=== PATIENT | female | born 1990 | race Caucasian/White ===

== ENCOUNTER 2023-05-12 19:10 | Emergency (ER) | payer BC, SELFPAY ==
[2023-05-12 19:24] VITALS: BP 100/70; PULSE 69; RESP 20; TEMP 36.9; O2SAT 97; BMI 30.4
--- NOTE | 2023-05-12 19:31 | ECG_ITS ---
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
--- NOTE | 2023-05-12 21:43 | ED.CHESTPAI1 ---
HPI - Chest Pain General Chief Complaint: Chest Pain Stated Complaint: CHEST PAIN Time Seen by Provider: 05/12/23 19:31 Source: patient Mode of arrival: walk-in Limitations: no limitations History of Present Illness HPI narrative: I did not see or examine the patient. An EKG was obtained in triage and then the patient was placed back in the waiting room. She left without being seen by me or the APC. Exam Constitutional Vital Signs, click to edit/add: Last Vital Signs Temp 98.5 F 05/12/23 19:24 Pulse 69 05/12/23 19:24 Resp 20 05/12/23 19:24 BP 100/70 05/12/23 19:24 Pulse Ox 97 05/12/23 19:24 O2 Del Method Room Air 05/12/23 19:24 Course Vital Signs Vital signs: Vital Signs Temperature 98.5 F 05/12/23 19:24 Pulse Rate 69 05/12/23 19:24 Respiratory Rate 20 05/12/23 19:24 Blood Pressure 100/70 05/12/23 19:24 Pulse Oximetry 97 05/12/23 19:24 Oxygen Delivery Method Room Air 05/12/23 19:24 Temperature 98.5 F 05/12/23 19:24 Pulse Rate 69 05/12/23 19:24 Respiratory Rate 20 05/12/23 19:24 Blood Pressure 100/70 05/12/23 19:24 Pulse Oximetry 97 05/12/23 19:24 Oxygen Delivery Method Room Air 05/12/23 19:24 MDM - Chest Pain MDM Narrative Medical decision making narrative: I saw and reviewed the patient's EKG - see below I ordered blood tests and chest x-ray on this patient but she left without being seen. ECG Data Attestation: I personally reviewed and interpreted this ECG as follows: Interpretation: EKG interpretation: Emergency Department physician interpretation. Normal sinus rhythm at 60bpm. moderate right axis, normal intervals and no ST segment elevation or depression. Discharge Plan Discharge Patient Disposition: Left Without Being Seen Discharge Date/Time: 05/12/23 19:53
== END 2023-05-12 19:53 | disposition left against medical advice (07) ==
LOC: ER 19:42
PROVIDERS: Emergency Provider Emergency Medicine
DX: R07.9 Chest pain, unspecified (principal); Z53.21 Procedure and treatment not carried out due to patient leaving prior to being seen by health care provider
CPT/HCPCS: 80048; 84484; 85378; 93005

== ENCOUNTER 2024-04-10 09:02 | Outpatient (OUT) | payer OTHER, BC, SELFPAY ==
--- NOTE | 2024-04-10 | XR_ITS ---
The [address] [address] Patient Name: ELOY FERMIN MRN: [id number] date: 1990 Sex: F Assigned Patient Location: Current Patient Location: Accession/Order Number: [id number] Exam Date: 04/10/2024 09:08 Report Date: 04/11/2024 10:20 At the request of: LEELA GOODWIN Procedure: XR hand RT min 3V PROCEDURE: XR finger RT min 2V, XR hand RT min 3V COMPARISON: None. HISTORY: RIGHT FINGER PAIN FINDINGS: BONES:3 mm dorsal plate avulsion fracture base of the fifth distal phalanx with 2 mm of distraction. No dislocation. SOFT TISSUES:Soft tissue swelling EFFUSION:None visible. OTHER: Negative. XR/XR hand RT min 3V IMPRESSION: Dorsal plate avulsion fracture fifth distal phalanx Electronically authenticated by: KEISHA KENT Date: 04/11/2024 10:20
--- NOTE | 2024-04-10 | XR_ITS ---
The [address] [address] Patient Name: ELOY FERMIN MRN: [id number] date: 1990 Sex: F Assigned Patient Location: Current Patient Location: Accession/Order Number: [id number] Exam Date: 04/10/2024 09:51 Report Date: 04/11/2024 10:20 At the request of: LEELA GOODWIN Procedure: XR finger RT min 2V PROCEDURE: XR finger RT min 2V, XR hand RT min 3V COMPARISON: None. HISTORY: RIGHT FINGER PAIN FINDINGS: BONES:3 mm dorsal plate avulsion fracture base of the fifth distal phalanx with 2 mm of distraction. No dislocation. SOFT TISSUES:Soft tissue swelling EFFUSION:None visible. OTHER: Negative. XR/XR finger RT min 2V IMPRESSION: Dorsal plate avulsion fracture fifth distal phalanx Electronically authenticated by: KEISHA KENT Date: 04/11/2024 10:20
== END 2024-04-10 09:03 | disposition home or self-care (01) ==
LOC: EC 09:02
PROVIDERS: Visit Provider Orthopaedic Surgery
DX: M79.641 Pain in right hand (principal); S62.636A Displaced fracture of distal phalanx of right little finger, initial encounter for closed fracture
CPT/HCPCS: 73130; 73140

== ENCOUNTER 2024-04-11 13:59 | Day surgery (SDC) | payer OTHER, BC, SELFPAY ==
--- NOTE | 2024-04-11 | FL_ITS ---
[address] [address] Patient Name: ELOY FERMIN MRN: [id number] date: 1990 Sex: F Assigned Patient Location: SURGOUT Current Patient Location: Accession/Order Number: [id number] Exam Date: 04/11/2024 16:00 Report Date: 04/12/2024 09:33 At the request of: LEELA GOODWIN Procedure: FL fluoroscopy <1hr NON-READ EXAM: FL fluoroscopy <1hr NON-READ HISTORY: TECHNIQUE: FINDINGS: Please see Operative Report. Electronically authenticated by: RADIOLOGIST NO Date: 04/12/2024 09:33
--- NOTE | 2024-04-11 14:06 | ECG_ITS ---
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
[2024-04-11 14:16] LABS: Basophils Percent Auto 0.6 % (0.2-2.0); Eosinophils Absolute Auto 0.1 10^3/uL (0.0-0.7); Eosinophils Percent Auto 1.2 % (0.9-7.0); Hematocrit 39.2 % (36.0-48.0); Hemoglobin 12.9 g/dL (12.0-16.0); Immature Granulocytes Abs Auto 0.01 10^3/uL (0.00-0.03); Immature Granulocytes Pct Auto 0.2 % (0.0-0.5); Lymphocytes Absolute Auto 2.7 10^3/uL (1.2-3.8); Lymphocytes Percent Auto 40.5 % (20.5-60.0); Mean Corpuscular HGB Conc 32.9 g/dL (29.9-35.2); Mean Corpuscular Hemoglobin 29.4 pg (26.7-34.0); Mean Corpuscular Volume 89.3 fL (81.0-99.0); Monocytes Absolute Auto 0.5 10^3/uL (0.3-0.8); Monocytes Percent Auto 7.6 % (1.7-12.0); Neutrophils Absolute Auto 3.3 10^3/uL (1.4-6.5); Neutrophils Percent Auto 49.9 % (43.0-75.0); Platelet Count 234 10^3/uL (150-450); Red Blood Count 4.39 10^6/uL (4.20-5.40); Red Cell Distribution Width 12.2 % (11.0-15.0); White Blood Count 6.6 10^3/uL (4.0-11.0)
[2024-04-11 14:28] LABS: Anion Gap 10.6; BUN Creatinine Ratio 16.2; Calcium 8.9 mg/dL (8.5-10.1); Carbon Dioxide 27.3 mmol/L (21.0-32.0); Chloride 108 mmol/L (98-107); Estimated GFR (African America >60 (>=60 mL/min/1.73m^2); Estimated GFR (Non-African Ame >60 (>=60 mL/min/1.73m^2); Glucose 90 mg/dL (74-106); Potassium 3.9 mmol/L (3.5-5.1); Sodium 142 mmol/L (136-145)
[2024-04-11 14:30] VITALS: BP 135/62; PULSE 72; TEMP 36.6; O2SAT 97; BMI 36.0
[2024-04-11 14:33] LABS: INR 1.07; Prothrombin Time 11.3 sec (9.0-11.6)
[2024-04-11 14:35] LABS: HCG Qualitative NEGATIVE (NEGATIVE); Internal Control Within Normal Limits
[2024-04-11 15:10] LABS: Partial Thromboplastin Time 34.5 sec (22.3-36.2)
[2024-04-11] MEDS: 0.9 % SODIUM CHLORIDE 500 ML 50 ML IV (15:17)
[2024-04-11] MEDS: CEFAZOLIN SODIUM 2 GM/50 ML D5W PREMIX IV (15:51)
[2024-04-11] MEDS: BUPIVACAINE HCL 0.5% PF 50 MG/10 ML VIAL INJ (16:08)
[2024-04-11] MEDS: LIDOCAINE HCL 1% 100 MG/10 ML MDV 3 ML INJ (16:08)
[2024-04-11 16:43] VITALS: BP 137/72; PULSE 85; TEMP 36.6; O2SAT 100
--- NOTE | 2024-04-11 16:46 | PM.ORPRC ---
Procedure Note Date of procedure: 04/11/24 Pre-op diagnosis: Right small finger bony mallet fracture Post-op diagnosis: same as pre-op Procedure: Procedures:: Right small finger closed reduction percutaneous pinning Operative procedure: After informed consent was obtained the patient was brought to the operating room where monitored anesthetic was administered. 3 mL 1% lidocaine plain combined with 3 mL 0.5% Marcaine plain were used to perform a digital block. The right hand was prepped and draped in the usual sterile fashion. Using C-arm fluoroscopy as guidance a 4 5 K wire was placed from the tip of the finger extending into the intramedullary canal of the distal phalanx of the small finger. This was stopped short of the DIP joint. With full extension then of the DIP joint the fracture was not reduced. Next to the fifth DIP joint was placed in hyperflexion and using fluoroscopy under the lateral view a blocking K wire was placed just posterior to the bony mallet fragment and driven across both cortices from dorsal to ventral. Next with extension of the DIP joint there was nice reduction of the fracture fragment to the shaft of the distal phalanx. The intramedullary K wire was then driven across the DIP joint. Final x-rays in multiple planes revealed a reduced DIP joint as well as a reduced fracture fragment. Less than 1 mm of articular step-off. K wires were cut just protruding out of the skin. Sterile dressing was placed and a loosely placed plaster cast was placed across the DIP joint. This was overwrapped with Coban. Patient was brought to the recovery room in stable condition. There were no intraoperative or immediate postoperative complications. Anesthesia: MAC and local Surgeon: Niko Leonard Estimated blood loss (mL): 1 Pathology: none sent Condition: stable Disposition: PACU
[2024-04-11 16:58] VITALS: BP 154/82; PULSE 73; O2SAT 100
[2024-04-11 17:13] VITALS: BP 160/90; PULSE 65; O2SAT 100
== END 2024-04-11 17:20 | disposition home or self-care (01) ==
PROVIDERS: Visit Provider Orthopaedic Surgery
PROC: (CPT 1820; principal; 2024-04-11 15:30)
DX: S62.636A Displaced fracture of distal phalanx of right little finger, initial encounter for closed fracture (principal); D68.00 Von Willebrand disease, unspecified; X58.XXXA Exposure to other specified factors, initial encounter
CPT/HCPCS: 26756; 36415; 76000; 80048; 84703; 85025; 85610; 85730; 93005; J0665; J0690; J2250; J2704; J3010

== ENCOUNTER 2024-04-24 08:38 | Outpatient (OUT) | payer OTHER, BC, SELFPAY ==
--- NOTE | 2024-04-24 | XR_ITS ---
The [address] [address] Patient Name: ELOY FERMIN MRN: [id number] date: 1990 Sex: F Assigned Patient Location: Current Patient Location: Accession/Order Number: [id number] Exam Date: 04/24/2024 08:45 Report Date: 04/26/2024 06:40 At the request of: LEELA GOODWIN Procedure: XR finger RT min 2V PROCEDURE: XR finger RT min 2V HISTORY: RIGHT FINGER PAIN ; distal 5th phalanx fracture. COMPARISON: XR finger right 04/10/2024 FINDINGS: BONES:Interval pinning of the distal interphalangeal joint of the 5th digit and mildly displaced posterior corner fracture. SOFT TISSUES:Soft tissue swelling of 5th digit. EFFUSION:None visible. OTHER: Negative. XR/XR finger RT min 2V IMPRESSION: 1. Interval surgical pinning for repair of 5th distal phalanx posterior corner fracture. Electronically authenticated by: LEELA BARKSDALE Date: 04/26/2024 06:40
--- OUTSIDE RECORDS SUMMARY | 2024-04-24 08:57 | XMS_ITS | CCD ---
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 Role Phone CHRISTELLE ., DR BHAGAT Admitting Unavailable REQUEST, DR CAL LISTED Primary Care Unavaila ble CHRISTELLE ., DR BHAGAT Attending Unavailable CHRISTELLE ., DR BHAGAT Consulting Unavailable REQUEST, DR MCCALL LISTED Primary Care Unavaila ble WEST, DR KEISHA Alvarez Consulting Unavailable CHRISTELLE ., DR BHAGAT Attending Unavailable CHRISTELLE ., DR BHAGAT Admitting Unavailable CHRISTELLE ., DR BHAGAT Consulting Unavailable CHRISTELLE ., DR BHAGAT Attending Unavailable CHRISTELLE ., DR BHAGAT Consulting Unavailable CHRISTELLE ., DR BHAGAT Admitting Unavailable REQUEST, DR MCCALL LISTED Primary Care Unavaila BALDEMAR Mackey Attending Unavailable BALDEMAR FLETCHER Consulting Unavailable BALDEMAR FLETCHER Admitting Unavailable REQUEST, DR MCCALL LISTED Primary Care Unavaila ble NIKKI HATFIELD Consulting Unavailable REQUEST, DR MCCALL LISTED Primary Care Unavaila ble CHRISTELLE ., DR BHAGAT Attending Unavailable CHRISTELLE ., DR BHAGAT Consulting Unavailable CHRISTELLE ., DR BHAGAT Admitting Unavailable 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, 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 A Primary Care Provider Unavailable Primary Care Provider Unavailabl e OLAYINKA BOURGEOIS Attending Unavailable CHRISTELLEOLAYINKA Attending Unavailable CHRISTELLEOLAYINKA Attending Unavailable Allergies Allergy Classification Reported Allergen(s) Allergy Type Date of Onset Reaction(s) Facility (1 source) NSAIDs Drug allergy (disorder) [facility] Repository (7 sources) Non-steroidal anti-inflammator y agent Propensity to adverse reactions to drug 2 [employer] [facility] Work Phone: (2 sources) Non-steroidal anti-inflammator y agent Drug Intolerance 2 [facility] Work Phone: Medications Current Medications Medication Drug Class(es) Dates Sig (Normalized) Sig (Original) acetaminophen 500 mg oral capsule (8 sources) Start: 01-21-2024 take 1000 mg by mouth every six hours Acetaminophen Active 1000 MG PO Every 6 hours January 21, 2024 12:00am Start: 05-13-2023 take 2 tablets by mo uth every six hours acetaminophen (TYLENOL EXTRA STRENGTH) 500 mg tablet Take 2 tablets (1,000 mg total) by mouth every 6 (six) hours. 60 tablet 1 05/13/2023 Active cholecalciferol 0.1 mg oral capsule (11 sources) Vitamin D Start: 06-18-2022 take 1 capsule by mouth once in the morning cholecalciferol, vitamin D3, (VITAMIN D3) 100 mcg (4,000 unit) capsule Indications: Vitamin D deficiency Take 4,000 Units by mouth in the morning. 30 capsule 11 06/18/2022 Active cholecalciferol (Vitamin D-3) 25 MCG (1000 UT) capsule Vitamin D3 Active Cholecalciferol 10 MCG (400 UNIT) chewable tablet Cholecalciferol Active citalopram 20 mg oral tablet (2 sources) Serotonin Reuptake Inhibitor Start: 04-12-2023 End: 04-11-2024 take 1 tablet by mouth in the morning citalopram (CeleXA) 20 MG tablet Indications: anxiety Take 1 tablet (20 mg) by mouth in the morning. 30 tablet 11 04/12/2023 Active ferrous sulfate 325 mg oral tablet (8 sources) Start: 03-31-2023 End: 08-02-2024 take 1 tablet by mouth once daily at breakfast ferrous sulfate 325 (65 FE) mg tablet Take 1 tablet (325 mg total) by mouth daily with breakfast. 90 tablet 3 08/03/2023 08/02/2024 Active folic acid 1 mg oral tablet (7 sources) Start: 01-06-2023 take 1 tablet by mouth in the morning folic acid (FOLVITE) 1 mg tablet Indications: Folate deficiency TAKE 1 TABLET (1 MG TOTAL) BY MOUTH IN THE MORNING 30 tablet 11 01/06/2023 Active 25/iron fum/folic/dha (-1 ORAL) (7 sources) 25/iron fum/folic/dha (-1 ORAL) Take by mouth. Active 25/iron fum/folic/dha (-1 ORAL) Take by mouth. 0 Active 27-1 MG tablet (2 sources) 27-1 MG tablet 1 (one) time each day at the same time. Active tranexamic acid 650 mg oral tablet (4 sources) Antifibrinolytic Agent Start: 4 End: 4 tranexamic acid (LYSTEDA) 650 mg tablet Indications: Type 1 von Willebrand disease (CMS-HCC) , Menorrhagia with regular cycle Take 2 tablets (1,300 mg total) by mouth 3 (three) times a day for 5 days. First dose: 1-2 hours pre-op, then every 8 hours for 5 days postop. 30 tablet 04/10/2024 04/15/2024 Active vitamin b12 2.5 mg oral tablet (9 sources) Vitamin B12 Start: 3 take 1 tablet by mouth in the morning cyanocobalamin, vitamin B-12, 2,500 mcg tablet Indications: B12 deficiency , Lactating mother Take 1 tablet by mouth in the morning. 30 tablet 11 06/18/2022 Active cyanocobalamin ( Vitamin B-12) 100 MCG tablet Vitamin B12 Active Completed/Discontinued Medications Medication Drug Class(es) Dates Sig (Normalized) Sig (Original) docusate sodium 100 mg oral capsule (1 source) Start: 03-31-2023 End: 08-03-2023 take 1 capsule by mouth in the morning, then take 1 capsule by mouth at bedtime docusate sodium (COLACE) 100 mg capsule Take 1 capsule (100 mg total) by mouth in the morning and 1 capsule (100 mg total) before bedtime. 60 capsule 1 03/31/2023 08/03/2023 Discontinued omeprazole 20 mg delayed release oral capsule (1 source) Proton Pump Inhibitor Start: 03-01-2023 End: 08-03-2023 take 1 capsule by mouth once daily in the morning omeprazole (PriLOSEC) 20 mg capsule TAKE 1 CAPSULE BY MOUTH EVERY DAY IN THE MORNING 30 capsule 3 03/01/2023 08/03/2023 Discontinued polyethylene glycol 3350 [id number] mg powder for oral solution (1 source) Osmotic Laxative Start: 04-01-2023 End: 08-03-2023 polyethylene glycol (GLYCOLAX) 17 gram packet Take 17 g by mouth in the morning. 30 packet 1 04/01/2023 08/03/2023 Discontinued Problems Active Problems Problem Classification Problem Date Documented Da te Episodic/Chronic Coagulation and hemorrhagic disorders (20 sources) von Willebrand disease type 1; Translations: [Type 1 von Willebrand disease (CMS-HCC)] Onset: 07-01-2006 Resolved: 04-04-2019 08-03-2023 Chronic Menstrual disorders (8 sources) Irregular menstruation, unspecified; Translations: [Menorrhagia] Onset: 06-09-2022 Chronic Nausea and vomiting (1 source) Nausea; Translations: [Nausea] 04-10-2024 Episodic Other endocrine disorders (1 source) Polycystic ovary syndrome; Translations: [Polycystic ovarian syndrome] 04-10-2024 Chronic Other gastrointestinal disorders (8 sources) Malabsorption - iron; Translations: [Intestinal malabsorption, unspecified] Onset: 08-03-2023 08-03-2023 Chronic Other hematologic conditions (1 source) H/O: anemia - iron deficient; Translations: [Personal history of diseases of the blood and blood-forming organs and certain disorders involving the immune mechanism] 08-03-2023 Episodic Other hematologic conditions (1 source) History of anemia; Translations: [Personal history of diseases of the blood and blood-forming organs and certain disorders involving the immune mechanism] 04-10-2024 Episodic Past or Other Problems Problem Classification Problem Date Documented Date Episodic/Chronic Contraceptive and procreative management (14 sources) Sterilization requested; Translations: [Encounter for sterilization] Onset: 12-30-2016 Resolved: 04-04-2019 12-03-2022 Episodic Deficiency and other anemia (7 sources) Folate deficiency anemia due to dietary causes; Translations: [Dietary folate deficiency anemia] Onset: 12-31-2022 02-12-2023 Episodic Genitourinary symptoms and ill-defined conditions (7 sources) Decreased urine output; Translations: [Anuria and oliguria] Onset: 12-29-2016 Resolved: 04-04-2019 08-24-2022 Episodic Hemorrhage during ; abruptio placenta; placenta previa (4 sources) Hemorrhage in early , unspecified; Translations: [HEMORRHAGE EARLY UNS] Onset: 08-09-2022 Episodic Hypertension complicating ; childbirth and the puerperium (7 sources) -induced hypertension; Translations: [Gestational [-induced] hypertension without significant proteinuria, unspecified trimester] Onset: 12-29-2016 Resolved: 04-04-2019 08-24-2022 Episodic Liveborn (7 sources) Born by section; Translations: [Single liveborn , delivered by ] Onset: 01-25-2018 Resolved: 04-04-2019 08-24-2022 Episodic Mood disorders (7 sources) Mood disorders Onset: 08-03-2023 08-03-2023 Nonmalignant breast conditions (7 sources) Lump in left breast; Translations: [Unspecified lump in the left breast, unspecified quadrant] Onset: 04-18-2020 Resolved: 05-28-2020 05-28-2020 Episodic Nutritional deficiencies (8 sources) Iron deficiency; Translations: [Iron deficiency] Onset: 08-03-2023 08-03-2023 Episodic Other complications of (9 sources) Iron deficiency anemia; Translations: [Anemia complicating , unspecified trimester] Onset: 08-05-2020 Resolved: 03-30-2023 12-31-2022 Chronic Other complications of (9 sources) Complication occurring during ; Translations: [Other diseases of the blood and blood-forming organs and certain disorders involving the immune mechanism complicating , unspecified trimester] Onset: 05-28-2020 Resolved: 03-30-2023 05-28-2020 Episodic Other complications of (9 sources) RhD negative; Translations: [Other specified related conditions, unspecified trimester] Onset: 09-16-2020 Resolved: 03-30-2023 03-05-2023 Episodic Other connective tissue disease (2 sources) Diastasis recti; Translations: [Separation of muscle (nontraumatic), other site] Onset: 11-08-2023 11-08-2023 Episodic Other and delivery including normal (20 sources) Encounter for supervision of other normal , first trimester; Translations: [Encounter for supervision of normal , unspecified, first trimester] Onset: 12-28-2016 Resolved: 03-04-2023 Episodic Previous (7 sources) ; Translations: [Maternal care for unspecified type scar from previous delivery] Onset: 04-18-2020 Resolved: 10-18-2020 10-18-2020 Episodic Residual codes; unclassified (1 source) Less than 8 weeks gestation of ; Translations: [< 8 WEEKS GESTATION ] Onset: 08-11-2022 Episodic Residual codes; unclassified (9 sources) Carrier of cystic fibrosis gene mutation; 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] Onset: 04-18-2020 12-03-2022 Episodic Results Test Name Value Interpretation Reference Range Facility CBC auto differentialon 07-09 Basophils (Bld) [#/Vol] 0.0 10*3/uL [facility] Basophils/100 WBC (Bld) 0.7 % [facility] Eosinophils (Bld) [#/Vol] 0.1 10*3/uL [facility] Eosinophils/100 WBC (Bld) 2.0 % [facility] Erythrocyte distribution width (RBC) [Ratio] 13.8 % 11.5 - 15.0 % [facility] Hematocrit (Bld) [Volume fraction] 41.2 % 35 - 47 % [facility] Hemoglobin (Bld) [Mass/Vol] 13.9 g/dL 11.7 - 15.5 g/dL [facility] Lymphocytes (Bld) [#/Vol] 1.7 10*3/uL [facility] Lymphocytes/100 WBC (Bld) 32.1 % [facility] MCH (RBC) [Entitic mass] 29.3 pg 27 - 34 pg [facility] MCHC (RBC) [Mass/Vol] 33.8 g/dL 32 - 36 g/dL [facility] MCV (RBC) [Entitic vol] 87 fL 80 - 100 fL [facility] Monocytes (Bld) [#/Vol] 0.6 10*3/uL [facility] Monocytes/100 WBC (Bld) 10.6 % [facility] Neutrophils (Bld) [#/Vol] 2.9 10*3/uL [facility] Neutrophils/100 WBC (Bld) 54.6 % [facility] Platelet mean volume (Bld) [Entitic vol] 8.4 fL 7 - 12 fL [facility] Platelets (Bld) [#/Vol] 244 10*3/uL [facility] RBC (Bld) [#/Vol] 4.75 10*6/uL [facility] WBC corrected for nucl RBC Auto (Bld) [#/Vol] 5.4 [facility] Cobalamin (Vitamin B12) [Mas s/Vol]on 08-03-2023 [facility] Ferritinon 08-03-2023 Ferritin [Mass/Vol] 39 ng/mL 11 - 307 ng/mL P [facility] Ferritin [Mass/Vol]on 2023 [facility] Iron and TIBCon 08-03-2023 Interpretation and review of laboratory results Abnormal [facility] Iron [Mass/Vol] 59 ug/dL 50 - 170 ug/dL [facility] Iron binding capacity [Mass/Vol] 414 ug/dL 250 - 425 ug/dL [facility] Iron saturation [Mass fraction] 14 Low [facility] Vitamin B12on 08-03-2023 Cobalamin (Vitamin B12) [Mass/Vol] 275 pg/mL 180 - 914 pg/mL [facility] HEP B SURFACE ANTIGEN SCREEN on 09-08-2022 HBsAg Screen Negative Normal Negative [facility] Comment on above: Performed By: #### A 1C #### [facility] [address] [place] [address] Dr. Emilie Plascencia HEPATITIS C VIRUS AB W/ REFL EX QUANTon 09-08-2022 HCV AB Non-Reactive Normal Non Reactive [facility] Comment on above: Performed By: #### H CVPCRR #### [facility] [address] [address] [address] Emilie Plascencia Interpretation: Comment Normal [facility] Comment on above: Result Comment: Not infected with HCV unless early or acute infection is suspected (which may be delayed in an immunocompromised individual), or other evidence exists to indicate HCV infection. Performed By: #### H CVPCRR #### [facility] [address] [place] [address] Dr. Emilie Plascencia HIV 1 AND 2 WITH REFLEXon HIV Screen 4th Generation wRfx Non-Reactive Normal Non Reactive [facility] Comment on above: Result Comment: HIV Negative HIV-1/HIV-2 antibodies and HIV-1 p24 antigen were NOT detected. There is no laboratory evidence of HIV infection. Performed By: #### H IV12 #### [facility] [address] [place] [address] Dr. Emilie Plascencia RPR QUANTon 09-08-2022 Rapid Plasma Reagin, Quant Non-Reactive Normal NonRea<1:1 [facility] Comment on above: Result Comment: Plea se Note: This test does not meet current guidelines for screening and diagnosis of syphilis. This test is intended for following treatment response in patients being treated for syphilis infection. To screen for syphilis infection, a reflex cascade that includes both RPR and a treponema-specific assay should be utilized, such as Treponema pallidum (Syphilis) Screening [place] (495148) or Rapid Plasma Reagin (RPR) Test With Reflex to Quantitative RPR and Confirmatory Treponema pallidum Antibodies (744127). Performed By: #### A 1C #### [facility] [address] [place] [address] Dr. Emilie Plascencia RUBELLA AB IGGon 09-08-2022 Rubella Antibodies, IgG 1.82 index Normal Immune >0.99 [facility] Comment on above: Result Comment: Non- immune <0.90 Equivocal 0.90 - 0.99 Immune >0.99 Performed By: #### R UBIGG #### [facility] [address] [place] [address] Dr. Emilie Plascencia BOX TEST SENT OUTon 09-06-19 23 SENT TO REF LAB 09/05/2022 Normal [facility] Comment on above: Performed By: #### A 1C #### [facility] [address] [place] [address] Dr. Emilie Plascencia CBC AUTO DIFFon 09-05-2022 BASO # 0.0 103/ul Normal 0.0-0.1 [facility] Comment on above: Performed By: #### C BC #### [facility] [address] [place] [address] Dr. Emilie Plascencia Basophils/100 WBC (Bld) 0.5 % Normal 0.2-2.0 [facility] Comment on above: Performed By: #### C BC #### [facility] [address] [place] [address] Dr. Emilie Plascencia EO # 0.1 103/ul Normal 0.0-0.7 [facility] Comment on above: Performed By: #### C BC #### [facility] [address] [place] [address] Dr. Emilie Plascencia Eosinophils/100 WBC (Bld) 1.2 % Normal 0.9-7.0 [facility] Comment on above: Performed By: #### C BC #### [facility] [address] [place] [address] Dr. Emilie Plascencia Erythrocyte distribution width (RBC) [Ratio] 12.8 % Normal 11.0-15.0 [facility] Comment on above: Performed By: #### C BC #### [facility] [address] [place] [address] Dr. Emilie Plascencia Hematocrit (Bld) [Volume fraction] 39.1 % Normal 36.0-48.0 [facility] Comment on above: Performed By: #### C BC #### [facility] [address] [place] [address] Dr. Emilie Plascencia Hemoglobin (Bld) [Mass/Vol] 12.9 g/dL Normal 12.0-16.0 [facility] Comment on above: Performed By: #### C BC #### [facility] [address] [place] [address] Dr. Emilie Plascencia IG # 0.04 10e3/ul Critically high 0.00-0.03 [facility] Comment on above: Performed By: #### C BC #### [facility] [address] [place] [address] Dr. Emilie Plascencia IG % 0.5 % Normal 0.0-0.5 [facility] Comment on above: Performed By: #### C BC #### [facility] [address] [place] [address] Dr. Emilie Plascencia LYMPH # 1.9 103/ul Normal 1.2-3.8 [facility] Comment on above: Performed By: #### C BC #### [facility] [address] [place] [address] Dr. Emilie Plascencia Lymphocytes/100 WBC (Bld) 23.7 % Normal 20.5-60.0 [facility] Comment on above: Performed By: #### C BC #### [facility] [address] [place] [address] Dr. Emilie Plascencia MANUAL DIFF REQ NO Normal [facility] Comment on above: Performed By: #### C BC #### [facility] [address] [place] [address] Dr. Emilie Plascencia MCH (RBC) [Entitic mass] 29.4 pg Normal 26.7-34.0 [facility] Comment on above: Performed By: #### C BC #### [facility] [address] [place] [address] Dr. Emilie Plascencia MCHC (RBC) [Mass/Vol] 33.0 g/dL Normal 29.9-35.2 [facility] Comment on above: Performed By: #### C BC #### [facility] [address] [place] [address] Dr. Emilie Plascencia MCV (RBC) [Entitic vol] 89.1 fL Normal 81.0-99.0 [facility] Comment on above: Performed By: #### C BC #### [facility] [address] [place] [address] Dr. Emilie Plascencia MONO # 0.5 103/ul Normal 0.3-0.8 [facility] Comment on above: Performed By: #### C BC #### [facility] [address] [place] [address] Dr. Emilie Plascencia Monocytes/100 WBC (Bld) 6.7 % Normal 1.7-12.0 [facility] Comment on above: Performed By: #### C BC #### [facility] [address] [place] [address] Dr. Emilie Plascencia NEUT # 5.4 103/ul Normal 1.4-6.5 [facility] Comment on above: Performed By: #### C BC #### [facility] [address] [place] [address] Dr. Emilie Plascencia Neutrophils/100 WBC (Bld) 67.4 % Normal 43.0-75.0 [facility] Comment on above: Performed By: #### C BC #### [facility] [address] [place] [address] Dr. Emilie Plascencia Platelet mean volume (Bld) [Entitic vol] 10.3 fL Normal 9.5-13.5 [facility] Comment on above: Performed By: #### C BC #### [facility] [address] [place] [address] Dr. Emilie Plascencia PLT 284 103/ul Normal 150-450 [facility] Comment on above: Performed By: #### C BC #### [facility] [address] [place] [address] Dr. Emilie Plascencia RBC 4.39 106/ul Normal 4.20-5.40 [facility] Comment on above: Performed By: #### C BC #### [facility] [address] [place] [address] Dr. Emilie Plascencia WBC 8.0 103/ul Normal 4.0-11.0 [facility] Comment on above: Performed By: #### C BC #### [facility] [address] [place] [address] Dr. Emilie Plascencia CULTURE URINEon 09-05-2022 CULTURE URINE Culture Observations : LIGHT GROWTH OF MIXED GENITAL ESCOBAR. NO POTENTIAL PATHOGENS SEEN. Normal [facility] Comment on above: Performed By: #### A 1C #### [facility] [address] [place] [address] Dr. Emilie Plascencia GLYCOHEMOGLOBIN A1Con 2022 ADA RECOMMENDATION SEE BELOW Normal [facility] Comment on above: Result Comment: ADA RECOMMENDED LIMIT 4.0 - 6.0 ADA THERAPEUTIC TARGET < 7.0 ACTION SUGGESTED > 7.0 Performed By: #### A 1C #### [facility] [address] [place] [address] Dr. Emilie Plascencia Glucose [Mass/Vol] 97 mg/dL Normal [facility] Comment on above: Performed By: #### A 1C #### [facility] [address] [place] [address] Dr. Emilie Plascenica HbA1c (Bld) [Mass fraction] 5.0 % Normal 4.5-6.2 [facility] Comment on above: Performed By: #### A 1C #### [facility] [address] [place] [address] Dr. Emilie Plascencia TSHon 09-05-2022 TSH 0.330 uIU/mL Critically low 0.358-3.740 [facility] Comment on above: Performed By: #### T SH #### [facility] [address] [place] [address] Dr. Emilie Plascencia TYPE AND SCREENon 09-05-2022 TYPE AND SCREEN Negative Normal [facility] Comment on above: Performed By: #### A 1C #### [facility] [address] [place] [address] Dr. Emilie Plascencia US PREG TVon 09-03-2022 US PREG TV EXAMINATION: US PREG TV HISTORY: Missed period COMPARISON: 08/09/2022 FINDINGS: Kincaid intrauterine gestation Gestational sac: 5.69 cm, 11 weeks 5 days CRL: 2.96 cm, 9 weeks 6 days Yolk sac: 2.6 mm heart rate: 164 bpm Cervix: Closed, 3.9 cm The uterus is normal in appearance. Anteverted, retroflexed The ovaries are not visualized Clinical age: 9 weeks 5 days Clinical MARY: 04/03/2023 Ultrasound age: 9 weeks 6 days Ultrasound MARY: 04/02/2023 IMPRESSION: Viable kincaid intrauterine measuring 9 weeks 6 days Electronically authenticated by: KEISHA KENT Date: 2022-09-03 15:33 Normal [facility] CBC AUTO DIFFon 08-09-2022 BASO # 0.0 103/ul Normal 0.0-0.1 [facility] Comment on above: Performed By: #### A 1C #### [facility] [address] [place] [address] Dr. Emilie Plascencia Basophils/100 WBC (Bld) 0.3 % Normal 0.2-2.0 [facility] Comment on above: Performed By: #### A 1C #### [facility] [address] [place] [address] Dr. Emilie Plascencia EO # 0.1 103/ul Normal 0.0-0.7 [facility] Comment on above: Performed By: #### A 1C #### [facility] [address] [place] [address] Dr. Emilie Plascencia Eosinophils/100 WBC (Bld) 1.4 % Normal 0.9-7.0 [facility] Comment on above: Performed By: #### A 1C #### [facility] [address] [place] [address] Dr. Emilie Plascencia Erythrocyte distribution width (RBC) [Ratio] 12.7 % Normal 11.0-15.0 [facility] Comment on above: Performed By: #### A 1C #### [facility] [address] [place] [address] Dr. Emilie Plascencia Hematocrit (Bld) [Volume fraction] 35.7 % Critically low 36.0-48.0 [facility] Comment on above: Performed By: #### A 1C #### [facility] [address] [place] [address] Dr. Emilie Plascencia Hemoglobin (Bld) [Mass/Vol] 12.0 g/dL Normal 12.0-16.0 [facility] Comment on above: Performed By: #### A 1C #### [facility] [address] [place] [address] Dr. Emilie Plascencia IG # 0.01 10e3/ul Normal 0.00-0.03 [facility] Comment on above: Performed By: #### A 1C #### [facility] [address] [place] [address] Dr. Emilie Plascencia IG % 0.2 % Normal 0.0-0.5 [facility] Comment on above: Performed By: #### A 1C #### [facility] [address] [place] [address] Dr. Emilie Plascencia LYMPH # 1.7 103/ul Normal 1.2-3.8 [facility] Comment on above: Performed By: #### A 1C #### [facility] [address] [place] [address] Dr. Emilie Plascencia Lymphocytes/100 WBC (Bld) 26.6 % Normal 20.5-60.0 [facility] Comment on above: Performed By: #### A 1C #### [facility] [address] [place] [address] Dr. Emilie Plascencia MANUAL DIFF REQ NO Normal [facility] Comment on above: Performed By: #### A 1C #### [facility] [address] [place] [address] Dr. Emilie Plascencia MCH (RBC) [Entitic mass] 29.3 pg Normal 26.7-34.0 [facility] Comment on above: Performed By: #### A 1C #### [facility] [address] [place] [address] Dr. Emilie Plascencia MCHC (RBC) [Mass/Vol] 33.6 g/dL Normal 29.9-35.2 [facility] Comment on above: Performed By: #### A 1C #### [facility] [address] [place] [address] Dr. Emilie Plascencia MCV (RBC) [Entitic vol] 87.3 fL Normal 81.0-99.0 [facility] Comment on above: Performed By: #### A 1C #### [facility] [address] [place] [address] Dr. Emilie Plascencia MONO # 0.5 103/ul Normal 0.3-0.8 [facility] Comment on above: Performed By: #### A 1C #### [facility] [address] [place] [address] Dr. Emilie Plascencia Monocytes/100 WBC (Bld) 6.9 % Normal 1.7-12.0 [facility] Comment on above: Performed By: #### A 1C #### [facility] [address] [place] [address] Dr. Emilie Plascencia NEUT # 4.2 103/ul Normal 1.4-6.5 [facility] Comment on above: Performed By: #### A 1C #### [facility] [address] [place] [address] Dr. Emilie Plasecncia Neutrophils/100 WBC (Bld) 64.6 % Normal 43.0-75.0 [facility] Comment on above: Performed By: #### A 1C #### [facility] [address] [place] [address] Dr. Emilie Plascencia Platelet mean volume (Bld) [Entitic vol] 9.7 fL Normal 9.5-13.5 [facility] Comment on above: Performed By: #### A 1C #### [facility] [address] [place] [address] Dr. Emilie Plascencia PLT 256 103/ul Normal 150-450 [facility] Comment on above: Performed By: #### A 1C #### [facility] [address] [place] [address] Dr. Emilie Plascencia RBC 4.09 106/ul Critically low 4.20-5.40 [facility] Comment on above: Performed By: #### A 1C #### [facility] [address] [place] [address] Dr. Emilie Plascencia WBC 6.5 103/ul Normal 4.0-11.0 [facility] Comment on above: Performed By: #### A 1C #### [facility] [address] [place] [address] Dr. Eimlie Plascencia ER URINE PROFILEon 3 Bilirubin Ql (U) Negative Normal NEGATIVE [facility] Comment on above: Performed By: #### E RUR #### [facility] [address] [place] [address] Dr. Emilie Plascencia Clarity (U) CLEAR Normal CLEAR [facility] Comment on above: Performed By: #### E RUR #### [facility] [address] [place] [address] Dr. Emilie Plascencia Color (U) LT. YELLOW Normal YELLOW [facility] Comment on above: Performed By: #### E RUR #### [facility] [address] [place] [address] Dr. Emilie MARSH A micrscopic examination will be performed if indicated. Normal [facility] Comment on above: Performed By: #### E RUR #### [facility] [address] [place] [address] Dr. Emilie Plascencia Glucose Ql (U) Negative Normal NEGATIVE [facility] Comment on above: Performed By: #### E RUR #### [facility] [address] [place] [address] Dr. Emilie Plascencia Hemoglobin Ql (U) Negative Normal NEGATIVE [facility] Comment on above: Performed By: #### E RUR #### [facility] [address] [place] [address] Dr. Emilie Plascencia Ketones Ql (U) Negative Normal NEGATIVE [facility] Comment on above: Performed By: #### E RUR #### [facility] [address] [place] [address] Dr. Emilie Plascencia LEUKOCYTES Negative Normal NEGATIVE [facility] Comment on above: Performed By: #### E RUR #### [facility] [address] [place] [address] Dr. Emilie Plascencia Nitrite Ql (U) Negative Normal NEGATIVE [facility] Comment on above: Performed By: #### E RUR #### [facility] [address] [place] [address] Dr. Emilie Plascencia pH (U) 6.0 [pH] Normal 5-9 [facility] Comment on above: Performed By: #### E RUR #### [facility] [address] [place] [address] Dr. Emilie Plascencia SPEC GRAVITY 1.010 Normal 1.005-<=1.025 [facility] Comment on above: Performed By: #### E RUR #### [facility] [address] [place] [address] Dr. Emilie Plascencia UA PROTEIN Negative Normal NEGATIVE/ TRACE [facility] Comment on above: Performed By: #### E RUR #### [facility] [address] [place] [address] Dr. Emilie Plascencia UR MICRO IND NOT INDICATED Normal [facility] Comment on above: Performed By: #### E RUR #### [facility] [address] [place] [address] Dr. Emilie Plascencia Urobilinogen Qn (U) 0.2 {Barbara'U}/dL Normal 0.2 - 1. 0 [facility] Comment on above: Performed By: #### E RUR #### [facility] [address] [place] [address] Dr. Emilie Plascencia PREG QUANT HCGon 08-09-2022 HCG QUANT 53119 mIU/mL Normal [facility] Comment on above: Performed By: #### P REGQNT #### [facility] [address] [place] [address] Dr. Emilie Plascencia HCG RANGE SEE BELOW Normal [facility] Comment on above: Result Comment: 5-50 0.2-1 WEEK 50-500 1-2 WEEKS 100-5,000 2-3 WEEKS 500-10,000 3-4 WEEKS 1,000-50,000 4-5 WEEKS 10,000-100,000 5-6 WEEKS 15,000-200,000 6-8 WEEKS 10,000-100,000 2-3 MONTHS Performed By: #### P REGQNT #### [facility] [address] [place] [address] Dr. Emilie Plascencia PROF CHEM 8 (BAS METB)on Anion gap [Moles/Vol] 12.3 mmol/L Normal [facility] Comment on above: Performed By: #### A 1C #### [facility] [address] [place] [address] Dr. Emilie Plascencia Calcium [Mass/Vol] 8.9 mg/dL Normal 8.5-10.[address] [facility] Comment on above: Performed By: #### A 1C #### [facility] [address] [place] [address] Dr. Emilie Plascencia Chloride [Moles/Vol] 107 mmol/L Normal 98-107 [facility] Comment on above: Performed By: #### A 1C #### [facility] [address] [place] [address] Dr. Emilie Plascencia CO2 [Moles/Vol] 26.6 mmol/L Normal 21.0-32.0 [facility] Comment on above: Performed By: #### A 1C #### [facility] [address] [address] [address] Emilie Plascencia Creatinine [Mass/Vol] 0.49 mg/dL Critically low 0.55-1.02 [facility] Comment on above: Performed By: #### A 1C #### [facility] [address] [place] [address] Dr. Emilie Plascencia EGFR-AF [place] >60 Normal >=60 [facility] Comment on above: Performed By: #### A 1C #### [facility] [address] [address] [address] Emilie Plascencia EGFR-NON AF [place] >60 Normal >=60 [facility] Comment on above: Performed By: #### A 1C #### [facility] [address] [place] [address] Dr. Emilie Plascencia Glucose [Mass/Vol] 93 mg/dL Normal 74-106 [facility] Comment on above: Performed By: #### A 1C #### [facility] [address] [address] [address] Emilie Plascencia Potassium [Moles/Vol] 3.9 mmol/L Normal 3.5-5.1 [facility] Comment on above: Performed By: #### A 1C #### [facility] [address] [place] [address] Dr. Emilie Plascencia Sodium [Moles/Vol] 142 mmol/L Normal 136-145 [facility] Comment on above: Performed By: #### A 1C #### [facility] [address] [place] [address] Dr. Emilie Plascencia Urea nitrogen [Mass/Vol] 10.0 mg/dL Normal 7.0-18.0 [facility] Comment on above: Performed By: #### A 1C #### [facility] [address] [place] [address] Dr. Emilie Plascencia Urea nitrogen/Creatinine [Mass ratio] 20.4 mg/mg Normal [facility] Comment on above: Performed By: #### A 1C #### [facility] [address] [place] [address] Dr. Emilie Plascencia US PREG TVon 08-09-2022 US PREG TV EXAM: US PREG TV INDICATION: Abnormal vaginal bleeding. COMPARISON: None for this . TECHNIQUE: Transvaginal pelvic ultrasound was performed. FINDINGS: Single intrauterine . Mean sac diameter: 1.3 cm, 5 weeks, 3 days [place]-rump length: 0.3 cm, 5 weeks, 6 days Yolk sac: Present heart rate: Not detected. Normal right ovary measuring 2.4 x 1.2 x 1.8 cm. Normal left ovary measuring 2.8 x 2.2 x 2.7 cm. Left ovary 2.8 x 2.2 x 2.7 cm corpus luteum cyst. No free pelvic fluid. IMPRESSION: Single intrauterine with gestational age of 5 weeks, 3 days based on today's ultrasound. No heart rate detected at this time, likely due to early gestation. Estimated delivery date is 04/05/2023. Electronically authenticated by: NIKKI HATFIELD Date: 2022-08-09 09:59 Normal [facility] PREG QUANT HCGon 06-05-2022 HCG QUANT <1 Normal [facility] Comment on above: Performed By: #### P REGQNT #### [facility] [address] [place] [address] Dr. Emilie Plascencia HCG RANGE SEE BELOW Normal [facility] Comment on above: Result Comment: 5-50 0.2-1 WEEK 50-500 1-2 WEEKS 100-5,000 2-3 WEEKS 500-10,000 3-4 WEEKS 1,000-50,000 4-5 WEEKS 10,000-100,000 5-6 WEEKS 15,000-200,000 6-8 WEEKS 10,000-100,000 2-3 MONTHS Performed By: #### P REGQNT #### [facility] [address] [place] [address] Dr. Emilie Plascencia PREG QUANT HCGon 05-27-2022 HCG QUANT 14 mIU/mL Normal [facility] Comment on above: Performed By: #### P REGQNT #### [facility] [address] [place] [address] Dr. Emilie Plascencia HCG RANGE SEE BELOW Normal [facility] Comment on above: Result Comment: 5-50 0.2-1 WEEK 50-500 1-2 WEEKS 100-5,000 2-3 WEEKS 500-10,000 3-4 WEEKS 1,000-50,000 4-5 WEEKS 10,000-100,000 5-6 WEEKS 15,000-200,000 6-8 WEEKS 10,000-100,000 2-3 MONTHS Performed By: #### P REGQNT #### [facility] [address] [place] [address] Dr. Emilie Plascencia PREG QUANT HCGon 05-25-2022 HCG QUANT 17 mIU/mL Normal [facility] Comment on above: Performed By: #### A 1C #### [facility] [address] [place] [address] Dr. Emilie Plascencia HCG RANGE SEE BELOW [facility] Comment on above: Result Comment: 5-50 0.2-1 WEEK 50-500 1-2 WEEKS 100-5,000 2-3 WEEKS 500-10,000 3-4 WEEKS 1,000-50,000 4-5 WEEKS 10,000-100,000 5-6 WEEKS 15,000-200,000 6-8 WEEKS 10,000-100,000 2-3 MONTHS Performed By: #### A 1C #### [facility] [address] [place] [address] Dr. Emilie Plascencia Vital Signs Date Time Vital Sign Value Performing Clinician Facility 04-10-2024 16:32-0500 Body height 157.5 cm [employer] Work Phone: [facility] 04-10-2024 16:32-0500 Body mass index (BMI) [Ratio] 33.65 kg/m2 [employer] Work Phone: [facility] 04-10-2024 16:32-0500 Body weight 83.46 kg [employer] Work Phone: [facility] 04-10-2024 16:32-0500 Diastolic blood pressure 70 mm[Hg] [employer] Work Phone: [facility] 04-10-2024 16:32-0500 Systolic blood pressure 118 mm[Hg] [employer] Work Phone: [facility] 01-21-2024 14:120400 Body height 157.[address] [facility] 01-21-2024 14:120400 Body mass index (BMI) [Ratio] 33.3 kg/m2 [facility] 01-21-2024 14:12-0400 Body temperature 98.9 [degF] [facility] 01-21-2024 14:120400 Body weight 82.[address] [facility] 01-21-2024 14:120400 Diastolic blood pressure 81 mm[Hg] [facility] 01-21-2024 14:120400 Heart rate 76 /min [facility] 01-21-2024 14:120400 Respiratory rate 16 /min [facility] 01-21-2024 14:120400 SaO2% (BldA) [Mass fraction] 97 % [facility] 01-21-2024 14:120400 Systolic blood pressure 118 mm[Hg] [facility] 08-03-2023 09:35-0500 Body height 157.5 cm Pineda Rojas MD Work Phone: [facility] 08-03-2023 09:35-0500 Body mass index (BMI) [Ratio] 32.02 kg/m2 Pineda Rojas MD Work Phone: [facility] 08-03-2023 09:35-0500 Body weight 79.4 kg Pineda Rojas MD Work Phone: [facility] 08-03-2023 09:35-0500 Diastolic blood pressure 66 mm[Hg] Pineda Rojas MD Work Phone: [facility] 08-03-2023 09:35-0500 Heart rate 78 /min Pineda Rojas MD Work Phone: [facility] 08-03-2023 09:35-0500 Systolic blood pressure 138 mm[Hg] Pineda Rojas MD Work Phone: [facility] Encounters Encounter Date Encounter Type Care Provider Facility Start: 04-10-2024 End: 04-10-2024 Office outpatient visit 15 minutes Olayinka Christelle DO Work Phone: [facility] Comment on above: H/O section ; Nausea; History of anemia; PCOS (polycystic ovarian syndrome) Start: 04-10-2024 End: 04-10-2024 ambulatory OLAYINKA CHRISTELLE Not Available Start: 04-10-2024 End: 04-10-2024 Bamboo flowsheet Olayinka Christelle DO Work Phone: [facility] Start: 04-10-2024 End: 04-10-2024 Bamboo flowsheet Olayinka Christelle DO Work Phone: [facility] Start: 04-10-2024 End: 04-10-2024 Telephone encounter Chelo Ness RN [facility] Comment on above: Surgical Or Dental C learance Type 1 von Willebran d disease ([facility]); Menorrhagia with regular cycle Start: 03-08-2024 End: 03-08-2024 Telephone encounter Chelo Ness RN [facility] Comment on above: Med Refill Start: 01-21-2024 End: 01-21-2024 ambulatory [facility] Work Phone: Start: 01-21-2024 End: 01-21-2024 Patient encounter procedure [facility] Work Phone: Start: 11-08-2023 End: 11-08-2023 ambulatory OLAYINKA CHRISTELLE Not Available Start: 08-24-2023 Documentation procedure [facility] Start: 08-03-2023 Orders Only Pineda Rojas MD Work Phone: [facility] Comment on above: Iron deficiency (Keshia korina Dx); Iron malabsorption; Type 1 von Willebrand disease ([facility]) Start: 08-03-2023 End: 08-03-2023 Office outpatient visit 15 minutes Pineda Rojas MD Work Phone: [facility] Comment on above: Type 1 von Willebran d disease ([facility]) (Primary Dx); History of iron deficiency anemia Start: 05-10-2023 End: 05-10-2023 ambulatory OLAYINKA BOURGEOIS Not Available Start: 11-04-2022 End: 11-04-[address] OLAYINKA BOURGEOIS . Facility: Start: 09-05-2022 End: 09-06-2022 ambulatory NONE LISTED REQUEST Facility: Start: 09-03-2022 End: 09-04-2022 ambulatory NONE LISTED REQUEST Facility: Start: 08-09-2022 End: 08-09-2022 ambulatory BALDEMAR ROBINSRACHELE Facility: Start: 05-25-2022 End: 06-06-[address] OLAYINKA BOURGEOIS . Facility: Procedures Date Procedure Procedure Detail Performing Clinician Start: 11-08-2023 H/O: section H/O s ection Olayinka Bourgeois DO Work Phone: Start: 08-03-2023 Adult depression screening assessment Pineda Rojas MD Work Phone: Start: 12-03-2022 H/O: section Previous delivery X 3, antepartum Pineda Rojas MD Work Phone: Start: 11-04-2022 Microscopic observat ion [Identifier] in Cervix by Cyto stain Pineda Rojas MD Work Phone: H/O: section H/O sectio n Olayinka Bourgeois DO Work Phone: Plan of Treatment Date Care Activity Detail Author Start: 12-31-2032 DTaP,Tdap and Td Vaccines (5 - Td or Tdap) DTaP,Tdap and Td Vaccines (5 - Td or Tdap) [facility] Start: 11-04-2025 Screening for malign ant neoplasm of cervix Pap Smear [facility] Start: 10-18-2024 End: 10-18-2024 Patient encounter procedure 10/18/2024 3:00 PM EDT Office Visit [facility] [address] [place] [id number] Olayinka Bourgeois DO [address] [place] [address] [facility] Start: 08-03-2024 Adult BMI Screening Adult BMI Screen ing [facility] Start: 08-03-2024 Depression Screening Depression Scre ening [facility] Start: 08-03-2024 Tobacco Screening Tobacco Screening [facility] Start: 05-02-2024 End: 05-02-2024 Patient encounter procedure 05/02/2024 8:00 AM EST Office Visit [facility] [address] [place] [address] Olayinka Bourgeois, DO [address] [place] [address] [facility] Start: 04-10-2024 End: 04-10-2024 Patient encounter procedure 04/10/2024 3:20 PM EST Consult [facility] [address] [place] [phone] Olayinka Bourgeois, DO [address] [place] [address] Arrived [facility] Comment on above: Arrived Start: 04-10-2024 End: 04-10-2025 CBC W Auto Differential panel - Blood CBC and differential Lab Routine History of anemia PCOS (polycystic ovarian syndrome) Expected: 04/10/2024 (Approximate), Expires: 04/10/2025 [facility] Comment on above: Expected: 04/10/2024 (Approximate), Expires: 04/10/2025 Start: 04-10-2024 End: 04-10-2025 DHEA DHEA Lab Routine History of anemia PCOS (polycystic ovarian syndrome) Expected: 04/10/2024, Expires: 04/10/2025 [facility] Comment on above: Expected: 04/10/2024 , Expires: 04/10/2025 Start: 04-10-2024 End: 04-10-2025 DHEA-sulfate DHEA-sulfate Lab Routine History of anemia PCOS (polycystic ovarian syndrome) Expected: 04/10/2024 (Approximate), Expires: 04/10/2025 [facility] Comment on above: Expected: 04/10/2024 (Approximate), Expires: 04/10/2025 Start: 04-10-2024 End: 04-10-2025 Follicle stimulating hormone Follicle stimulating hormone Lab Routine History of anemia PCOS (polycystic ovarian syndrome) Expected: 04/10/2024 (Approximate), Expires: 04/10/2025 [facility] Comment on above: Expected: 04/10/2024 (Approximate), Expires: 04/10/2025 Start: 04-10-2024 End: 04-10-2025 hCG, quantitative, hCG, quantitative, Lab Routine History of anemia PCOS (polycystic ovarian syndrome) Expected: 04/10/2024 (Approximate), Expires: 04/10/2025 [facility] Work Phone: Comment on above: Expected: 04/10/2024 (Approximate), Expires: 04/10/2025 Start: 04-10-2024 End: 04-10-2025 Hemoglobin A1c/Hemoglobin.total in Blood Hemoglobin A1c Lab Routine History of anemia PCOS (polycystic ovarian syndrome) Expected: 04/10/2024 (Approximate), Expires: 04/10/2025 [facility] Comment on above: Expected: 04/10/2024 (Approximate), Expires: 04/10/2025 Start: 04-10-2024 End: 04-10-2025 Luteinizing hormone Luteinizing hormone Lab Routine History of anemia PCOS (polycystic ovarian syndrome) Expected: 04/10/2024 (Approximate), Expires: 04/10/2025 [facility] Comment on above: Expected: 04/10/2024 (Approximate), Expires: 04/10/2025 Start: 04-10-2024 End: 04-10-2025 Thyrotropin [Units/volume] in Serum or Plasma TSH Lab Routine History of anemia PCOS (polycystic ovarian syndrome) Expected: 04/10/2024 (Approximate), Expires: 04/10/2025 [facility] Comment on above: Expected: 04/10/2024 (Approximate), Expires: 04/10/2025 Start: 04-10-2024 End: 04-10-2025 Thyroxine (T4) free [Mass/volume] in Serum or Plasma T4, free Lab Routine History of anemia PCOS (polycystic ovarian syndrome) Expected: 04/10/2024 (Approximate), Expires: 04/10/2025 [facility] Comment on above: Expected: 04/10/2024 (Approximate), Expires: 04/10/2025 Start: 04-10-2024 End: 04-10-2025 US for US PELVIS-TRANSVAG IF INDICATED Imaging Routine History of anemia PCOS (polycystic ovarian syndrome) Expected: 04/10/2024 (Approximate), Expires: 04/10/2025 [facility] Comment on above: Expected: 04/10/2024 (Approximate), Expires: 04/10/2025 Start: 02-06-2024 Influenza vaccination Influenza Vacc ine [facility] Start: 10-20-2009 Adult BMI Follow Up Plan Adult BMI Follow Up Plan [facility] Immunizations Immunization Date Immunization Notes Care Provider Fa [facility] 03-30-2023 RHO(D) immune globul in- IV or IM Pineda Rojas MD Work Phone: [facility] 02-12-2023 influenza, injectabl e, quadrivalent, preservative free Pineda Rojas MD Work Phone: [facility] 02-12-2023 RHO(D) immune globul in- IV or IM Pineda Rojas MD Work Phone: [facility] 02-12-2023 influenza virus vacc ine, unspecified formulation Chelo Ness RN [facility] 12-31-2022 RHO(D) immune globul in- IV or IM Pineda Roajs MD Work Phone: [facility] 12-31-2022 tetanus toxoid, redu sami diphtheria toxoid, and acellular pertussis vaccine, adsorbed Pineda Rojas MD Work Phone: [facility] 10-16-2020 RHO(D) immune globul in- IV or IM Pineda Rojas MD Work Phone: [facility] 09-30-2020 tetanus toxoid, redu sami diphtheria toxoid, and acellular pertussis vaccine, adsorbed Pineda Rojas MD Work Phone: [facility] 09-17-2020 influenza, injectabl e, quadrivalent, preservative free Pineda Rojas MD Work Phone: [facility] 01-27-2018 RHO(D) immune globul in- IV or IM Pineda Rojas MD Work Phone: [facility] 01-27-2018 tetanus toxoid, redu sami diphtheria toxoid, and acellular pertussis vaccine, adsorbed Pineda Rojas MD Work Phone: [facility] 12-30-2016 RHO(D) immune globul in- IV or IM Pinead Rojas MD Work Phone: [facility] 08-14-2016 influenza, injectabl e, quadrivalent, preservative free Pineda Rojas MD Work Phone: [facility] 05-04-2007 human papilloma viru s vaccine, quadrivalent Pineda Rojsa MD Work Phone: [facility] 05-04-2007 meningococcal polysaccharide (groups A, C, Y and W-135) diphtheria toxoid conjugate vaccine (MCV4P) Pineda Rojas MD Work Phone: [facility] 12-23-2005 hepatitis A vaccine, adult dosage Pineda Rojas MD Work Phone: [facility] 12-23-2005 hepatitis A vaccine, pediatric/adolescent dosage, 2 dose schedule Pineda Rojas MD Work Phone: [facility] 12-23-2005 hepatitis B vaccine, adult dosage Pineda Rojas MD Work Phone: [facility] 2005 hepatitis B vaccine, adult dosage Pineda Rojas MD Work Phone: [facility] 2005 hepatitis B vaccine, pediatric or pediatric/adolescent dosage Pineda Rojas MD Work Phone: [facility] 2005 tetanus toxoid, redu sami diphtheria toxoid, and acellular pertussis vaccine, adsorbed Pineda Rojas MD Work Phone: [facility] 2005 varicella virus vaccine Pineda Rojas MD Work Phone: [facility] [employer] Payers Date Payer Category Payer Private Health Insurance [id number] 2023 Managed Care Other (unspecified) [facility] [id number] 2023 Private Health Insurance [id number] 2020 [facility] [id number] 2020 [facility] Managed Care - Other [facility] [id number] 2020 Unknown [employer] OUT OF STATE PPO/TRUST [id number] 2020-Present [phone] [address] [place] [address] [id number] 1991 Unknown [id number] 1991 Unknown [id number] 1991 Unknown [id number] 1991 Unknown [id number] 1991 Unknown [id number] .[id number] 1991 Unknown [id number] .[id number] 1991 Unknown [id number] .[id number] 1991 Unknown [id number] 1959 Unknown [id number] 1959 Unknown [id number] Worker's Compensation [facility] [id number] Social History Date Type Detail Facility Start: 12-31-2022 End: 04-10-2024 Tobacco smoking status NHIS Never smoked tobacco [facility] Start: 12-31-2022 End: 04-10-2024 Tobacco use and exposure Smokeless tobacco non-user [facility] Start: 08-03-2023 Alcohol intake 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 (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) [facility] Start: 08-03-2023 End: 04-10-2024 Alcohol intake [facility] Start: 08-03-2023 End: 04-10-2024 Tobacco use panel [facility] How hard is it for you to pay for the very basics like food, housing, medical care, and heating Hard [facility] Adolescent depressio n screening assessment 0 [facility] Start: 07-29-2020 Education 15 [facility] Start: 1990 Sex Assigned At Female P [facility] Start: 05-15-2021 Gender identity Identifies as female gender (finding) [facility] Start: 01-08-2015 Sex Female (finding) [facility] Start: 11-08-2023 End: 04-10-2024 Alcoholic beverage intake Lifetime non-drinker (finding) [facility] NEGATED: Highlighted rowStart: NINF History of tobacco use Passive smoker [facility] Clinical Notes 08-03-2023 to 04-10-2024 Jeniffer Kemp - 04/10/2024 3:20 PM ESTTelephone Encounter - Chelo Ness RN - 04/10/2024 2:23 PM ESTTelephone Encounter - Chelo Ness RN - 04/10/2024 2:23 PM EST Note Date & Type Note Facility 04-10-2024 History of Present illness Narrative Reason for Appointment: Patient ID: Marylin Fermin is a 33 y.o. female who presents for Menstrual Problem Patient presents today for menstrual problems. 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 Type 1 von Willebrand disease ([facility]/HCC) 07/01/2006 Diastasis recti 11/08/2023 H/O section 11/08/2023 Resolved Ambulatory Problems Diagnosis Date Noted Hematologic disorder in mother affecting 05/28/2020 Iron deficiency anemia of mother during 08/05/2020 Rh negative state in antepartum period, third trimester 09/16/2020 Past Medical History: Diagnosis Date CF (cystic fibrosis) ([facility]) Gestational HTN 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[facility]) Miscarriage Need for rhogam due to Rh negative mother Von Willebrand disease ([facility]) HISTORY PAST MEDICAL HISTORY SOCIAL HISTORY Past Medical History: Diagnosis Date CF (cystic fibrosis) ([facility]) Gestational HTN 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 SURGICAL HISTORY Past Surgical History: Procedure Laterality Date BILATERAL SALPINGOOPHORECTOMY Bilateral 03/30/2023 BREAST BIOPSY SECTION, LOW TRANSVERSE 12/2016 SECTION, LOW TRANSVERSE 01/2018 SECTION, LOW TRANSVERSE 03/29/2023 with tubal ligation SECTION, LOW TRANSVERSE 03/30/2023 TUBAL LIGATION 03/29/2023 REVIEW OF SYSTEMS Review of Systems: Review of Systems Genitourinary: Positive for menstrual problem and pelvic pain. All other systems reviewed and are negative. OBJECTIVE Objective: OBGyn Exam Vitals: Estimated body mass index is 33.11 kg/m as calculated from the following: Height as of 05/10/23: 5' 2 . Weight as of 11/08/23: 181 lb. BP: No LMP recorded. ASSESSMENT & PLAN Patient to have telehealth appointment in 3 weeks. Discussed management endometrial ablation, Mirena or hysterectomy. Ordered PCOS labs and US to be done to check Uterine Scar from previous c-sections, which would effect options for management. Documented by Kely Cannon LPN on behalf of: Olayinka Bourgeois DO documented in this encounter [facility] 04-10-2024 Miscellaneous Notes Pre/ postop TXA documented in this encounter [facility] 04-10-2024 Telephone encounter Note Pre/ postop TXA [facility] 04-10-2024 Miscellaneous Notes Incoming patient message regarding surgery r/t a broken finger tomorrow, 04/11/24. Per Dr. Rojas's plan: TXA TID x 5 days, first dose being 1-2 hours prior to sx. Fax number for surgeon per patient message: LVM to patient to review plan and confirm pharmacy. Also to verify surgeon we are to fax clearance to. PC from patient, confirmed pharmacy and reviewed plan. Patient verbalized understanding. Script pended to Dr. Rojas. Clearance faxed via [employer]. documented in this encounter [facility] 04-10-2024 Telephone encounter Note Incoming patient message regarding surgery r/t a broken finger tomorrow, 04/11/24. Per Dr. Rojas's plan: TXA TID x 5 days, first dose being 1-2 hours prior to sx. Fax number for surgeon per patient message: LVM to patient to review plan and confirm pharmacy. Also to verify surgeon we are to fax clearance to. [facility] 04-10-2024 Telephone encounter Note PC from patient, confirmed pharmacy and reviewed plan. Patient verbalized understanding. Script pended to Dr. Rojas. Clearance faxed via [employer]. [facility] 03-08-2024 Miscellaneous Notes PC to patient to confirm pharmacy for menses TXA refill. [facility] [place] is preferred pharmacy. Updated in [employer]. documented in this encounter [facility] 03-08-2024 Telephone encounter Note PC to patient to confirm pharmacy for menses TXA refill. [facility] 03-08-2024 Telephone encounter Note [facility] [place] [facility] preferred [facility]. Updated in [employer]. [facility] 08-24-2023 History of Present illness Narrative Called and spoke with patient to scheduled iv iron on 08/18/23. She said she doesn't know if she can get off work and will call back to schedule. documented in this encounter [facility] 08-03-2023 History of Present illness Narrative Pt is here for 6 month follow up. Pt denies any bleeding issues. She reports being very dizzy the past couple of days and is having some neck pain. She is taking oral iron tablets and will need a refill. She has extreme fatigue. Images from the original note were not included. [facility] ADULT [facility] PEDIATRIC BENIGN HEMATOLOGY PEDIATRIC THROMBOPHILIA Dr.Dagmar Di Rojas OUTPATIENT FOLLOW-UP NOTE: [facility] Patient ID: Marylin Fermin, 32 y.o. female PCP: Amy Sullivan, ELECTRIC HOIST OPERATOR-COURT TRANSCRIBER : 1990 CHIEF COMPLAINT: Chief Complaint Patient presents with Follow-up HISTORY OF PRESENT ILLNESS: Marylin Fermin is a 32 y.o. female with history of type 1 von willebrand disease who presents today for follow-up at the [facility] due to recent . She was last seen in 12/2022 during . She was found have iron deficiency during . She was given intravenous iron with Venofer in 03/2023. She would improvement in her fatigue and dizziness with the iron infusions. She had her delivery on 03/29/2023. Her delivery was done via and she received a spinal for anesthesia. This went well without bleeding complications, but blood loss noted at 1400mL. She was having some bleeding in 04/2023 and took lysteda. Post- bleeding lasted for 1 month. Had tubal ligation as well. She is now here today for follow-up. PAST HEMATOLOGY HISTORY: She has a history of type 1 von Willebrand's disease. This was diagnosed [facility] in 2006 (age 16) when she developed bruising/ecchymoses with while playing rugby. She reports that her other initial symptoms were bleeding bumps on her skin, nose bleeds, and heavy periods. Oncology History Overview Note PATIENT DOES NOT HAVE CANCER. USING FOR BLEEDING HISTORY. Diagnosis: Type 1 vWD (vWag 43-55%, Rcof 30-33%() GOOD RESPONSE TO DDAVP Diagnosis hx: menorrhagia, epistaxis, prolonged bleeding with cuts Diagnostic Labs 08/24/06: Date Test Name Results Template Details 08/24/2006 Factor VIII Activity 2 Hours Post IV DDAVP 272 % activity Normal DDAVP Trial + Results open 08/24/2006 Factor VIII Activity Pre IV DDAVP 62 % activity Normal DDAVP Trial + Results open 08/24/2006 Factor VIII R: vWF assay 2 Hours Post IV DDAVP 192 % activity Normal DDAVP Trial + Results open 08/24/2006 Factor VIII R: vWF assay Pre IV DDAVP 37 % activity Abnormal DDAVP Trial + Results open 08/24/2006 PTT - Partial thromboplastin time - Pre Intranasal DDAVP (Stimate) Abnormal DDAVP Trial + Results open 08/24/2006 vWF Antigen 2 Hours Post IV DDAVP 169 % activity Normal DDAVP Trial + Results open 08/24/2006 vWF Antigen Pre IV DDAVP 52 % activity Normal DDAVP Trial + Results open 07/27/2006 Collagen ADP platelet function test 111 s Normal open 07/27/2006 Collagen/epinephrine platelet function test 208 s Abnormal open 07/27/2006 Factor VIII Activity 36 % activity Abnormal open 07/27/2006 Ristocetin cofactor assay 30 % activity Abnormal open 07/27/2006 vWF Antigen Baseline 55 % activity Normal open 07/27/2006 vWF multimer assay - von Willebrand factor (vWf) multimers in Platelet poor plasma by Immunoblot (IB) Normal open 07/01/2006 Factor VIII Activity Diagnosis Baseline 73 % activity Normal Coag Workup + Results open 07/01/2006 PT - Prothrombin time - INR in Platelet poor plasma by Coagulation assay 12.4 s Normal Coag Workup + Results open 07/01/2006 PTT - Partial thromboplastin time - Activated partial thrombplastin time (aPTT) in Platelet poor plasma by Coagulation assay 39.1 s Abnormal Coag Workup + Results open 07/01/2006 vWF Antigen Diagnosis Baseline 43 % Normal Coag Workup + Results open 07/01/2006 VWF factor activity - ristocetin cofactor diagnosis baseline 33 % activity Abnormal Coag Workup + Results open Type 1 von Willebrand disease (CMS-HCC) 07/01/2006 Initial Diagnosis Type 1 von Willebrand disease (HCC) 12/29/2016 Surgery - 1 unit platelets prior per previous attorney law clerk-unclear indication 10/15/2020 Surgery Delivery of baby girl. No treatment given. 03/29/2023 Surgery delivery of baby boy. No treatment needed. REVIEW OF SYSTEMS: Complete 10-point ROS is negative except as mentioned in HPI. PAST MEDICAL HISTORY: Past Medical History: Diagnosis Date Anemia History of gestational hypertension Lump of left breast 04/18/2020 Type 1 von Willebrand disease (CMS-HCC) PAST SURGICAL HISTORY: Past Surgical History: Procedure Laterality Date N/A 12/29/2016 Performed by Mel Luz MD at [facility] OR REPEAT N/A 10/15/2020 Performed by Vinicius Rosario MD at [facility] OR REPEAT N/A 01/25/2018 Performed by Ariel Ford MD at [facility] OR REPEAT TUBAL LIGATION N/A 03/29/2023 Performed by Keisha Baugh MD at [facility] OR INCISION AND DRAINAGE 03/30/2023 PAST FAMILY HISTORY: Family History Problem Relation Age of Onset Menorrhagia Mother Epistaxis Mother Hypertension Father No Known Problems Sister No Known Problems Brother No Known Problems Half Sister No Known Problems Half Brother No Known Problems Maternal Grandmother Dementia Paternal Grandmother Alzheimer's disease Paternal Grandmother Alzheimer's disease Paternal Grandfather Diabetes Neg Hx Mom has menorrhagia and heavy post- bleeding, she has not been tested for vWD. Sister and father were negative. SOCIAL HISTORY: Lives in [place], [place] with her family. 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 Tobacco Use Smoking status: Never Passive exposure: Never Smokeless tobacco: Never Vaping Use Vaping Use: Never used Substance and Sexual Activity Alcohol use: No Alcohol/week: 0.0 standard drinks of alcohol Drug use: No Sexual activity: Defer Partners: Male control/protection: None Other Topics Concern Not on file Social History Narrative Not on file Social Determinants of Health Financial Resource Strain: High Risk (03/08/2023) Overall Financial Resource Strain (CARDIA) Difficulty of Paying Living Expenses: Hard Food Insecurity: No Food Insecurity (08/03/2023) Hunger Screening Food Insecurity - Worry: Never True Food Insecurity - Inability: Never True Transportation Needs: No Transportation Needs (03/08/2023) PRAPARE - Transportation Lack of Transportation (Medical): No Lack of Transportation (Non-Medical): No Physical Activity: Not on file Stress: Not on file Social Connections: Not on file Interpersonal Safety: Not At Risk (12/03/2022) Humiliation, Afraid, Rape, and Kick questionnaire Fear of Current or Ex-Partner: No Emotionally Abused: No Physically Abused: No Sexually Abused: No Housing Instability: Low Risk (03/08/2023) Housing Instability Housing Instability: No MEDICATIONS: Current Outpatient Medications on File Prior to Visit Medication Sig Dispense Refill acetaminophen (TYLENOL EXTRA STRENGTH) 500 mg tablet Take 2 tablets (1,000 mg total) by mouth every 6 (six) hours. 60 tablet 1 cholecalciferol, vitamin D3, (VITAMIN D3) 100 mcg (4,000 unit) capsule Take 4,000 Units by mouth in the morning. 30 capsule 11 cyanocobalamin, vitamin B-12, 2,500 mcg tablet Take 1 tablet by mouth in the morning. 30 tablet 11 ferrous sulfate 325 (65 FE) mg tablet Take 1 tablet (325 mg total) by mouth daily with breakfast. 30 tablet 5 folic acid (FOLVITE) 1 mg tablet TAKE 1 TABLET (1 MG TOTAL) BY MOUTH IN THE MORNING 30 tablet 11 25/iron fum/folic/dha (-1 ORAL) Take by mouth. No current facility-administered medications on file prior to visit. ALLERGIES: Allergies Allergen Reactions Nsaids (Non-Steroidal Anti-Inflammatory Drug) Clotting disorder PHYSICAL EXAMINATION: Vital signs: BP 138/66 (BP Site: Left Arm, BP Postition: Sitting) Pulse 78 Ht 157.5 cm (5' 2 ) Wt 79.4 kg (175 lb 0.7 oz) Yes BMI 32.02 kg/m General appearance: awake, alert HEENT: supple, conjunctiva not pale CV: RRR, no murmurs PULM: CTAB, no wheezing ABD: soft, NT/ND EXT: No edema. LABORATORY DATA: Lab Results Component Value Date WBC 6.8 05/13/2023 HGB 12.9 05/13/2023 HCT 39.1 05/13/2023 MCV 88 05/13/2023 PLT 280 05/13/2023 Lab Results Component Value Date GLU 79 05/13/2023 CALCIUM 9.3 05/13/2023 SODIUM 137 05/13/2023 K 3.7 05/13/2023 CO2 25 05/13/2023 BUN 15 05/13/2023 CREATININE 0.67 05/13/2023 Lab Results Component Value Date ALT 3 03/30/2023 AST 13 03/30/2023 ALKPHOS 95 03/30/2023 Lab Results Component Value Date INR 1.1 05/13/2023 INR 1.0 03/29/2023 INR 1.0 02/12/2023 PROTIME 12.7 05/13/2023 PROTIME 11.5 03/29/2023 PROTIME 11.3 02/12/2023 BILLING: Total time spent was 23 minutes: Preparing to see the patient (e.g., review of tests) Obtaining and/or reviewing separately obtained history Performing a medically appropriate examination and/or evaluation Counseling and educating the patient/family/caregiver Ordering medications, tests, or procedures Documenting clinical information in the electronic or other health record IMAGING: Reviewed in [facility] ASSESSMENT/PLAN: Marylin Fermin is a 32 y.o. female with history of type 1 von willebrand disease who presents today for follow-up at the [facility] due to recent . 1. Type 1 von willebrand disease: Diagnosed based on low VWD levels (30% for Ristocetin at [facility]) in the setting of type A blood in 2006 (age 16). Multimers showed decrease in all multimers at that time. The patient was apparently diagnosed with type 1 VWD. Repeat VWD labs in 04/2023 showed antigen of 56, activity of 49, factor 8 of 69, and normal multimers. - Stable currently. - Anticipatory guidance given. - Notify [facility] of any upcoming surgeries or procedures. - No current menstrual bleeding (as ), but has used TXA PRN for menorrhagia in the past. - Our social welfare research worker met with the patient today during this comprehensive visit. 2. Iron deficiency anemia during recent : She was found have iron deficiency anemia during her recent . Her labs from 12/2022 showed hemoglobin of 12.3 and ferritin of 7. She was given IV iron with venofer 200mg x 5 doses in 03/2023. Hgb was 10-12 range in 03/2023 at time of delivery. Had 1400mL of EBL at time of delivery. Last hemoglobin in 05/2023 was 12.9. Check CBC and iron studies today. May need to consider repeat IV iron infusions given symptoms. Will await repeat labs. Continue oral iron and will refill. 3. Follow-up: - RTC in 1 year and PRN. Pineda Rojas MD Adult Instructional Leader [facility] Pager: [phone] Pt is a 32 year old female with vWD, here today with her , and 3 children Agreeable to meet with sw, family remained in the room Marylin resides in the [facility] with her Francisco (not affected), daughter Maryan 2 (vWD) and son Josiah (vWD) brother Ventura (not tested). There are no major bleeding concerns, she is currently still breast feeding Ventura, and has not had a period. There are no upcoming surgeries. 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 No major financial concerns reported today, family seems able to meet basic needs of the home. Insurance: family has commercial insurance. Family has submitted [facility] documents [facility], and have been approved through 03/09/24 for the children. This will help with any co-pays and other medications. The children were dressed appropriately, parents observed providing support and comfort for maryan who was crying. Dad appeared to be appropriate with his parenting by providing support. Parents appear to be loving and supportive. Marylin had some post , she is now doing much better, not taking any prescribed medications. Denies any SI or HI. No major psychosocial issues identified, sw encouraged particpation with [facility] activities, Camp, [employer], [employer], etc. Parents will consider camp for Josiah Much support provided Isidro FRIAS documented in this encounter [facility] Evaluation note Diagnosis Type 1 von Willebrand disease (CMS-HCC)- Primary Von Willebrand's disease History of iron deficiency anemia Personal history of diseases of blood and blood-forming organs documented [facility]* Diagnosis Iron deficiency- Primary Disorders of iron metabolism Iron malabsorption Other specified intestinal malabsorption Type 1 von Willebrand disease (CMS-HCC) Von Willebrand's disease [facility] note[facility] assessment information available [facility] Work Phone: Evaluation note* Diagnosis Type 1 von Willebrand disease (CMS-HCC) Von Willebrand's disease Menorrhagia with regular cycle documented [facility] this [facility]* Diagnosis H/O section Nausea Nausea alone History of anemia Personal history of diseases of blood and blood-forming organs PCOS (polycystic ovarian syndrome) Polycystic ovaries [facility] Attachments The following attachments cannot be sent through Care Everywhere. * Taking care of bruises (Colombian) documented [facility] SystemInstructionsNot on file documented in this [facility] SystemInstructionsNot on file documented in this encounterProPick[facility] SystemInstructionsNot on file [facility] SystemInstructionsNot on file documented in this encounterPro[facility] SystemInstructionsNot on file documented in this [facility]ProPick[facility] SystemInstructionsNot on file documented in [facility] Summary Purpose Family History Relationship Condition Age at Onset Recorded Date/T nida father Unknown Advance Directives Latest Code Status on File Code Status Date Activated Date Inactivated Comments Full Code 03/29/2023 12:13 PM 03/31/2023 3:01 PM Code Status History Code Status Date Activated Date Inactivated Comments Full Code 02/12/2023 6:12 PM 02/13/2023 12:01 PM Full Code 10/15/2020 1:10 AM 10/17/2020 2:44 PM Full Code 01/25/2018 10:45 AM 01/28/2018 3:36 PM Full Code 01/25/2018 10:04 AM 01/25/2018 10:45 AM Advance Directive Response Recorded Date/ Time Advance Directives No January 21, 2024 2:03pm Date Activated Date Inactivated Comments 03/29/2023 12:13 PM 03/31/2023 3:01 PM Date Activated Date Inactivated Comments 02/12/2023 6:12 PM 02/13/2023 12:01 PM Date Activated Date Inactivated Comments 10/15/2020 1:10 AM 10/17/2020 2:44 PM Date Activated Date Inactivated Comments 01/25/2018 10:45 AM 01/28/2018 3:36 PM Date Activated Date Inactivated Comments 01/25/2018 10:04 AM 01/25/2018 10:45 AM Chief Complaint and Reason for Visit Chief Complaint cough, congestion (c ovid neg) Additional Source Comments INFORMATION SOURCE (unrecogn ized section and content) DATE CREATED AUTHOR 11/13/2022 [facility] DATE CREATED AUTHOR AUTHOR'S ORGANIZ ATION 04/11/2024 [facility] EPIC Reason for Visit (unrecogniz ed section and content) Reason Comments Follow-up Reason Onset Date Comments Med Refill 03/08/2024 Reason Onset Date Comments Surgical Or Dental Clearance 04/10/2024 Reason Onset Date Comments Med Refill 04/10/2024 Reason Comments Menstrual Problem Care Teams (unrecognized sec tion and content) Automatic Drilling Machine Operator Relationship Specialty Start Date End Date Amy Sullivan APRN-CNP [address] [place] [address] PCP - General Family Medicine 05/28/20 Automatic Drilling Machine Operator Relationship Specialty Start Date End Date Amy Sullivan APRN-CNP [address] [place] [address] PCP - General Family Medicine 05/28/20 Automatic Drilling Machine Operator Relationship Specialty Start Date End Date Amy Sullivan APRN-CNP [address] [place] [address] PCP - General Family Medicine 05/28/20 Team Status: Active Member Role Status Dates Services Family Health Primary Care Provider Active Team Status: Inactive Member Role Status Dates Services Family Health Primary Care Provider Active Start: January 21, 2024 End: January 21, 2024 Fiona Smith APRN Attending Provider Active Start: January 21, 2024 End: January 21, 2024 Automatic Drilling Machine Operator Relationship Specialty Start Date End Date Amy Sullivan APRN-CNP [address] [place] [address] PCP - General Family Medicine 05/28/20 Automatic Drilling Machine Operator Relationship Specialty Start Date End Date Laurie AmyLAKSHMI Loco [address] [place] [id number] PCP - General Family Medicine 05/28/20 Automatic Drilling Machine Operator Relationship Specialty Start Date End Date LaurieDionLAKSHMI Loco [address] [place] [address] PCP - General Family Medicine 05/28/20 Automatic Drilling Machine Operator Relationship Specialty Start Date End Date Dion Sullivana IsraLAKSHMI [address] [place] [address] PCP - General Family Medicine 05/28/20 Goals (unrecognized section and content) Goals may be documented in a n alternate section FOR RECORDS PERTAINING TO PATIENTS WHO ARE OR HAVE BEEN ENROLLED IN A CHEMICAL DEPENDENCY/SUBSTANCEABUSE PROGRAM, SOME INFORMATION MAY BE OMITTED. This clinical summary was aggregated from multiple sources. Caution should be exercised in using it in the provision of clinical care. This summary normalizes information from multiple sources, and as a consequence, information in this document may materially change the coding, format and clinical context of patient data. In addition, data may be omitted in some cases. CLINICAL DECISIONS SHOULD BE BASED ON THE PRIMARY CLINICAL RECORDS. [facility] [employer], [facility]. provides no warranty or guarantee of the accuracy or completeness of information in this document.
== END 2024-04-24 08:39 | disposition home or self-care (01) ==
LOC: EC 08:38
PROVIDERS: Visit Provider Orthopaedic Surgery
DX: S62.636D Displaced fracture of distal phalanx of right little finger, subsequent encounter for fracture with routine healing (principal)
CPT/HCPCS: 73140

== ENCOUNTER 2024-06-12 12:34 | Outpatient (OUT) | payer OTHER, BC, SELFPAY ==
--- NOTE | 2024-06-12 | XR_ITS ---
The [address] [address] Patient Name: ELOY FERMIN MRN: [id number] date: 1990 Sex: F Assigned Patient Location: Current Patient Location: Accession/Order Number: [id number] Exam Date: 06/12/2024 12:35 Report Date: 06/12/2024 15:06 At the request of: LEELA GOODWIN Procedure: XR finger RT min 2V PROCEDURE: XR finger RT min 2V DATE: 06/12/2024 12:35 PM EST COMPARISONS: 04/24/2024 CLINICAL INDICATION: RIGHT FINGER PAIN FINDINGS: A surgical pin again traverses the fifth distal interphalangeal joint. Dorsal proximal avulsion fracture fifth distal phalanx again identified on lateral view. Fracture fragments appear to be in stable alignment. Based on these images there is been healing of the avulsion fracture fragment. It's difficult to well identify the fracture site due to the overlying fixation wire. XR/XR finger RT min 2V IMPRESSION: 1. Osseous structures appear to be held in good position and alignment 2. Based on lateral view, it appears there is healing at the avulsion fracture site. Electronically authenticated by: DERIK JARAMILLO Date: 06/12/2024 15:06
== END 2024-06-12 12:35 | disposition home or self-care (01) ==
LOC: EC 12:34
PROVIDERS: Visit Provider Orthopaedic Surgery
DX: S62.636D Displaced fracture of distal phalanx of right little finger, subsequent encounter for fracture with routine healing (principal)
CPT/HCPCS: 73140

== ENCOUNTER 2024-07-17 07:48 | Outpatient (OUT) | payer OTHER, BC, SELFPAY ==
--- NOTE | 2024-07-17 | XR_ITS ---
The [address] [address] Patient Name: ELOY FERMIN MRN: [id number] date: 1990 Sex: F Assigned Patient Location: Current Patient Location: Accession/Order Number: [id number] Exam Date: 07/17/2024 07:50 Report Date: 07/17/2024 09:01 At the request of: LEELA GOODWIN Procedure: XR finger RT min 2V PROCEDURE: XR finger RT min 2V COMPARISON: 06/12/2024 HISTORY: RIGHT FINGER PAIN FINDINGS: BONES:Interval removal of the 2 external pins fixing the previously identified fifth distal phalanx fracture. Stable healing of the dorsal plate avulsion fracture with bony bridging. No new fracture or dislocation SOFT TISSUES:Negative. No visible soft tissue swelling. EFFUSION:None visible. OTHER: Negative. XR/XR finger RT min 2V IMPRESSION: Interval removal of external pins with stable healing of the fifth distal phalanx fracture. Electronically authenticated by: KEISHA KENT Date: 07/17/2024 09:01
--- OUTSIDE RECORDS SUMMARY | 2024-07-17 08:01 | XMS_ITS | CCD ---
Author Organization [facility] Care Team Providers Care Case Assistant Name Role Phone CHRISTELLE ., DR BHAGAT [...] DR MCCALL LISTED Primary Care Unavaila ble ANITA HATFIELD Consulting Unavailable REQUEST, DR MCCALL LISTED Primary Care Unavaila ble CHRISTELLE ., DR BHAGAT Attending Unavailable CHRISTELLE ., DR BHAGAT Consulting Unavailable CHRISTELLE ., DR BHAGAT Admitting Unavailable Anglim PERMASTONE APPLICATOR-GUEST SERVICES AGENT, Amy A Primary Care Provider Unavailable Primary Care Provider Unavailabl e OLAYINKA BOURGEOIS Attending Unavailable CHRISTELLEOLAYINKA Attending Unavailable CHRISTELLEOLAYINKA Attending Unavailable Allergies Allergy Classification Reported Allergen(s) Allergy Type Date of Onset Reaction(s) Facility (1 source) NSAIDs Drug allergy (disorder) [facility] Repository (7 sources) Non-steroidal anti-inflammator y agent Propensity to adverse reactions to drug 2 [employer] Work Phone: (4 sources) Non-steroidal anti-inflammator y agent Drug Intolerance [...] 05/13/2023 Active cholecalciferol 0.1 mg oral capsule (15 sources) Vitamin D Start: 06-18-2022 take 1 [...] Cholecalciferol Active citalopram 20 mg oral tablet (4 sources) Serotonin Reuptake Inhibitor Start: 04-12-2023 End: [...] by mouth. 0 Active 27-1 MG tablet (4 sources) 27-1 MG tablet 1 (one) time [...] Active vitamin b12 2.5 mg oral tablet (11 sources) Vitamin B12 Start: 3 take 1 [...] 3 03/01/2023 08/03/2023 Discontinued polyethylene glycol 3350 40200 mg powder for oral solution (1 source) [...] 07-01-2006 Resolved: 04-04-2019 08-03-2023 Chronic Menstrual disorders (10 sources) Irregular menstruation, unspecified; Translations: [Menorrhagia] Onset: [...] disorders involving the immune mechanism] 04-10-2024 Episodic Residual codes; unclassified (2 sources) History of uterine scar from previous surgery; Translations: [Personal history of other specified diseases] 05-03-2024 Episodic Past or Other Problems Problem Classification [...] sources) Born by section; Translations: [Single liveborn infant, delivered by ] Onset: 01-25-2018 Resolved: 04-04-2019 08-24-2022 Episodic Mood disorders (7 sources) Mood disorders Onset: 08-03-2023 08-03-2023 Nonmalignant breast conditions (7 sources) Lump in left breast; Translations: [Unspecified lump in the left breast, unspecified quadrant] Onset: 04-18-2020 Resolved: 05-28-2020 05-28-2020 Episodic Nutritional deficiencies (8 sources) Iron deficiency; Translations: [Iron deficiency] Onset: 08-03-2023 08-03-2023 Episodic Other complications of (11 sources) Iron deficiency anemia; Translations: [Anemia complicating , unspecified trimester] Onset: 08-05-2020 Resolved: 03-30-2023 12-31-2022 Chronic Other complications of (11 sources) Complication occurring during ; Translations: [Other diseases of the blood and blood-forming organs and certain disorders involving the immune mechanism complicating , unspecified trimester] Onset: 05-28-2020 Resolved: 03-30-2023 05-28-2020 Episodic Other complications of (11 sources) RhD negative; Translations: [Other specified related conditions, unspecified trimester] Onset: 09-16-2020 Resolved: 03-30-2023 03-05-2023 Episodic Other connective tissue disease (4 sources) Diastasis recti; Translations: [Separation of muscle [...] ] Onset: 08-11-2022 Episodic Residual codes; unclassified (11 sources) Carrier of cystic fibrosis gene mutation; 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] Onset: 04-18-2020 12-03-2022 Episodic Results Test Name Value Interpretation Reference Range Facility CBC auto differentialon 07-09 Basophils (Bld) [#/Vol] 0.0 10*3/uL [facility] Basophils/100 WBC (Bld) 0.7 % [facility] Eosinophils (Bld) [#/Vol] 0.1 10*3/uL [facility] Eosinophils/100 WBC (Bld) 2.0 % [facility] Erythrocyte distribution width (RBC) [Ratio] 13.8 % 11.5 - 15.0 % [facility] Hematocrit (Bld) [Volume fraction] 41.2 % 35 - 47 % [facility] Hemoglobin (Bld) [Mass/Vol] 13.9 g/dL 11.7 - 15.5 g/dL [facility] Lymphocytes (Bld) [#/Vol] 1.7 10*3/uL [facility] Lymphocytes/100 WBC (Bld) 32.1 % [facility] MCH (RBC) [Entitic mass] 29.3 pg 27 - 34 pg [facility] MCHC (RBC) [Mass/Vol] 33.8 g/dL 32 - 36 g/dL [facility] MCV (RBC) [Entitic vol] 87 fL 80 - 100 fL [facility] Monocytes (Bld) [#/Vol] 0.6 10*3/uL [facility] Monocytes/100 WBC (Bld) 10.6 % [facility] Neutrophils (Bld) [#/Vol] 2.9 10*3/uL [facility] Neutrophils/100 WBC (Bld) 54.6 % [facility] Platelet mean volume (Bld) [Entitic vol] 8.4 fL 7 - 12 fL [facility] Platelets (Bld) [#/Vol] 244 10*3/uL [facility] RBC (Bld) [#/Vol] 4.75 10*6/uL [facility] WBC corrected for nucl RBC Auto (Bld) [#/Vol] 5.4 [facility] Cobalamin (Vitamin B12) [Mas s/Vol]on 08-03-2023 [facility] Ferritinon 08-03-2023 Ferritin [Mass/Vol] 39 ng/mL 11 - 307 ng/mL P [facility] Ferritin [Mass/Vol]on 2023 [facility] Iron and TIBCon 08-03-2023 Interpretation and review of laboratory results Abnormal [facility] Iron [Mass/Vol] 59 ug/dL 50 - 170 ug/dL [facility] Iron binding capacity [Mass/Vol] 414 ug/dL 250 - 425 ug/dL [facility] Iron saturation [Mass fraction] 14 Low [facility] Vitamin B12on 08-03-2023 Cobalamin (Vitamin B12) [Mass/Vol] 275 pg/mL 180 - 914 pg/mL [facility] HEP B SURFACE ANTIGEN SCREEN on 09-08-2022 HBsAg Screen Negative Normal Negative [facility] Comment on above: Performed By: #### A 1C #### [facility] [address] [place] [address] Dr. Eimlie Plascencia HEPATITIS C VIRUS AB W/ REFL EX QUANTon 09-08-2022 HCV AB Non-Reactive Normal Non Reactive [facility] Comment on above: Performed By: #### H CVPCRR #### [facility] [address] [place] [address] Dr. Emilie Plascencia Interpretation: Comment Normal [facility] Comment on above: Result Comment: Not infected with HCV unless early or acute infection is suspected (which may be delayed in an immunocompromised individual), or other evidence exists to indicate HCV infection. Performed By: #### H CVPCRR #### [facility] [address] [place] [address] Dr. Emilie Plascencia HIV 1 AND 2 WITH REFLEXon HIV Screen 4th Generation wRfx Non-Reactive Normal Non Reactive [facility] Comment on above: Result Comment: HIV Negative HIV-1/HIV-2 antibodies and HIV-1 p24 antigen were NOT detected. There is no laboratory evidence of HIV infection. Performed By: #### H IV12 #### [facility] [address] [place] [address] Dr. Emilie Plascencia RPR QUANTon 09-08-2022 Rapid Plasma Reagin, Quant Non-Reactive Normal NonRea<1:1 [facility] Comment on above: Result Comment: Plea se Note: This test does not meet current guidelines for screening and diagnosis of syphilis. This test is intended for following treatment response in patients being treated for syphilis infection. To screen for syphilis infection, a reflex cascade that includes both RPR and a treponema-specific assay should be utilized, such as Treponema pallidum (Syphilis) Screening [place] (961419) or Rapid Plasma Reagin (RPR) Test With Reflex to Quantitative RPR and Confirmatory Treponema pallidum Antibodies (808641). Performed By: #### A 1C #### [facility] [address] [place] [address] Dr. Emilie Plascencia RUBELLA AB IGGon 09-08-2022 Rubella Antibodies, IgG 1.82 index Normal Immune >0.[address] [facility] Comment on above: Result Comment: Non- immune <0.90 Equivocal 0.90 - 0.99 Immune >0.99 Performed By: #### R UBIGG #### [facility] [address] [place] [address] Dr. Emilie Plascencia BOX TEST SENT OUTon 09-06-19 23 SENT TO REF LAB 09/05/[address] [facility] Comment on above: Performed By: #### A 1C #### [facility] [address] [place] [address] Dr. Emilie Plascencia CBC AUTO DIFFon 09-05-2022 BASO # 0.0 103/ul Normal 0.0-0.[address] [facility] Comment on above: Performed By: #### C BC #### [facility] [address] [place] [address] Dr. Emilie Plascencia Basophils/100 WBC (Bld) 0.5 % Normal 0.2-2.[address] [facility] Comment on above: Performed By: #### C BC #### [facility] [address] [place] [address] Dr. Emilie Plascencia EO # 0.1 103/ul Normal 0.0-0.[address] [facility] Comment on above: Performed By: #### C BC #### [facility] [address] [place] [address] Dr. Emilie Plascencia Eosinophils/100 WBC (Bld) 1.2 % Normal 0.9-7.[address] [facility] Comment on above: Performed By: #### C BC #### [facility] [address] [place] [address] Dr. Emilie Plascencia Erythrocyte distribution width (RBC) [Ratio] 12.8 % Normal 11.0-15.[address] [facility] Comment on above: Performed By: #### C BC #### [facility] [address] [place] [address] Dr. Emilie Plascencia Hematocrit (Bld) [Volume fraction] 39.1 % Normal 36.0-48.[address] [facility] Comment on above: Performed By: #### C BC #### [facility] [address] [place] [address] Dr. Emilie Plascencia Hemoglobin (Bld) [Mass/Vol] 12.9 g/dL Normal 12.0-16.[address] [facility] Comment on above: Performed By: #### C BC #### [facility] [address] [place] [address] Dr. Emilie Plascencia IG # 0.04 10e3/ul Critically high 0.00-0.03 [facility] Comment on above: Performed By: #### C BC #### [facility] [address] [place] [address] Dr. Emilie Plascencia IG % 0.5 % Normal 0.0-0.[address] [facility] Comment on above: Performed By: #### C BC #### [facility] [address] [place] [address] Dr. Emilie Plascencia LYMPH # 1.9 103/ul Normal 1.2-3.8 [facility] Comment on above: Performed By: #### C BC #### [facility] [address] [place] [address] Dr. Emilie Plascencia Lymphocytes/100 WBC (Bld) 23.7 % Normal 20.5-60.[address] [facility] Comment on above: Performed By: #### C BC #### [facility] [address] [place] [address] Dr. Emilie Plascencia MANUAL DIFF REQ NO Normal [facility] Comment on above: Performed By: #### C BC #### [facility] [address] [place] [address] Dr. Emilie Plascencia MCH (RBC) [Entitic mass] 29.4 pg Normal 26.7-34.[address] [facility] Comment on above: Performed By: #### C BC #### [facility] [address] [place] [address] Dr. Emilie Plsacencia MCHC (RBC) [Mass/Vol] 33.0 g/dL Normal 29.9-35.[address] [facility] Comment on above: Performed By: #### C BC #### [facility] [address] [place] [address] Dr. Emilie Plascencia MCV (RBC) [Entitic vol] 89.1 fL Normal 81.0-99.[address] [facility] Comment on above: Performed By: #### C BC #### [facility] [address] [place] [address] Dr. Emilie Plascencia MONO # 0.5 103/ul Normal 0.3-0.[address] [facility] Comment on above: Performed By: #### C BC #### [facility] [address] [place] [address] Dr. Emilie Plascencia Monocytes/100 WBC (Bld) 6.7 % Normal 1.7-12.0 [facility] Comment on above: Performed By: #### C BC #### [facility] [address] [place] [address] Dr. Emilie Plascencia NEUT # 5.4 103/ul Normal 1.4-6.5 [facility] Comment on above: Performed By: #### C BC #### [facility] [address] [address] [address] Emilie Plascencia Neutrophils/100 WBC (Bld) 67.4 % Normal 43.0-75.[address] [facility] Comment on above: Performed By: #### C BC #### [facility] [address] [place] [address] Dr. Emilie Plascencia Platelet mean volume (Bld) [Entitic vol] 10.3 fL Normal 9.5-13.[address] [facility] Comment on above: Performed By: #### C BC #### [facility] [address] [place] [address] Dr. Emilie Plascencia PLT 284 103/ul Normal 150-[address] [facility] Comment on above: Performed By: #### C BC #### [facility] [address] [place] [address] Dr. Emilie Plascencia RBC 4.39 106/ul Normal 4.20-5.[address] [facility] Comment on above: Performed By: #### C BC #### [facility] [address] [place] [address] Dr. Emilie Plascencia WBC 8.0 103/ul Normal 4.0-11.[address] [facility] Comment on above: Performed By: #### C BC #### [facility] [address] [place] [address] Dr. Emilie Plascencia CULTURE URINEon 09-05-2022 CULTURE URINE Culture Observations : LIGHT GROWTH OF MIXED GENITAL ESCOBAR. NO POTENTIAL PATHOGENS SEEN. Normal [facility] Comment on above: Performed By: #### A 1C #### [facility] [address] [place] [address] Dr. Emilie Plascencia GLYCOHEMOGLOBIN A1Con 2022 ADA RECOMMENDATION SEE BELOW Normal [facility] Comment on above: Result Comment: ADA RECOMMENDED LIMIT 4.0 - 6.0 ADA THERAPEUTIC TARGET < 7.0 ACTION SUGGESTED > 7.0 Performed By: #### A 1C #### [facility] [address] [place] [address] Dr. Emilie Plascencia Glucose [Mass/Vol] 97 mg/dL Normal [facility] Comment on above: Performed By: #### A 1C #### [facility] [address] [place] [address] Dr. Emilie Plascencia HbA1c (Bld) [Mass fraction] 5.0 % Normal 4.5-6.[address] [facility] Comment on above: Performed By: #### A 1C #### [facility] [address] [place] [address] Dr. Emilie Plascencia TSHon 09-05-2022 TSH 0.330 uIU/mL Critically low 0.358-3.740 [facility] Comment on above: Performed By: #### T SH #### [facility] [address] [place] [address] Dr. Emilie Plascencia TYPE AND SCREENon 09-05-2022 TYPE AND SCREEN Negative Normal [facility] Comment on above: Performed By: #### A 1C #### [facility] [address] [place] [address] Dr. Emilie Plascencia US PREG TVon 09-03-2022 [...] KEISHA KENT Date: 2022-09-03 15:33 Normal [facility] CBC AUTO DIFFon 08-09-2022 BASO # 0.0 103/ul Normal 0.0-0.[address] [facility] Comment on above: Performed By: #### A 1C #### [facility] [address] [place] [address] Dr. Emilie Plascencia Basophils/100 WBC (Bld) 0.3 % Normal 0.2-2.[address] [facility] Comment on above: Performed By: #### A 1C #### [facility] [address] [place] [address] Dr. Emilie Plascencia EO # 0.1 103/ul Normal 0.0-0.[address] [facility] Comment on above: Performed By: #### A 1C #### [facility] [address] [place] [address] Dr. Emilie Plascencia Eosinophils/100 WBC (Bld) 1.4 % Normal 0.9-7.[address] [facility] Comment on above: Performed By: #### A 1C #### [facility] [address] [place] [address] Dr. Emilie Plascencia Erythrocyte distribution width (RBC) [Ratio] 12.7 % Normal 11.0-15.[address] [facility] Comment on above: Performed By: #### A 1C #### [facility] [address] [place] [address] Dr. Emilie Plascencia Hematocrit (Bld) [Volume fraction] 35.7 % Critically low 36.0-48.[address] [facility] Comment on above: Performed By: #### A 1C #### [facility] [address] [place] [address] Dr. Emilie Plascencia Hemoglobin (Bld) [Mass/Vol] 12.0 g/dL Normal 12.0-16.[address] [facility] Comment on above: Performed By: #### A 1C #### [facility] [address] [place] [address] Dr. Emilie Plascencia IG # 0.01 10e3/ul Normal 0.00-0.03 [facility] Comment on above: Performed By: #### A 1C #### [facility] [address] [place] [address] Dr. Emilie Plascencia IG % 0.2 % Normal 0.0-0.5 [facility] Comment on above: Performed By: #### A 1C #### [facility] [address] [place] [address] Dr. Emilie Plascencia LYMPH # 1.7 103/ul Normal 1.2-3.8 [facility] Comment on above: Performed By: #### A 1C #### [facility] [address] [place] [address] Dr. Emilie Plascencia Lymphocytes/100 WBC (Bld) 26.6 % Normal 20.5-60.[address] [facility] Comment on above: Performed By: #### A 1C #### [facility] [address] [place] [address] Dr. Emilie Plascencia MANUAL DIFF REQ NO Normal [facility] Comment on above: Performed By: #### A 1C #### [facility] [address] [place] [address] Dr. Emilie Plascencia MCH (RBC) [Entitic mass] 29.3 pg Normal 26.7-34.[address] [facility] Comment on above: Performed By: #### A 1C #### [facility] [address] [place] [address] Dr. Emilie Plascencia MCHC (RBC) [Mass/Vol] 33.6 g/dL Normal 29.9-35.2 [facility] Comment on above: Performed By: #### A 1C #### [facility] [address] [place] [address] Dr. Emilie Plascencia MCV (RBC) [Entitic vol] 87.3 fL Normal 81.0-99.[address] [facility] Comment on above: Performed By: #### A 1C #### [facility] [address] [place] [address] Dr. Emilie Plascencia MONO # 0.5 103/ul Normal 0.3-0.8 [facility] Comment on above: Performed By: #### A 1C #### [facility] [address] [place] [address] Dr. Emilie Plascencia Monocytes/100 WBC (Bld) 6.9 % Normal 1.7-12.0 [facility] Comment on above: Performed By: #### A 1C #### [facility] [address] [place] [address] Dr. Emilie Plascencia NEUT # 4.2 103/ul Normal 1.4-6.5 [facility] Comment on above: Performed By: #### A 1C #### [facility] [address] [place] [address] Dr. Emilie Plascencia Neutrophils/100 WBC (Bld) 64.6 % Normal 43.0-75.[address] [facility] Comment on above: Performed By: #### A 1C #### [facility] [address] [place] [address] Dr. Emilie Plascencia Platelet mean volume (Bld) [Entitic vol] 9.7 fL Normal 9.5-13.[address] [facility] Comment on above: Performed By: #### A 1C #### [facility] [address] [place] [address] Dr. Emilie Plascencia PLT 256 103/ul Normal 150-450 [facility] Comment on above: Performed By: #### A 1C #### [facility] [address] [place] [address] Dr. Emilie Plascencia RBC 4.09 106/ul Critically low 4.20-5.40 [facility] Comment on above: Performed By: #### A 1C #### [facility] [address] [place] [address] Dr. Emilie Plascencia WBC 6.5 103/ul Normal 4.0-11.[address] [facility] Comment on above: Performed By: #### A 1C #### [facility] [address] [place] [address] Dr. Emilie Plascencia ER URINE PROFILEon 3 Bilirubin Ql (U) Negative Normal NEGATIVE [facility] Comment on above: Performed By: #### E RUR #### [facility] [address] [place] [address] Dr. Emilie Plascencia Clarity (U) CLEAR Normal CLEAR [facility] Comment on above: Performed By: #### E RUR #### [facility] [address] [place] [address] Dr. Emilie Plascencia Color (U) LT. YELLOW Normal YELLOW [facility] Comment on above: Performed By: #### E RUR #### [facility] [address] [place] [address] Dr. Emilie Plascencia ERUD A micrscopic examination will be performed if indicated. Normal [facility] Comment on above: Performed By: #### E RUR #### [facility] [address] [place] [address] Dr. Emilie Plascencia Glucose Ql (U) Negative Normal NEGATIVE [facility] Comment on above: Performed By: #### E RUR #### [facility] [address] [place] [address] Dr. Emilie Plascencia Hemoglobin Ql (U) Negative Normal NEGATIVE [facility] Comment on above: Performed By: #### E RUR #### [facility] [address] [place] [address] Dr. Emilie Plascencia Ketones Ql (U) Negative Normal NEGATIVE [facility] Comment on above: Performed By: #### E RUR #### [facility] [address] [place] [address] Dr. Emilie Plascencia LEUKOCYTES Negative Normal NEGATIVE [facility] Comment on above: Performed By: #### E RUR #### [facility] [address] [place] [address] Dr. Emilie Plascenica Nitrite Ql (U) Negative Normal NEGATIVE [facility] Comment on above: Performed By: #### E RUR #### [facility] [address] [place] [address] Dr. Emilie Plascencia pH (U) 6.0 [pH] Normal 5-[address] [facility] Comment on above: Performed By: #### E RUR #### [facility] [address] [place] [address] Dr. Emilie Plascencia SPEC GRAVITY 1.010 Normal 1.005-<=1.025 [facility] Comment on above: Performed By: #### E RUR #### [facility] [address] [place] [address] Dr. Emilie Plascencia UA PROTEIN Negative Normal NEGATIVE/ TRACE [facility] Comment on above: Performed By: #### E RUR #### [facility] [address] [place] [address] Dr. Emilie Plascencia UR MICRO IND NOT INDICATED Normal [facility] Comment on above: Performed By: #### E RUR #### [facility] [address] [place] [address] Dr. Emilie Plascencia Urobilinogen Qn (U) 0.2 {Barbara'U}/dL Normal 0.2 - 1. [address] [facility] Comment on above: Performed By: #### E RUR #### [facility] [address] [place] [address] Dr. Emilie Plascencia PREG QUANT HCGon 08-09-2022 HCG QUANT 14219 mIU/mL Normal [facility] Comment on above: Performed By: #### P REGQNT #### [facility] [address] [place] [address] Dr. Emilie Plascencia HCG RANGE SEE BELOW Normal [facility] Comment on above: Result Comment: 5-50 0.2-1 WEEK 50-500 1-2 WEEKS 100-5,000 2-3 WEEKS 500-10,000 3-4 WEEKS 1,000-50,000 4-5 WEEKS 10,000-100,000 5-6 WEEKS 15,000-200,000 6-8 WEEKS 10,000-100,000 2-3 MONTHS Performed By: #### P REGQNT #### [facility] [address] [place] [address] Dr. Emilie Plascencia PROF CHEM 8 (BAS METB)on Anion gap [Moles/Vol] 12.3 mmol/L Normal [facility] Comment on above: Performed By: #### A 1C #### [facility] [address] [place] [address] Dr. Emilie Plascencia Calcium [Mass/Vol] 8.9 mg/dL Normal 8.5-10.1 [facility] Comment on above: Performed By: #### A 1C #### [facility] [address] [place] [address] Dr. Emilie Plascencia Chloride [Moles/Vol] 107 mmol/L Normal 98-[address] [facility] Comment on above: Performed By: #### A 1C #### [facility] [address] [place] [address] Dr. Emilie Plascencia CO2 [Moles/Vol] 26.6 mmol/L Normal 21.0-32.0 [facility] Comment on above: Performed By: #### A 1C #### [facility] [address] [address] [address] Emilie Plascencia Creatinine [Mass/Vol] 0.49 mg/dL Critically low 0.55-1.[address] [facility] Comment on above: Performed By: #### A 1C #### [facility] [address] [place] [address] Dr. Emilie Plascencia EGFR-AF SERBIAN >60 Normal >=60 [facility] Comment on above: Performed By: #### A 1C #### [facility] [address] [address] [address] Emilie Plascencia EGFR-NON AF SERBIAN >60 Normal >=[address] [facility] Comment on above: Performed By: #### A 1C #### [facility] [address] [place] [address] Dr. Emilie Plascencia Glucose [Mass/Vol] 93 mg/dL Normal 74-106 [facility] Comment on above: Performed By: #### A 1C #### [facility] [address] [place] [address] Dr. Emilie Plascencia Potassium [Moles/Vol] 3.9 mmol/L Normal 3.5-5.[address] [facility] Comment on above: Performed By: #### A 1C #### [facility] [address] [place] [address] Dr. Emilie Plascencia Sodium [Moles/Vol] 142 mmol/L Normal 136-145 [facility] Comment on above: Performed By: #### A 1C #### [facility] [address] [place] [address] Dr. Emilie Plascencia Urea nitrogen [Mass/Vol] 10.0 mg/dL Normal 7.0-18.0 [facility] Comment on above: Performed By: #### A 1C #### [facility] [address] [place] [address] Dr. Emilie Plascencia Urea nitrogen/Creatinine [Mass ratio] 20.4 mg/mg Normal [facility] Comment on above: Performed By: #### A 1C #### [facility] [address] [place] [address] Dr. Emilie Plascencia US PREG TVon 08-09-2022 US PREG TV EXAM: US PREG TV INDICATION: Abnormal vaginal bleeding. COMPARISON: None for this . TECHNIQUE: Transvaginal pelvic ultrasound was performed. FINDINGS: Single intrauterine . Mean sac diameter: 1.3 cm, 5 weeks, 3 days [place]-rump length: 0.3 cm, 5 weeks, 6 days [...] delivery date is 04/05/2023. Electronically authenticated by: ANITA HATFIELD Date: 2022-08-09 09:59 Normal [facility] PREG QUANT HCGon 06-05-2022 HCG QUANT <1 Normal [facility] Comment on above: Performed By: #### P REGQNT #### [facility] [address] [place] [address] Dr. Emilie Plascencia HCG RANGE SEE BELOW Normal [facility] Comment on above: Result Comment: 5-50 0.2-1 WEEK 50-500 1-2 WEEKS 100-5,000 2-3 WEEKS 500-10,000 3-4 WEEKS 1,000-50,000 4-5 WEEKS 10,000-100,000 5-6 WEEKS 15,000-200,000 6-8 WEEKS 10,000-100,000 2-3 MONTHS Performed By: #### P REGQNT #### [facility] [address] [place] [address] Dr. Emilie Plascencia PREG QUANT HCGon 05-27-2022 HCG QUANT 14 mIU/mL Normal [facility] Comment on above: Performed By: #### P REGQNT #### [facility] [address] [place] [address] Dr. Emilie Plascencia HCG RANGE SEE BELOW Normal [facility] Comment on above: Result Comment: 5-50 0.2-1 WEEK 50-500 1-2 WEEKS 100-5,000 2-3 WEEKS 500-10,000 3-4 WEEKS 1,000-50,000 4-5 WEEKS 10,000-100,000 5-6 WEEKS 15,000-200,000 6-8 WEEKS 10,000-100,000 2-3 MONTHS Performed By: #### P REGQNT #### [facility] [address] [place] [address] Dr. Emilie Plascencia PREG QUANT HCGon 05-25-2022 HCG QUANT 17 mIU/mL Normal [facility] Comment on above: Performed By: #### A 1C #### [facility] [address] [place] [address] Dr. Emilie Plascencia HCG RANGE SEE BELOW Normal [facility] Comment on above: Result Comment: 5-50 0.2-1 WEEK 50-500 1-2 WEEKS 100-5,000 2-3 WEEKS 500-10,000 3-4 WEEKS 1,000-50,000 4-5 WEEKS 10,000-100,000 5-6 WEEKS 15,000-200,000 6-8 WEEKS 10,000-100,000 2-3 MONTHS Performed By: #### A 1C #### [facility] [address] [place] [address] Dr. Emilie Plascencia Vital Signs Date Time Vital Sign Value Performing Clinician Facility 04-10-2024 16:32-0500 Body height 157.5 cm [facility] Work Phone: [facility] 04-10-2024 16:32-0500 Body mass index (BMI) [Ratio] 33.65 kg/m2 [facility] Work Phone: [facility] 04-10-2024 16:32-0500 Body weight 83.46 kg [facility] Work Phone: [facility] 04-10-2024 16:32-0500 Diastolic blood pressure 70 mm[Hg] [facility] Work Phone: [facility] 04-10-2024 16:32-0500 Systolic blood pressure 118 mm[Hg] Olayinka Bourgeois DO Work Phone: [facility] 01-21-2024 14:12-0400 Body height 157.48 cm [facility] 01-21-2024 14:12-0400 Body mass index (BMI) [Ratio] 33.3 kg/m2 [facility] 01-21-2024 14:12-0400 Body temperature 98.9 [degF] [facility] 01-21-2024 14:12-0400 Body weight 82.55 kg [facility] 01-21-2024 14:12-0400 Diastolic blood pressure 81 mm[Hg] [facility] 01-21-2024 14:12-0400 Heart rate 76 /min [facility] 01-21-2024 14:12-0400 Respiratory rate 16 /min [facility] 01-21-2024 14:12-0400 SaO2% (BldA) [Mass fraction] 97 % [facility] 01-21-2024 14:12-0400 Systolic blood pressure 118 mm[Hg] [facility] 08-03-2023 09:35-0500 Body height 157.5 cm Pineda Rojas MD Work Phone: [facility] 08-03-2023 09:35-0500 Body mass index (BMI) [Ratio] 32.02 kg/m2 Pineda Rojas MD Work Phone: [facility] 08-03-2023 09:35-0500 Body weight 79.4 kg Pineda Rojas MD Work Phone: [facility] 08-03-2023 09:35-0500 Diastolic blood pressure 66 mm[Hg] Pineda Rojas MD Work Phone: [facility] 08-03-2023 09:35-0500 Heart rate 78 /min Pineda Rojas MD Work Phone: [facility] 08-03-2023 09:35-0500 Systolic blood pressure 138 mm[Hg] Pineda Rojas MD Work Phone: [facility] Encounters Encounter Date Encounter Type Care Provider Facility Start: 05-03-2024 End: 05-03-2024 Phys/qhp telephone evaluation 5-10 min Olayinka Christelle DO Work Phone: [facility] Comment on above: History of uterine s car due to previous surgery Start: 04-10-2024 End: 04-10-2024 Office outpatient visit 15 minutes Olayinka Christelle DO Work Phone: [facility] Comment on above: H/O section ; Nausea; History of anemia; PCOS (polycystic ovarian syndrome) Start: 04-10-2024 End: 04-10-2024 ambulatory OLAYINKA CHRISTELLE Not Available Start: 04-10-2024 End: 04-10-2024 Bamboo flowsheet Olayinka Christelle DO Work Phone: [facility] Start: 04-10-2024 End: 04-10-2024 Bamboo flowsheet Olayinka Christelle DO Work Phone: [facility] Start: 04-10-2024 End: 04-10-2024 Telephone encounter Chelo Ness RN [facility] Comment on above: Surgical Or Dental C learance Type 1 von Willebran d disease ([facility]-HCC); Menorrhagia with regular cycle Start: 03-08-2024 End: 03-08-2024 Telephone encounter Chelo Ness RN [facility] Comment on above: Med Refill Start: 01-21-2024 End: 01-21-2024 ambulatory [facility] Work Phone: Start: 01-21-2024 End: 01-21-2024 Patient encounter procedure [facility] Physician [facility] Work Phone: Start: 11-08-2023 End: 11-08-2023 ambulatory OLAYINKA CHRISTELLE Not Available Start: 08-24-2023 Documentation procedure [facility] Start: 08-03-2023 Orders Only Pineda Rojas MD Work Phone: [facility] Comment on above: Iron deficiency ([facility] korina Dx); Iron malabsorption; Type 1 von Willebrand disease ([facility]) Start: 08-03-2023 End: 08-03-2023 Office outpatient visit 15 minutes Pineda Rojas MD Work Phone: [facility] Comment on above: Type 1 von Willebran d disease ([facility]) (Primary Dx); History of iron deficiency anemia Start: 05-10-2023 End: 05-10-2023 ambulatory OLAYINKA BOURGEOIS Not Available Start: 11-04-2022 End: 11-04-[address] OLAYINKA BOURGEOIS . Facility: Start: 09-05-2022 End: 09-06-2022 ambulatory NONE LISTED REQUEST Facility: Start: 09-03-2022 End: 09-04-2022 ambulatory NONE LISTED REQUEST Facility: Start: 08-09-2022 End: 08-09-2022 ambulatory BALDEMAR FLETCHER Facility: Start: 05-25-2022 End: 06-06-[address] [...] Td Vaccines (5 - Td or Tdap) [facility] Start: 11-04-2025 Screening for malign ant neoplasm of cervix Pap Smear [facility] Start: 10-18-2024 End: 10-18-2024 Patient encounter procedure 10/18/2024 3:00 PM EDT Office Visit [facility] [address] [facility] [place] [address] Olayinka Bourgeois, DO [address] [place] [address] [facility] Start: 08-03-2024 Adult BMI Screening Adult BMI Screen ing [facility] Start: 08-03-2024 Depression Screening Depression Scre ening [facility] Start: 08-03-2024 Tobacco Screening Tobacco Screening [facility] Start: 05-02-2024 End: 05-02-2024 Patient encounter procedure 05/02/2024 8:00 AM EST Office Visit [facility] [address] [facility] [place] [place] [id number] Olayinka Bourgeois, DO [address] [place] [address] [facility] Start: 04-10-2024 End: 04-10-2024 Patient encounter procedure 04/10/2024 3:20 PM EST Consult [facility] [address] [place] [place] [address] Olayinka Bourgeois, DO [address] [place] [address] Arrived [facility] Comment on above: Arrived Start: 04-10-2024 End: 04-10-2025 CBC W Auto Differential panel - Blood CBC and differential Lab Routine History of anemia PCOS (polycystic ovarian syndrome) Expected: 04/10/2024 (Approximate), Expires: 04/10/2025 [facility] Comment on above: Expected: 04/10/2024 (Approximate), Expires: 04/10/2025 Start: 04-10-2024 End: 04-10-2025 DHEA DHEA Lab Routine History of anemia PCOS (polycystic ovarian syndrome) Expected: 04/10/2024, Expires: 04/10/2025 [facility] Comment on above: Expected: 04/10/2024 , Expires: 04/10/2025 Start: 04-10-2024 End: 04-10-2025 DHEA-sulfate DHEA-sulfate Lab Routine History of anemia PCOS (polycystic ovarian syndrome) Expected: 04/10/2024 (Approximate), Expires: 04/10/2025 [facility] Comment on above: Expected: 04/10/2024 (Approximate), Expires: 04/10/2025 Start: 04-10-2024 End: 04-10-2025 Follicle stimulating hormone Follicle stimulating hormone Lab Routine History of anemia PCOS (polycystic ovarian syndrome) Expected: 04/10/2024 (Approximate), Expires: 04/10/2025 [facility] Comment on above: Expected: 04/10/2024 (Approximate), Expires: 04/10/2025 Start: 04-10-2024 End: 04-10-2025 hCG, quantitative, hCG, quantitative, Lab Routine History of anemia PCOS (polycystic ovarian syndrome) Expected: 04/10/2024 (Approximate), Expires: 04/10/2025 [facility] Work Phone: Comment on above: Expected: 04/10/2024 (Approximate), Expires: 04/10/2025 Start: 04-10-2024 End: 04-10-2025 Hemoglobin A1c/Hemoglobin.total in Blood Hemoglobin A1c Lab Routine History of anemia PCOS (polycystic ovarian syndrome) Expected: 04/10/2024 (Approximate), Expires: 04/10/2025 [facility] Comment on above: Expected: 04/10/2024 (Approximate), Expires: 04/10/2025 Start: 04-10-2024 End: 04-10-2025 Luteinizing hormone Luteinizing hormone Lab Routine History of anemia PCOS (polycystic ovarian syndrome) Expected: 04/10/2024 (Approximate), Expires: 04/10/2025 [facility] Comment on above: Expected: 04/10/2024 (Approximate), Expires: 04/10/2025 Start: 04-10-2024 End: 04-10-2025 Thyrotropin [Units/volume] in Serum or Plasma TSH Lab Routine History of anemia PCOS (polycystic ovarian syndrome) Expected: 04/10/2024 (Approximate), Expires: 04/10/2025 [facility] Comment on above: Expected: 04/10/2024 (Approximate), Expires: 04/10/2025 Start: 04-10-2024 End: 04-10-2025 Thyroxine (T4) free [Mass/volume] in Serum or Plasma T4, free Lab Routine History of anemia PCOS (polycystic ovarian syndrome) Expected: 04/10/2024 (Approximate), Expires: 04/10/2025 [facility] Comment on above: Expected: 04/10/2024 (Approximate), Expires: 04/10/2025 Start: 04-10-2024 End: 04-10-2025 US for US PELVIS-TRANSVAG IF INDICATED Imaging Routine History of anemia PCOS (polycystic ovarian syndrome) Expected: 04/10/2024 (Approximate), Expires: 04/10/2025 [facility] Comment on above: Expected: 04/10/2024 (Approximate), Expires: 04/10/2025 Start: 02-06-2024 Influenza vaccination Influenza Vacc ine [facility] Start: 10-20-2009 Adult BMI Follow Up Plan Adult BMI Follow Up Plan [facility] Immunizations Immunization Date Immunization Notes Care Provider Flako starks 03-30-2023 RHO(D) immune globul in- IV or IM Pineda Rojas MD Work Phone: [facility] 02-12-2023 influenza, injectabl e, quadrivalent, preservative free Pineda Rojas MD Work Phone: [facility] 02-12-2023 RHO(D) immune globul in- IV or IM Pineda Rojas MD Work Phone: [facility] 02-12-2023 influenza virus vacc ine, unspecified formulation Chelo Ness RN [facility] 12-31-2022 RHO(D) immune globul in- IV or IM Pineda Rojas MD Work Phone: [facility] 12-31-2022 tetanus toxoid, redu sami diphtheria toxoid, and acellular pertussis vaccine, adsorbed Pineda Rojas MD Work Phone: [facility] 10-16-2020 RHO(D) immune globul in- IV or IM Pineda Rojas MD Work Phone: [facility] 09-30-2020 tetanus toxoid, redu sami diphtheria toxoid, and acellular pertussis vaccine, adsorbed Pineda Rojas MD Work Phone: [facility] 09-17-2020 influenza, injectabl e, quadrivalent, preservative free Pineda Rojas MD Work Phone: [facility] 01-27-2018 RHO(D) immune globul in- IV or IM Pineda Rojas MD Work Phone: [facility] 01-27-2018 tetanus toxoid, redu sami diphtheria toxoid, and acellular pertussis vaccine, adsorbed Pineda Rojas MD Work Phone: [facility] 12-30-2016 RHO(D) immune globul in- IV or IM Pineda Rojas MD Work Phone: [facility] 08-14-2016 influenza, injectabl e, quadrivalent, preservative free Pineda Rojas MD Work Phone: [facility] 05-04-2007 human papilloma viru s vaccine, quadrivalent Pineda Rojas MD Work Phone: [facility] 05-04-2007 meningococcal polysaccharide (groups A, C, Y and W-135) diphtheria toxoid conjugate vaccine (MCV4P) Pineda Rojas MD Work Phone: [facility] 12-23-2005 hepatitis A vaccine, adult dosage Pineda Rojas MD Work Phone: [facility] 12-23-2005 hepatitis A vaccine, pediatric/adolescent dosage, 2 dose schedule Pineda Rojas MD Work Phone: [facility] 12-23-2005 hepatitis B vaccine, adult dosage Pineda Rojas MD Work Phone: [facility] 2005 hepatitis B vaccine, adult dosage Pineda Rojas MD Work Phone: [facility] 2005 hepatitis B vaccine, pediatric or pediatric/adolescent dosage Pineda Rojas MD Work Phone: [facility] 2005 tetanus toxoid, redu sami diphtheria toxoid, and acellular pertussis vaccine, adsorbed Pineda Rojas MD Work Phone: [facility] 2005 varicella virus vaccine Pineda Rojas MD Work Phone: [facility] Payers Date Payer Category Payer Private Health Insurance [id number] 2023 Managed Care Other (unspecified) [facility] [id number] 2023 Private Health Insurance [id number] 2020 [facility] [id number] 5 2020 [employer] Blue [employer]ie ld Managed Care - Other [employer] [id number] 2020 Unknown [employer] BCBS OUT OF STATE PPO/TRUST [id number] 2020-Present [phone] [address] [place] [address] [id number] 1991 Unknown [id number] 1991 Unknown [id number] 1991 Unknown [id number] 1991 Unknown [id number] 1991 Unknown [id number] 1991 Unknown [id number] 1991 Unknown [id number] 1991 Unknown [id number] 1959 Unknown [id number] 1959 Unknown [id number] Worker's Compensation [facility] [employer] [id number] Social History Date Type Detail Facility Start: 12-31-2022 End: 04-10-2024 Tobacco smoking status NHIS Never smoked tobacco [facility] Start: 12-31-2022 End: 04-10-2024 Tobacco use and exposure Smokeless tobacco non-user [facility] Start: 08-03-2023 Alcohol intake 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 (finding) [facility] Start: 08-03-2023 End: 04-10-2024 Alcohol intake [facility] Start: 08-03-2023 End: 04-10-2024 Tobacco use panel [facility] How hard is it for you to pay for the very basics like food, housing, medical care, and heating Hard [facility] Adolescent depressio n screening assessment 0 [facility] Start: 07-29-2020 Education 15 [facility] Start: 1990 Sex Assigned At Female P [facility] Start: 05-15-2021 Gender identity Identifies as female gender (finding) [facility] Start: 01-08-2015 Sex Female (finding) [facility] Start: 11-08-2023 End: 04-10-2024 Alcoholic beverage intake Lifetime non-drinker (finding) [facility] NEGATED: Highlighted rowStart: NINF History of tobacco use Passive smoker [facility] Clinical Notes 08-03-2023 to 05-03-2024 Olayinka Bourgeois DO - 05/03/2024 8:10 AM Aamir Kemp - 04/10/2024 3:20 PM ESTTelephone Encounter - Chelo Ness RN - 04/10/2024 2:23 PM Hellen Garcia RN - 08/24/2023 12:17 PM EDT Note Date & Type Note Facility 05-03-2024 History of Present illness Narrative Reason for Appointment: Patient ID: Marylin Fermin is a 33 y.o. female who presents for No chief complaint on file. Patient presents today via telephone call for a telehealth appointment. Patients Phone #: [phone] (mobile) Current Medications: has a current medication list which includes the following prescription(s): cholecalciferol, cholecalciferol, citalopram, cyanocobalamin, and . Medical History: Active Ambulatory Problems Diagnosis Date Noted Missed period 11/03/2022 Cystic fibrosis carrier 04/18/2020 Type 1 von Willebrand disease ([facility]) 07/01/2006 Diastasis recti 11/08/2023 H/O section 11/08/2023 Resolved Ambulatory Problems Diagnosis Date Noted Hematologic disorder in mother affecting 05/28/2020 Iron deficiency anemia of mother during 08/05/2020 Rh negative state in antepartum period, third trimester 09/16/2020 Past Medical History: Diagnosis Date CF (cystic fibrosis) ([facility]) Gestational HTN 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 Social History Tobacco Use Smoking status: Never Smokeless tobacco: Never Substance Use Topics Alcohol use: Never Drug use: Never Past Surgical History: Procedure Laterality Date BILATERAL SALPINGOOPHORECTOMY Bilateral 03/30/2023 BREAST BIOPSY SECTION, LOW TRANSVERSE 12/2016 SECTION, LOW TRANSVERSE 01/2018 SECTION, LOW TRANSVERSE 03/29/2023 with tubal ligation SECTION, LOW TRANSVERSE 03/30/2023 TUBAL LIGATION 03/29/2023 Allergies Allergen Reactions Nsaids Clotting disorder Vitals: Estimated body mass index is 33.65 kg/m as calculated from the following: Height as of 04/10/24: 5' 2 . Weight as of 04/10/24: 184 lb. BP: Patient's last menstrual period was 03/08/2024. Assessment/Plan Encounter Diagnosis Name Primary? History of uterine scar due to previous surgery Pt was called to discuss ultrasound for uterine scar. Pt states no labs and ultrasound have been obtained as of yet. Pt states plan of care moving forward is still Today's telehealth visit consisted of spending 5 minutes talking to patient on the phone. Documented by Anita De La Fuente LPN on behalf of: Olayinka Bourgeois DO documented in this encounter [facility] 04-10-2024 History of Present illness Narrative Reason [...] carrier 04/18/2020 Type 1 von Willebrand disease (CMS/HCC) 07/01/2006 Diastasis recti 11/08/2023 H/O section 11/08/2023 Resolved Ambulatory Problems Diagnosis Date Noted Hematologic disorder in mother affecting 05/28/2020 Iron deficiency anemia of mother during 08/05/2020 Rh negative state in antepartum period, third trimester 09/16/2020 Past Medical History: Diagnosis Date CF (cystic fibrosis) (CMS/[facility]) Gestational HTN 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CMS/HCC) Miscarriage Need for rhogam due to Rh negative mother Von Willebrand disease (CMS/HCC) HISTORY PAST MEDICAL HISTORY SOCIAL HISTORY Past Medical History: Diagnosis Date CF (cystic fibrosis) (CMS/HCC) Gestational HTN 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CMS/HCC) Miscarriage Need for rhogam due to Rh negative mother Von Willebrand disease ([facility]/HCC) Social History Tobacco Use Smoking status: Never [...] Olayinka Bourgeois DO documented in this encounter [facility] 04-10-2024 Miscellaneous Notes Pre/ postop TXA documented in this encounter [facility] 04-10-2024 Telephone encounter Note Pre/ postop TXA [facility] 04-10-2024 Miscellaneous Notes Incoming patient message regarding [...] pended to Dr. Rojas. Clearance faxed via [id number]. documented in this encounter [facility] 04-10-2024 Telephone encounter Note Incoming patient message regarding surgery r/t a broken finger tomorrow, 04/11/24. Per Dr. Rojas's plan: TXA TID x 5 days, first dose being 1-2 hours prior to sx. Fax number for surgeon per patient message: LVM to patient to review plan and confirm pharmacy. Also to verify surgeon we are to fax clearance to. [facility] 04-10-2024 Telephone encounter Note PC from patient, confirmed pharmacy and reviewed plan. Patient verbalized understanding. Script pended to Dr. Rojas. Clearance faxed via [id number]. [facility] 03-08-2024 Miscellaneous Notes PC to patient to confirm pharmacy for menses TXA refill. [facility] [place] is preferred [facility]. Updated in [email or web address]. documented in this encounter [facility] 03-08-2024 Telephone encounter Note PC to patient to confirm pharmacy for menses TXA refill. [facility] 03-08-2024 Telephone encounter Note [facility] [place] [facility]. Updated in [email or web address]. [facility] 08-24-2023 History of Present illness Narrative Called and spoke with patient to scheduled iv iron on 08/18/23. She said she doesn't know if she can get off work and will call back to schedule. documented in this encounter [facility] 08-03-2023 History of Present illness Narrative Pt is here for 6 month follow up. Pt denies any bleeding issues. She reports being very dizzy the past couple of days and is having some neck pain. She is taking oral iron tablets and will need a refill. She has extreme fatigue. Images from the original note were not included. [facility] BENIGN HEMATOLOGY PEDIATRIC THROMBOPHILIA Dr.Dagmar Di Rojas OUTPATIENT FOLLOW-UP NOTE: [facility] Patient ID: Marylin Fermin, 32 y.o. female PCP: Amy Sullivan APRN-NANCY : 1990 CHIEF COMPLAINT: Chief Complaint Patient presents with Follow-up HISTORY OF PRESENT ILLNESS: Marylin Fermin is a 32 y.o. female with history of type 1 von willebrand disease who presents today for follow-up at the [facility] due to recent . [...] 1 von Willebrand's disease. This was diagnosed [facility] in 2006 (age 16) when she developed [...] - 1 unit platelets prior per previous eligibility analyst-unclear indication 10/15/2020 Surgery Delivery of baby girl. No treatment given. 03/29/2023 Surgery delivery of baby boy. No treatment needed. REVIEW OF SYSTEMS: Complete 10-point ROS is negative except as mentioned in HPI. PAST MEDICAL HISTORY: Past Medical History: Diagnosis Date Anemia History of gestational hypertension Lump of left breast 04/18/2020 Type 1 von Willebrand disease ([facility]) PAST SURGICAL HISTORY: Past Surgical History: Procedure Laterality Date N/A 12/29/2016 Performed by Mle Luz MD at [facility] OR REPEAT N/A 10/15/2020 Performed by Vinicius Rosario MD at [facility] OR REPEAT N/A 01/25/2018 Performed by Ariel Ford MD at [facility] OR REPEAT TUBAL LIGATION N/A 03/29/2023 Performed by Keisha Baugh MD at [facility] OR INCISION AND DRAINAGE 03/30/2023 [...] father were negative. SOCIAL HISTORY: Lives in [place], [place] with her family. 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 female with history of type 1 von willebrand disease who presents today for follow-up at the [facility] due to recent . 1. Type 1 von willebrand disease: Diagnosed based on low VWD levels (30% for Ristocetin at [facility]) in the setting of type A blood in 2006 (age 16). Multimers showed decrease in all multimers at that time. The patient was apparently diagnosed with type 1 VWD. Repeat VWD labs in 04/2023 showed antigen of 56, activity of 49, factor 8 of 69, and normal multimers. - Stable currently. - Anticipatory guidance given. - Notify [facility] of any upcoming surgeries or procedures. - No current menstrual bleeding (as ), but has used TXA PRN for menorrhagia in the past. - Our psychologist social met with the patient today during this [...] year and PRN. Pineda Rojas MD Adult Manager Welding [facility] Pager: [phone] Pt is a 32 year old female with vWD, here today with her , and 3 children Agreeable to meet with sw, family remained in the room Marylin resides in the [facility] with her Francisco (not affected), daughter Maryan 2 (vWD) and son Josiah (vWD) brother Ventura (not tested). There are no major bleeding concerns, she is currently still breast feeding Ventura, and has not had a period. There are no upcoming surgeries. 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 No major financial concerns reported today, family seems able to meet basic needs of the home. Insurance: family has commercial insurance. Family has submitted financial documents for [facility] approval, and have been approved through [...] psychosocial issues identified, sw encouraged particpation with [employer] activities, Camp, [place], [place] [employer], etc. Parents will consider camp for Josiah Much support provided Isidro MONCADAW documented in this encounter [facility] Evaluation note Diagnosis Type 1 von Willebrand disease (CMS-HCC)- Primary Von Willebrand's disease History of iron deficiency anemia Personal history of diseases of blood and blood-forming organs documented in this encounter [facility] Diagnosis Iron deficiency- Primary Disorders of iron metabolism Iron malabsorption Other specified intestinal malabsorption Type 1 von Willebrand disease (CMS-HCC) Von Willebrand's disease documented in this encounter [facility] noteNo assessment information available [facility] Work Phone: Evaluation note* Diagnosis Type 1 von Willebrand disease (CMS-HCC) Von Willebrand's disease Menorrhagia with regular cycle documented in [facility] Diagnosis H/O section Nausea Nausea alone History of anemia Personal history of diseases of blood and blood-forming organs PCOS (polycystic ovarian syndrome) Polycystic ovaries [facility] Diagnosis History of uterine scar due to previous surgery documented in this encounter [facility]* Attachments The following attachments cannot be sent through Care Everywhere. * Taking care of bruises (Tamazight) documented in this encounterProMediwy Health SystemInstructionsNot on file documented in this [facility] DWNLD SystemInstructionsNot on file documented in this encounter[facility]Mediwy DWNLD SystemInstructionsNot on file documented in this [facility] DWNLD SystemInstructionsNot on file documented in this [facility] DW[facility] SystemInstructionsNot on file documented in this [facility] DW[facility] SystemInstructionsNot on file documented in this [facility] Summary Purpose Family History Relationship Condition [...] and content) DATE CREATED AUTHOR 11/13/[address] pital DATE CREATED AUTHOR AUTHOR'S ORGANIZ ATION 04/11/2024 [facility] Specialists EPIC Reason for Visit (unrecogniz ed section and content) Reason Comments Follow-up Reason Onset Date Comments Med Refill 03/08/2024 Reason Onset Date Comments Surgical Or Dental Clearance 04/10/2024 Reason Onset Date Comments Med Refill 04/10/2024 Reason Comments Menstrual Problem Care Teams (unrecognized sec tion and content) Case Assistant Relationship Specialty Start Date End Date Amy Sullivan APRN-GUEST SERVICES AGENT [address] [place] [place] [address] PCP - General Family Medicine 05/28/20 Case Assistant Relationship Specialty Start Date End Date Amy Sullivan APRN-GUEST SERVICES AGENT [address] [place] [place] [address] PCP - General Family Medicine 05/28/20 Case Assistant Relationship Specialty Start Date End Date Amy Sullivan APRNNANCY [address] [place] [address] PCP - General Family Medicine 05/28/20 Team Status: Active Member Role Status Dates Services [facility] Primary Care Provider Active Team Status: Inactive Member Role Status Dates [facility] Primary Care Provider Active Start: January 21, 2024 End: January 21, 2024 Fiona Smith APRN Attending Provider Active Start: January 21, 2024 End: January 21, 2024 Case Assistant Relationship Specialty Start Date End Date Amy Sullivan APRNNANCY [address] [place] [address] PCP - General Family Medicine 05/28/20 Case Assistant Relationship Specialty Start Date End Date Amy Sullivan APRN-CNP [address] [place] [address] PCP - General Family Medicine 05/28/20 Case Assistant Relationship Specialty Start Date End Date Amy Sullivan APRN-CNP [address] [place] [address] PCP - General Family Medicine 05/28/20 Case Assistant Relationship Specialty Start Date End Date Amy Sullivan APRN-CNP [address] [place] [address] PCP - General Family Medicine 05/28/20 Goals [...] BE BASED ON THE PRIMARY CLINICAL RECORDS. [facility] [employer] [facility]. provides no warranty or guarantee of the accuracy or completeness of information in this document.
== END 2024-07-17 07:49 | disposition home or self-care (01) ==
LOC: EC 07:48
PROVIDERS: Visit Provider Orthopaedic Surgery
DX: S62.636D Displaced fracture of distal phalanx of right little finger, subsequent encounter for fracture with routine healing (principal)
CPT/HCPCS: 73140

== ENCOUNTER 2024-08-21 09:18 | Outpatient (OUT) | payer OTHER, BC, SELFPAY ==
--- NOTE | 2024-08-21 | XR_ITS ---
The [address] [address] Patient Name: ELOY FERMIN MRN: [id number] date: 1990 Sex: F Assigned Patient Location: Current Patient Location: Accession/Order Number: [id number] Exam Date: 08/21/2024 10:57 Report Date: 08/21/2024 10:59 At the request of: LEELA GOODWIN MD Procedure: XR hand RT min 3V RIGHT HAND - 3 views REASON FOR EXAM: Pain involving the DIP joint of fifth digit for one week after physical therapy. COMPARISON: Right hand series 04/10/2024. FINDINGS: No focal soft tissue abnormality. No acute fracture is seen. There appears to be incomplete healing involving the patient's previously identified fracture involving the base of the distal phalanx of the fifth digit. There appears to be fragmentation seen along the volar surface. The remaining digits appear unremarkable. XR/XR hand RT min 3V IMPRESSION: THERE APPEARS BE INCOMPLETE HEALING INVOLVING THE PATIENT'S PREVIOUSLY IDENTIFIED FRACTURE INVOLVING THE BASE OF THE DISTAL PHALANX OF THE FIFTH DIGIT. THERE APPEARS BE NEW FRAGMENTATION ALONG THE VOLAR SURFACE. AN ACUTE COMPONENT CANNOT BE EXCLUDED GIVEN THE HISTORY. Impression dictated by: Bhargav Sargent Jr., D.O.08/21/2024 10:59 AM Dictation Location: [place] [address] Electronically authenticated by: [id number] Y Date: 08/21/2024 10:59
== END 2024-08-21 09:19 | disposition home or self-care (01) ==
LOC: EC 09:19
PROVIDERS: Visit Provider Orthopaedic Surgery
DX: S62.636D Displaced fracture of distal phalanx of right little finger, subsequent encounter for fracture with routine healing (principal)
CPT/HCPCS: 73130

== ENCOUNTER 2024-10-31 19:24 | Outpatient (REF) | payer OTHER, BC, SELFPAY ==
--- OUTSIDE RECORDS SUMMARY | 2024-01-11 10:30 | XMS_ITS ---
Author Organization [facility] vices Address [address] [place] [id number] Care Team Providers Care Financial Cost Analyst Name Role Phone Tera Hillhawa Unavailable [phone] Sergio Poole Unavailable [phone] REASON FOR VISIT Right Knee Pain/tingling Encounters Encounter Location Date Provider Diagnosis Main [address] [place] [id number] 01/11/2024 Sergio Poole Plan Of Treatment No Information Progress Notes * Eduardo FERMINB:1990 ( 34 yo F)Acc No.[id number]:01/11/2024 Medical Note Patient: Marylin VALDOVINOS Provider: Bethany Poole PA-C :1990 A ge:33 Y S ex:Female Date:01/11/2024 Address:[address] [place], [place] [id number] Subjective: * Chief Complaints: * 1 . Right Knee Pain/tingling. * Medical History: Objective: * Vitals: Assessment: Plan: * Treatment: * Billing Information: * Visit Code: * Procedure Codes: * Electronic signature of DANDRE Spann on 10/31/2024 at 02:39 PM EDT Sign off status: Pending * Provider: Bethany Poole PA-C Date: 01/11/2024 Generated for Michelle granado/Dee/eTransmitting on: 10/31/2024 02:39 PM EDT
--- OUTSIDE RECORDS SUMMARY | 2024-08-15 06:24 | XMS_ITS ---
Author Organization [facility] Address [address] [place] [address] Care Team Providers Care State Pilot Name Role Phone Amy Sullivan Primary Care Provider Niko [facility] [phone] REASON FOR VISIT Bump on top of finger where pin was Encounters Encounter Location Date Provider Diagnosis [facility] [facility] [address] [place] [address] [place] [address] 08/15/2024 Niko Leonard Plan Of Treatment No Information Progress Notes * ELOY FERMIN ADOB:1990 (33 yo F)Acc No.[id number]:08/15/2024 Patient: ELOY VALDOVINOS :1990 A ge:33 Y S ex:Female Address:[address] [place] [id number] * true * Date: Generated for Remediosi loy/Domingog/eTransmitting on: 0 10/31/2024 07:30 PM EDT
--- OUTSIDE RECORDS SUMMARY | 2024-09-04 03:50 | XMS_ITS ---
Author Organization [facility] Address [address] [place] [address] Care Team Providers Care Building Custodial Supervisor Name Role Phone Amy Sullivan Primary Care Provider Niko [facility] [phone] REASON FOR VISIT BUMP ON FINGER Encounters Encounter Location Date Provider Diagnosis [facility] [facility] [address] [place] [address] [place] [address] 09/04/2024 Niko Leonard Plan Of Treatment No Information Progress Notes * ELOY FERMIN ADOB:1990 (34 yo F)Acc No.[id number]:09/04/2024 Patient: ELOY VALDOVINOS Provider: Paola Leonard MD :1990 A ge:33 Y S ex:Female Date:09/04/2024 Address:[address] [place], [place] [phone] Pcp:Amy Sullivan Subjective: * Chief Complaints: * 1 . BUMP ON FINGER. * Medical History: Objective: * Vitals: Assessment: Plan: * Treatment: Forms: * Images: * Electronic signature of Sha Leonard MD on 10/31/2024 at 07:29 PM EDT Sign off status: Pending * Provider: Paola Leonard MD Date: 0 09/04/2024 Generated for Michelle granado/Dee/eTransmitting on: 0 10/31/2024 07:29 PM EDT
--- OUTSIDE RECORDS SUMMARY | 2024-10-31 14:40 | XMS_ITS | Encounter Summary ---
Author Organization [facility] Address [address] [place] [address] Care Team Providers Care Assembly Supervisor Name Role Phone Unavailable Primary Care Provider Unavailabl e Reason for Visit * Reason Comments Well Women Visit Encounter Details Date Type Department Care Team (Late st Contact Info) Description 10/31/2024 2:40 PM EDT Office Visit [facility] [address] [place] [address] Palomo Bourgeois, DO [address] Jerrod Schroeder, [facility]11 Well woman exam with routine gynecological exam Social History Tobacco Use Types Packs/Day Years Used Date Smoking Tobacco: Never Smokeless Tobacco: Never Alcohol Use Standard Drinks/Week Comments Never 0 (1 standard drink = 0.6 oz pur e alcohol) Comments No Sex and Gender Information Value Date Recorded Sex Assigned at Female 10/29/2022 1:04 PM EDT Legal Sex Female 9:28 PM EDT Gender Identity Female 10/29/2022 1:04 PM EDT Sexual Orientation Not on file documented as of this encounter Last Filed Vital Signs Vital Sign Reading Time Taken Comments Blood Pressure 120/82 10/31/2024 3:02 PM EDT Pulse - - Temperature - - Respiratory Rate - - Oxygen Saturation - - Inhaled Oxygen Concentration - - Weight 84.6 kg (186 lb 8 oz) 10/31/2024 3:02 PM EDT Height 157.5 cm (5' 2 ) 10/31/2024 3:02 PM EDT Body Mass Index 34.11 10/31/2024 3:02 PM EDT documented in this encounter Plan of Treatment Upcoming Encounters Date Type Department Care Team (Late st Contact Info) Description 11/05/2025 3:00 PM EDT Office Visit [facility] [address] [place] [address] Christelle, Palomo, DO [address] [facility] [address] [place] [address] Scheduled Orders Name Type Priority Associated Diagnoses Orde r Schedule Pap Smear Pathology and Cytology Routine Well woman exam with routine gynecological exam Ordered: 10/31/2024 HPV DNA probe, amplified Microbiology Routine Well woman exam with routine gynecological exam Ordered: 10/31/2024 documented as of this encounter Procedures Procedure Name Priority Date/Time Associated Diagnosis Comments POCT URINALYSIS DIPSTICK Routine 10/31/2024 3:08 PM EDT Well woman exam with routine gynecological exam documented in this encounter Results * POCT urinalysis dipstick manually resulted (10/31/2024 3:08 PM EDT) Color, UA Yellow Clarity, UA Clear Glucose, UA Negative Negative - 2000(110) ++++ mg/dL Bilirubin, UA Negative Negative - 4(70) +++ mg/dL Ketones, UA Negative Negative - 160(16) ++++ mg/dL Spec Grav, UA 1.025 1 - 1.03 Blood, UA Negative Negative - 50 Brendan/mcL pH, UA 7.0 5 - 9 Protein, UA Negative Negative - 2000(20) ++++ mg/dL Urobilinogen, UA 0.2 0.2 - 12 mg/dL Leukocytes, UA Negative Negative - 500+++ Poncho/mcL Nitrite, UA Negative Negative - Positive Urine 10/31/2024 3:08 PM EDT Palomo Bourgeois DO POINT OF CARE TEST ENTER/EDIT OR DERABLES Final Result documented in this encounter Visit Diagnoses Diagnosis Well woman exam with routine gynecological exam Routine gynecological examination documented in this encounter
--- OUTSIDE RECORDS SUMMARY | 2024-10-31 19:29 | XMS_ITS | Encounter Summary ---
Author Organization [facility] Address [address] [place] [address] Care Team Providers Care Disbursing Officer Name Role Phone Unavailable Primary Care Provider Unavailabl e Encounter Details Date Type Department Care Team (Late st Contact Info) Description 11/23/2022 Abstract [facility] [address] [place] [address] Palomo Bourgeois, [facility] Clarke Schroeder, [facility]11 Social History Tobacco Use Types Packs/Day Years Used Date Smoking Tobacco: Never Assessed Comments Yes Sex and Gender Information Value Date Recorded Sex Assigned at Female 10/29/2022 1:04 PM EDT Legal Sex Female 9:28 PM EDT Gender Identity Female 10/29/2022 1:04 PM EDT Sexual Orientation Not on file COVID-19 Exposure Response Date Recorded In the last 10 days, have yo u been in contact with someone who was confirmed or suspected to have Coronavirus/COVID-19? No / Unsure 10/29/2022 1:08 PM EDT documented as of this encounter Plan of Treatment Upcoming Encounters Date Type Department Care Team (Late st Contact Info) Description 11/05/2025 3:00 PM EDT Office Visit [facility] [address] [place] [address] Palomo Bourgeois, DO [address], [facility]11 documented as of this encounter Visit Diagnoses Not on filedocumented in this encounter
--- OUTSIDE RECORDS SUMMARY | 2024-10-31 19:30 | XMS_ITS | Encounter Summary ---
Author Organization [facility] Address [address] [place] [address] Care Team Providers Care Winding Department Supervisor Name Role Phone Unavailable Primary Care Provider Unavailabl e Encounter Details Date Type Department Care Team (Late Contact Info) Description 11/23/2022 External Result Encounter [facility] [address] [place] [address] Palomo Bourgeois, [facility] Clarke Schroeder, [facility] Social History Tobacco Use Types Packs/Day Years [...] Encounters Date Type Department Care Team (Late Contact Info) Description 11/05/2025 3:00 PM EDT Office Visit [facility] [address] [place] [address] Palomo Bourgeois, DO [address] Clarke Schroeder, [facility] documented as of this encounter Procedures Procedure Name Priority Date/Time Associated Diagnosis Comments US OB 14+ WEEKS ANATOMY SCAN 11/23/2022 12:03 PM EDT documented in this encounter Results * US OB 14+ weeks anatomy scan (11/23/2022 12:03 PM EDT) Anatomical Region Laterality Modality Body Ultrasound 11/23/2022 12:0 3 PM EDT Narrative 11/23/2022 12:03 PM EDT THIS EXAM WAS PERFORMED AT [facility] REPORT (Signed Final 11/23/2022 12:03) PATIENT INFO: ID #: [id number] : [birth year] (32 yrs)(F) Name: MARYLIN FERMIN Visit Date: 11/23/2022 10:57 PERFORMED BY: Attending: Fabrice Resendez MD Performed By: Irasema Orellana RDMS Referred By: Palomo Snyder. Address: [address] [place] [address] 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 Cord Insertion: Eccentric (>2cm from edge) Amniotic Fluid DAVID FV: Subjectively within normal limits BIOMETRY: BPD: 50 mm G.Age: 21w 1d 42 % OFD: 63.9 mm HC: 182.5 mm G.Age: 20w 4d 15 % AC: 165.1 mm G.Age: 21w 4d 52 % FL: 34.1 mm G.Age: 20w 5d 22 % HUM: 35.4 mm G.Age: 22w 2d 71 % CER: 23.4 mm G.Age: 21w 5d 75 % NFT: 4.45 mm NB: 6.85 mm 39 % > 1 MoM LV: 4.7 mm CM: 3.1 mm TIB: 31.3 mm G.Age: 21w 4d 58 % CI: 78.2 % 70 - 86 FL/HC: 18.7 % 15.9 - 20.3 HC/AC: 1.11 1.06 - 1.25 FL/BPD: 68.2 % FL/AC: 20.7 % 20 - 24 Est. FW: 401 gm 0 lb 14 oz 36 % OB HISTORY: : 6 Term: 3 SAB: 2 Livin GESTATIONAL AGE: LMP: 21w 2d Date: 06/27/22 MARY: 04/03/23 U/S Today: 21w 0d MARY: 04/05/23 Best: 21w 2d Det. By: LMP (06/27/22) MARY: 04/03/23 TARGETED ANATOMY: Central Nervous System Calvarium/Cranial V.: Appears normal Intracranial Guillermina: Appears normal Cavum: Appears normal Lateral Ventricles: Appears normal Choroid Plexus: Appears normal Cereb./Vermis: Appears normal Cisterna Magna: Appears normal Midline Falx: Appears Normal Spine Cervical: Appears normal Thoracic: Appears normal Lumbar: Appears normal Sacral: Appears normal Head/Neck Face: Appears normal Lips: Appears normal Neck: Appears normal Nuchal Fold: Appears normal Nasal Bone: Present Profile: Appears normal Orbits/Eyes: Appears normal Mandible: Appears Normal Maxilla: Appears normal Thorax Thoracic Contour: Appears normal Lungs: Appears normal 4 Chamber View: Appears normal Cardiac Activity: Appears Normal Cardiac Rhythm: Normal Cardiac Situs: Appears normal Rt Outflow Tract: Appears normal Lt Outflow Tract: Appears normal Aortic Arch: Appears normal Ductal Arch: Appears normal SVC: Appears Normal Interventr. Septum: Appears Normal Cardiac Emmalena: Appears normal Diaphragm: Appears normal 3 Vessel View: Appears normal 3 V Trachea View: Appears Normal IVC: Appears normal Abdomen Ventral Wall: Appears normal Cord Insertion: Appears normal Situs: Appears normal Stomach: Appears normal Liver: Appears normal Lt Kidney: Appears normal Rt Kidney: Appears normal Bladder: Appears normal Extremities Lt Humerus: Appears normal Rt Humerus: Appears normal Lt Forearm: Appears normal Rt Forearm: Appears normal Lt Hand: Appears normal Rt Hand: Appears normal Lt Femur: Appears normal Rt Femur: Appears normal Lt Lower Leg: Appears normal Rt Lower Leg: Appears normal Lt Foot: Appears normal Rt Foot: Appears normal Other Umbilical Cord: Appears normal Genitalia: Male CERVIX UTERUS ADNEXA: Cervix Length: 4.6 cm. Appears closed, without funnelling Uterus Gravid uterus Right Ovary Not visualized due to overlying bowel Left Ovary Visualized Cul De Sac No fluid seen Adnexa No adnexal masses identified COMMENTS: 1. Ultrasound is not diagnostic for chromosomal abnormalities, will not detect all structural abnormalities, and is not diagnostic for genetic disorders even if multiple exams are performed during a given . 2. In addition to the trans abdominal approach, a trans vaginal ultrasound was also performed to optimize the visualization of the lower uterine segment and the cervix. Fabrice Resendez MD Electronically Signed Final Report 11/23/2022 12:03 IMPRESSION: 1. Single intrauterine with size consistent with dates. 2. No sonographic evidence of gross structural abnormality disclosed. 3. No sonographic evidence of placenta accreta identified at this time. 4. Transvaginal Cervical Length = 4.6 cm. RECOMMENDATIONS: 1. Please see [facility] consultation documentation from today's encounter. 2. Subsequent follow up or other follow up as clinically determined by primary OB provider unless otherwise specified by [facility]. 3. Results forwarded to ordering provider so they can follow up with the patient as necessary. The copy-to physician of this order is PALOMO Alas The ordering physician of this order is FABRICE Armendariz Procedure Note Radiology, Radiologist, - 11/23/2022 THIS EXAM WAS PERFORMED AT [facility] REPORT (Signed Final 11/23/2022 12:03) PATIENT INFO: ID #: [id number] : [birth year] (32 yrs)(F) Name: MARYLIN FERMIN Visit Date: 11/23/2022 10:57 PERFORMED BY: Attending: Fabrice Resendez MD Performed By: Irasema Orellana RDAK Referred By: Palomo Bourgeois DO Ref. Address: [address] [place] [address] 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 Cord Insertion: Eccentric (>2cm from edge) Amniotic Fluid DAVID FV: Subjectively within normal limits BIOMETRY: BPD: 50 mm G.Age: 21w 1d 42 % OFD: 63.9 mm HC: 182.5 mm G.Age: 20w 4d 15 % AC: 165.1 mm G.Age: 21w 4d 52 % FL: 34.1 mm G.Age: 20w 5d 22 % HUM: 35.4 mm G.Age: 22w 2d 71 % CER: 23.4 mm G.Age: 21w 5d 75 % NFT: 4.45 mm NB: 6.85 mm 39 % > 1 MoM LV: 4.7 mm CM: 3.1 mm TIB: 31.3 mm G.Age: 21w 4d 58 % CI: 78.2 % 70 - 86 FL/HC: 18.7 % 15.9 - 20.3 HC/AC: 1.11 1.06 - 1.25 FL/BPD: 68.2 % FL/AC: 20.7 % 20 - 24 Est. FW: 401 gm 0 lb 14 oz 36 % OB HISTORY: : 6 Term: 3 SAB: 2 Livin GESTATIONAL AGE: LMP: 21w 2d Date: 06/27/22 MARY: 04/03/23 U/S Today: 21w 0d MARY: 04/05/23 Best: 21w 2d Det. By: LMP (06/27/22) MARY: 04/03/23 TARGETED ANATOMY: Central Nervous System Calvarium/Cranial V.: Appears normal Intracranial Guillermina: Appears normal Cavum: Appears normal Lateral Ventricles: Appears normal Choroid Plexus: Appears normal Cereb./Vermis: Appears normal Cisterna Magna: Appears normal Midline Falx: Appears Normal Spine Cervical: Appears normal Thoracic: Appears normal Lumbar: Appears normal Sacral: Appears normal Head/Neck Face: Appears normal Lips: Appears normal Neck: Appears normal Nuchal Fold: Appears normal Nasal Bone: Present Profile: Appears normal Orbits/Eyes: Appears normal Mandible: Appears Normal Maxilla: Appears normal Thorax Thoracic Contour: Appears normal Lungs: Appears normal 4 Chamber View: Appears normal Cardiac Activity: Appears Normal Cardiac Rhythm: Normal Cardiac Situs: Appears normal Rt Outflow Tract: Appears normal Lt Outflow Tract: Appears normal Aortic Arch: Appears normal Ductal Arch: Appears normal SVC: Appears Normal Interventr. Septum: Appears Normal Cardiac Emmalena: Appears normal Diaphragm: Appears normal 3 Vessel View: Appears normal 3 V Trachea View: Appears Normal IVC: Appears normal Abdomen Ventral Wall: Appears normal Cord Insertion: Appears normal Situs: Appears normal Stomach: Appears normal Liver: Appears normal Lt Kidney: Appears normal Rt Kidney: Appears normal Bladder: Appears normal Extremities Lt Humerus: Appears normal Rt Humerus: Appears normal Lt Forearm: Appears normal Rt Forearm: Appears normal Lt Hand: Appears normal Rt Hand: Appears normal Lt Femur: Appears normal Rt Femur: Appears normal Lt Lower Leg: Appears normal Rt Lower Leg: Appears normal Lt Foot: Appears normal Rt Foot: Appears normal Other Umbilical Cord: Appears normal Genitalia: Male CERVIX UTERUS ADNEXA: Cervix Length: 4.6 cm. Appears closed, without funnelling Uterus Gravid uterus Right Ovary Not visualized due to overlying bowel Left Ovary Visualized Cul De Sac No fluid seen Adnexa No adnexal masses identified COMMENTS: 1. Ultrasound is not diagnostic for chromosomal abnormalities, will not detect all structural abnormalities, and is not diagnostic for genetic disorders even if multiple exams are performed during a given . 2. In addition to the trans abdominal approach, a trans vaginal ultrasound was also performed to optimize the visualization of the lower uterine segment and the cervix. Fabrice Resendez MD Electronically Signed Final Report 11/23/2022 12:03 IMPRESSION: 1. Single intrauterine with size consistent with dates. 2. No sonographic evidence of gross structural abnormality disclosed. 3. No sonographic evidence of placenta accreta identified at this time. 4. Transvaginal Cervical Length = 4.6 cm. RECOMMENDATIONS: 1. Please see [facility] consultation documentation from today's encounter. 2. Subsequent follow up or other follow up as clinically determined by primary OB provider unless otherwise specified by [facility]. 3. Results forwarded to ordering provider so they can follow up with the patient as necessary. The copy-to physician of this order is PALOMO Alas The ordering physician of this order is FABRICE Armendariz us Palomo Bourgeois DO IMG OB US PROCEDURES Final Resul t documented in this encounter Visit Diagnoses Not on filedocumented in this encounter
--- OUTSIDE RECORDS SUMMARY | 2024-10-31 19:30 | XMS_ITS | Patient Health Record ---
Author Organization [facility] vices Address [address] [place] [place], [place] [id number] Care Team Providers Care Ruby On Rails Developer Name Role Phone Tera [place] Unavailable ZulemaSergio Unavailable [phone] Kelly Sheffield Unavailable Allergies No Known Allergies Reason For Referral No Information Medications Medication SIG (Take, Route, Frequency, Duration) Notes Start Date End Date Status predniSONE 10 MG 1 tablet Orally as directed for 12 days Take 4 pills orally for 3 days. Then, Take 3 pills orally for 3 days. Then, Take 2 pills orally for 3 days. Then, Take 1 pill orally for 3 days. Then stop. 04/14/2022 Active Ondansetron HCl 8 MG 1 tablet as needed Orally every 8 hours for 5 days 05/22/2022 Active Cyclobenzaprine HCl 10 MG 1 tablet as needed Orally Once a day for 20 days 04/14/2022 Active Social History Tobacco Use: Social History Observation Description Date Details (start date - stop date) Never Smoker NA - NA Tobacco Use/Smoking Question Answer Notes Tobacco use: nonsmoker Problems Problem Type SNOMED Code ICD Code Onset Dates Problem Status W/U Status Risk Notes Problem Tinea pedis (7049472) Tinea pedis (B35.3) Active confirmed Comment:Signi ficant, entire plantar surface of feet. Will retry topical azole ,cannot do systemic d/t patient . advised can try warm soaks with epsom salt, tea tree oil, use pumice stone for dry skin, apply lotion. notify office if persistent after done ., Problem Ankle pain (487804387) Ankle pain (M25.579) Active confirmed Comment:s/p achilles tendon rupture in 2013 having pain in ankle on fairly constant basis even at rest. worsens w/ activity on exam there is swelling noted over posterior ankle/jie s area advised to contact workers comp to check status of case whether open or closed if closed will need referral back to ortho, Problem Onychomycosis (496237807) Onychomycosis (B35.1) Active confirmed Comment:chron ic, has not responded to OTC medications. advised can only try topicals again d/t patient still . if ineffective & once done nursing could try systemic therapy. advised keeping feet dry, nails well-trimmed. , Encounters Encounter Location Date Provider Diagnosis Main [address] [facility] [id number] 10/04/2024 Kelly Sheffield Plan Of Treatment No Information Insurance Providers Payer Name Payer Address Payer Phone Subscriber Number Group Number Insured Name Patient Relationship to Insured Coverage Start Date Coverage End Date [employer] [address] [place], [place] [id number] ErikFrancisco soliz Spouse - patient is the spouse of the insured 1 [employer] [address] [place], [place] [id number] [id number] 5 Marylin Valencia Self - patient is the insured 2 2 Medical (General) History Medical History History ICD Code Post Depression, COMMENTS: Navjot Rabago Surgical History Surgery Date(Month/Year) Delivery - 3
--- OUTSIDE RECORDS SUMMARY | 2024-10-31 19:30 | XMS_ITS | Encounter Summary ---
Author Organization [facility] Address [address] [place] [address] Care Team Providers Care Hogshead Wrecker Name Role Phone Unavailable Primary Care Provider Unavailabl e Encounter Details Date Type Department Care Team (Latest Contact Info) Description 10/31/2024 Travel Social History Tobacco Use Types Packs/Day Years [...] on file documented as of this encounter Plan of Treatment Upcoming Encounters Date Type Department Care Team (Late st Contact Info) Description 11/05/2025 3:00 PM EDT Office Visit [facility] [address] [place] [address] Palomo Bourgeois, DO [address] [facility] [address] Jerrod Schroeder, [facility] documented as of this encounter Visit Diagnoses Not on filedocumented in this encounter
--- OUTSIDE RECORDS SUMMARY | 2024-10-31 19:30 | XMS_ITS | Patient Health Record ---
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 Name Role Phone StefanAmy pizano Primary Care Provider Niko Sage Unavailable [phone] Luli Rolon Unavailable [phone] Allergies Allergen (clinical drug ingredient) Drug/Non Drug Allergy documented on EMR Reaction Allergy Type Onset Date Status NSAIDS (uncoded) Unknown Allergy Act sita Results Component Value Reference Range Notes PTT Reviewed date:06/13/2024 10:51:34 AM Interpretation: Performing Lab: Notes/Report: Chem 8, Venous Reviewed date:06/13/2024 10:51:29 AM Interpretation: Performing Lab: Notes/Report: SCC- HAND 3 VIEW RIGHT 73046 Reviewed date:04/20/2024 10:58:56 AM Interpretation: Performing Lab: Notes/Report: Surgery Scheduling Reviewed date:04/20/2024 10:58:41 AM Interpretation: Performing Lab: Notes/Report: Primary Insurance Company: [facility] Surgeon/Assist: ISABELLA Surgery Location: [facility] Surgery Date & Time: 04/11/24 Surgery End Time: ONE HOUR Procedure: OPEN REDUCTION INTER NAL FIXATION RIGHT SMALL FINGER DISTAL PHALANX FRACTURE, 28725 Special Equipment: KWIRES C-Arm: YES Diagnosis: S62.636 Admission Type: OUTPATIENT Anesthesia Type/CPNB: GENERAL/BLOCK Post-op Appointment Date: 2 WEEKS Latex Allergy NO Lab Location: [facility] [employer] Controller: MARIA LUISA CBC with diff, BMP, EKG Reviewed date:06/13/2024 10:51:41 AM Interpretation: Performing Lab: Notes/Report: SCC- FINGER 3 VIEW RIGHT 731 40 Reviewed date:04/20/2024 10:58:50 AM Interpretation: Performing Lab: Notes/Report: SCC- FINGER 3 VIEW RIGHT 731 40 Reviewed date:06/13/2024 02:46:10 PM Interpretation: Performing Lab: Notes/Report: SCC- FINGER 3 VIEW RIGHT 731 40 Reviewed date:06/15/2024 04:05:19 PM Interpretation: Performing Lab: Notes/Report: SCC- FINGER 3 VIEW RIGHT 731 40 Reviewed date:08/17/2024 10:00:25 AM Interpretation: Performing Lab: Notes/Report: Reason For Referral Reason APPROVED [facility]. ......04/11.............PLEASE OBTAIN AUTHORIZATION FOR OPEN REDUCTION INTERNAL FIXATION RIGHT SMALL FINGER DISTAL PHALANX FRACTURE Diagnosis 1 Closed displaced fra cture of distal phalanx of right little finger, initial encounter (S69.369A) Referral Organization [facility] Referring Provider First Name Niko Referring Provider Last Name Horacio Referring Provider Speciality Orthopedic Surgery Referred Organization [facility] Referred Address [address] [place], [place],[address], Procedure 1 ORIF of distal phala ngeal (25887) General Notes Gertrude Norton 2023 11:20:44 AM > req Cierra laura Tammy 04/10/2024 11:49:47 AM >Indra Nichols 04/10/2024 11:46:17 >Cpt code 77848, Gertrude Norton 04/10/2024 11:57:44 AM > APPROVED Auth #[id number], Valid 04/11/2024 - 07/10/2024, auth scanned in. No precert required for secondary ins, [employer] per code field checker. [employer] is active per Availity, Referral Priority Stat Social History Tobacco Use: Social History Observation Description Date Details (start date - stop date) Never Smoker NA - NA AUDIT-C (Standard) Question Answer Notes Did you have a drink containing alcohol in the p ast year? No Points 0 Interpretation Negative Tobacco Control (Standard) Question Answer Notes Tobacco use: Nonsmoker Problems Problem Type SNOMED Code ICD Code Onset Dates Problem Status W/U Status Risk Notes Problem 810516049 Displaced fracture of distal phalanx of right little finger, subsequent encounter for fracture with routine healing (S62.636D) Active confirmed Problem [id number] Closed displaced fracture of distal phalanx of right little finger, initial encounter (S62.636A) Active confirmed Vital Signs Height 5'2 in 07/17/2024 Weight 180 lbs 07/17/2024 BMI 32.92 07/17/2024 Encounters Encounter Location Date Provider Diagnosis [facility] [address] [facility] [address] [place] [address] 04/10/2024 Niko Leonard Closed displaced fracture of distal phalanx of right little finger, initial encounter S62.636A [facility] [address] [place] [address] 04/11/2024 Niko Leonard Displaced fracture of distal phalanx of right little finger, initial encounter for closed fracture S62.636A [facility] [address] [facility] [place] [address] 04/24/2024 Niko Leonard Closed displaced fracture of distal phalanx of right little finger, initial encounter S62.636A [facility] [address] [facility] [address] [place] [address] 06/12/2024 Niko Leonard Displaced fracture of distal phalanx of right little finger, subsequent encounter for fracture with routine healing S62.636D [facility] [address] [facility] [place] [address] 07/17/2024 Luli Skandia Displaced fracture of distal phalanx of right little finger, subsequent encounter for fracture with routine healing S62.636D [facility] [address] [facility] [address] [place] [address] 08/21/2024 Luli Skandia Displaced fracture of distal phalanx of right little finger, subsequent encounter for fracture with routine healing S62.636D [facility] [address] [facility] [address] [place] [address] 04/07/2024 Niko Leonard [facility] [address] [facility] [address] [place] [address] 05/19/2024 Niko Leonard [facility] [address] [place] [address] [place] [address] 05/19/2024 Niko Michelleland [facility] [address] [place] [address] [place] [address] 06/01/2024 Niko Leonard [facility] [address] [place] [address] [place] [address] 06/01/2024 Niko Leonard [facility] [address] [facility] [place] [address] [place] [address] 07/03/2024 Niko Leonard [facility] [facility] [address] [facility] [address] [place] [address] 07/03/2024 Niko Leonard [facility] [facility] [address] [place] [address] [place] [address] 08/15/2024 Niko Leonard Assessments Encounter Date Diagnosis (ICD Code) Assessment Notes Treatment Notes Treatment Clinical Notes Section Notes 04/10/2024 Closed displaced fracture of distal phalanx of right little finger, initial encounter (ICD-10 - S62.636A) 04/11/2024 Displaced fracture of distal phalanx of right little finger, initial encounter for closed fracture (ICD-10 - S62.636A) 04/24/2024 Closed displaced fracture of distal phalanx of right little finger, initial encounter (ICD-10 - S62.636A) 06/12/2024 Displaced fracture of distal phalanx of right little finger, subsequent encounter for fracture with routine healing (ICD-10 - S62.636D) 07/17/2024 Displaced fracture of distal phalanx of right little finger, subsequent encounter for fracture with routine healing (ICD-10 - S62.636D) 08/21/2024 Displaced fracture of distal phalanx of right little finger, subsequent encounter for fracture with routine healing (ICD-10 - S62.636D) 04/10/2024 Other For her right small finger fracture I have recommended closed reduction and percutaneous pinning versus open reduction internal fixation. I have discussed both of risks and benefits of surgical and nonsurgical treatment options. She has elected to proceed with right small finger closed reduction and percutaneous pinning versus ORIF. We have gone through additional risks and the informed consent process including but not limited to risk of persistent postoperative pain and posttraumatic arthritis, loss of motion which she understands and has elected to proceed with. This will serve as the H & P. Import medication 04/24/2024 Other She was placed in a splint today in clinic. She will continue to work on her PIP joint motion. She will follow-up in 4 weeks to repeat x-rays out of the splint and reassess her progress. Import medication 06/12/2024 Other Pins were removed today in clinic without difficulty. I recommended therapy to work on restoring motion. She has a [id number]-[id number] that is a therapist and prefers to get treated by her lxaqpc-pf-hun. She will follow-up in 4 weeks to repeat x-rays and reassess her progress. Import medication 07/17/2024 Other Patient is continuing to progress with her ROM but has not reach full flexion. I did show her new techniques to help increase her ROM as she has 4 children and does not think she would have time to go to physical therapy. We will see her back in 6 to 8 weeks as needed. 08/21/2024 Other Patient is florini ng some increased swelling at the DIP of her fifth digit. Going to give her a Medrol Dosepak and have her continue to work on passive and active flexion as she was previously. We will see her back in 2 weeks for recheck. Plan Of Treatment Pending Test Test Name Order Date SCC- HAND 3 VIEW RIGHT [address]13 08/21/2024 Insurance Providers Payer Name Payer Address Payer Phone Subscriber Number Group Number Insured Name Patient Relationship to Insured Coverage Start Date Coverage End Date [facility] [address] [address] [place] [address] [phone] [id number] ELOY FERMIN Self - patient is the insured [employer] [address] [place] [address] [id number] JENY FRANCISCO Spouse - patient is the spouse of the insured [facility] [address] [address] [place] [address] [phone] [id number] ELOY FERMIN Self - patient is the insured 4 Medical (General) History Surgical History Surgery Date(Month/Year) Closed reduction and percuta neous pinning of a right fifth finger mallet fracture 04/11/2024
--- OUTSIDE RECORDS SUMMARY | 2024-10-31 19:30 | XMS_ITS | Encounter Summary ---
Author Organization [facility] Address [address] [place] [address] Care Team Providers Care Package Delivery Driver Name Role Phone Unavailable Primary Care Provider Unavailabl e Encounter Details Date Type Department Care Team (Late Contact Info) Description 10/31/2024 Bamboo flowsheet [facility] [address] [facility] [place] [address] Palomo Bourgeois, DO [address] [place], [facility] Social History Tobacco Use Types Packs/Day Years [...] 11/05/2025 3:00 PM EDT Office Visit [facility] [address] [place] [address] aPlomo Bourgeois, [address] [place], [facility] documented as of this encounter Visit Diagnoses Not on filedocumented in this encounter
--- OUTSIDE RECORDS SUMMARY | 2024-10-31 19:31 | XMS_ITS | Clinical Summary ---
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 Active citalopram (CeleXA) 20 MG tabletIndicat ions:Postpart um anxiety Take 1 tablet (20 mg) by mouth in the morning. 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/s at [facility] secondary to her vWD, factor availability, and NICU capabiities 2. We will obtain her 3rd trimester levels (WNL)/ If well within normal limits she will not require any pre-delivery treatment. She has never required factor replacement in the past. 3. She will be cleared for spinal anesthesia once these levels are reviewed. Again, if rcof is greater than 50% she will not require any pre-treatment. 4. If excessive bleeding occurs post-delivery, we recommend tranexamic acid 10mg/kg be given IVPB followed by oral TXA at 1300mg po q8h for up to 10 days. 5. We do not recommend the use of DDAVP as first line tx in the setting of delivery 6. If is male circumcision is to be deferred until 2 year of age once child can be tested for vWD Resolved Problems Problem Noted Date Diagnosed Date Resolved Date Rh negative state in antepar abdirahman period, third trimester 09/16/2020 03/30/2023 Overview (01/05/2023): Rec'd Rhogam 08/03/20 Iron deficiency anemia of mo ther during 08/05/2020 03/30/2023 Overview (01/05/2023): Has referral for iron infusion 07/29/20 Ferritin 6 09/17/20 9.6/30 MCV 81 10/01/20 Bld Mgmt working on request for injectafer as patient cannot take off 5 days for venofer Hematologic disorder in moth er affecting 05/28/2020 03/30/2023 Encounters Date Type Department Care Team Description 10/31/2024 2:40 PM EDT Office Visit [facility] [address] [place] [address] Palomo Bourgeois, Well woman exam with routine gynecological exam 10/31/2024 Bamboo flowsheet [facility] [address] [place] [address] Palomo Bourgeois DO 10/31/2024 Travel from Last 3 Months Family History Relation Name Status Comments Brother 1 Alive Brother 2 Alive Daughter 1 [place] Alive Daughter 2 [place] Alive Father Mother Alive Sister 1 Alive Sister 2 Alive Son Josiah Alive Social History Tobacco Use Types Packs/Day Years Used Date Smoking Tobacco: Never Smokeless Tobacco: Never Tobacco Cessation:Counseling Given: Not Answered Alcohol Use Standard Drinks/Week Comments Never 0 (1 standard drink = 0.6 oz pur e alcohol) Comments No Sex and Gender Information Value Date Recorded Sex Assigned at Female 10/29/2022 1:04 PM EDT Legal Sex Female 9:28 PM EDT Gender Identity Female 10/29/2022 1:04 PM EDT Sexual Orientation Not on file Last Filed Vital Signs Vital Sign Reading [...] Mass Index 34.11 10/31/2024 3:02 PM EDT Plan of Treatment Upcoming Encounters Date Type Department Care Team (Late st Contact Info) Description 11/05/2025 3:00 PM EDT Office Visit [facility] [address] [place] [address] ChristellePalomo charles, DO [address] [facility] [place] [address] Procedures Procedure Name Priority Date/Time Associated Diagnosis Comments POCT URINALYSIS DIPSTICK Routine 10/31/2024 3:08 PM EDT Well woman exam with routine gynecological exam from Last 3 Months Results * POCT urinalysis dipstick manually resulted (10/31/2024 3:08 PM EDT) Color, UA Yellow Clarity, UA Clear Glucose, UA Negative Negative - 1999(110) ++++ mg/dL Bilirubin, UA Negative Negative - 4(70) +++ mg/dL Ketones, UA Negative Negative - 160(16) ++++ mg/dL Spec Grav, UA 1.025 1 - 1.03 Blood, UA Negative Negative - 50 Brendan/mcL pH, UA 7.0 5 - 9 Protein, UA Negative Negative - 1999(20) ++++ mg/dL Urobilinogen, UA 0.2 0.2 - 12 mg/dL Leukocytes, UA Negative Negative - 500+++ Poncho/mcL Nitrite, UA Negative Negative - Positive Urine 10/31/2024 3:08 PM EDT Palomo Bourgeois DO POINT OF CARE TEST ENTER/EDIT OR DERABLES Final Result from Last [address] [facility]
--- OUTSIDE RECORDS SUMMARY | 2024-10-31 19:46 | XMS_ITS | CCD ---
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 Name Role Phone CHRISTELLE ., DR [...] Unavailable CHRISTELLE ., DR BHAGAT Admitting Unavailable Unavailable Primary Care Provider Unavailabl e OLAYINAK BOURGEOIS Attending Unavailable CHRISTELLEOLAYINKA Attending Unavailable CHRISTELLEOLAYINKA Attending Unavailable Anglim COMPUTER DESIGNER-TEXTILE SCREEN PRINTERAmy A Primary Care Provider Allergies Allergy Classification Reported Allergen(s) Allergy Type Date of Onset Reaction(s) Facility (1 source) NSAIDs Drug allergy (disorder) [facility] Repository (4 sources) Non-steroidal anti-inflammator y agent Drug Intolerance 2 [facility] [employer] Work Phone: (8 sources) Non-steroidal anti-inflammator y agent Propensity to adverse reactions to drug 2 [employer] Work Phone: Medications Current Medications Medication Drug Class(es) Dates Sig (Normalized) Sig (Original) acetaminophen 500 mg oral capsule (9 sources) Start: 01-21-2024 take 1000 mg by mouth every six hours Acetaminophen Active 1000 MG PO Every 6 hours January 21, 2024 12:00am Start: 05-13-2023 take 2 tablets by mo uth every six hours acetaminophen (TYLENOL EXTRA STRENGTH) 500 mg tablet Take 2 tablets (1,000 mg total) by mouth every 6 (six) hours. 60 tablet 1 05/13/2023 Active cholecalciferol 0.1 mg oral capsule (16 sources) Vitamin D Start: 06-18-2022 take 1 [...] Active ferrous sulfate 325 mg oral tablet (9 sources) Start: 03-31-2023 End: 08-02-2024 take 1 tablet by mouth once daily at breakfast ferrous sulfate 325 (65 FE) mg tablet Take 1 tablet (325 mg total) by mouth daily with breakfast. 90 tablet 3 08/03/2023 08/02/2024 Active folic acid 1 mg oral tablet (8 sources) Start: 01-06-2023 take 1 tablet by mouth in the morning folic acid (FOLVITE) 1 mg tablet Indications: Folate deficiency TAKE 1 TABLET (1 MG TOTAL) BY MOUTH IN THE MORNING 30 tablet 11 01/06/2023 Active 25/iron fum/folic/dha (-1 ORAL) (8 sources) 25/iron fum/folic/dha (-1 ORAL) Take by [...] Active vitamin b12 2.5 mg oral tablet (12 sources) Vitamin B12 Start: 3 take 1 [...] 3 03/01/2023 08/03/2023 Discontinued polyethylene glycol 3350 53481 mg powder for oral solution (1 source) Osmotic Laxative Start: 04-01-2023 End: 08-03-2023 polyethylene glycol (GLYCOLAX) 17 gram packet Take 17 g by mouth in the morning. 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] Onset: 07-01-2006 Resolved: 04-04-2019 01-21-2024 Chronic Menstrual disorders (10 sources) Irregular menstruation, unspecified; Translations: [Missed period] Onset: 06-09-2022 Chronic Nausea and vomiting (1 source) Nausea; Translations: [Nausea] 04-10-2024 Episodic Other endocrine disorders (1 source) Polycystic ovary syndrome; Translations: [Polycystic ovarian syndrome] 04-10-2024 Chronic Other gastrointestinal disorders (9 sources) Malabsorption - iron; Translations: [Intestinal malabsorption, unspecified] Onset: 08-03-2023 08-03-2023 Chronic Other hematologic conditions (1 source) History of [...] Documented Date Episodic/Chronic Contraceptive and procreative management (16 sources) Sterilization requested; Translations: [Encounter for sterilization] Onset: 12-30-2016 Resolved: 04-04-2019 12-03-2022 Episodic Deficiency and other anemia (8 sources) Folate deficiency anemia due to dietary causes; Translations: [Dietary folate deficiency anemia] Onset: 12-31-2022 02-12-2023 Episodic Genitourinary symptoms and ill-defined conditions (8 sources) Decreased urine output; Translations: [Anuria and oliguria] Onset: 12-29-2016 Resolved: 04-04-2019 08-24-2022 Episodic Hemorrhage during ; abruptio placenta; placenta previa (4 sources) Hemorrhage in early , unspecified; Translations: [HEMORRHAGE EARLY UNS] Onset: 08-09-2022 Episodic Hypertension complicating ; childbirth and the puerperium (8 sources) -induced hypertension; Translations: [Gestational [-induced] hypertension without significant proteinuria, unspecified trimester] Onset: 12-29-2016 Resolved: 04-04-2019 08-24-2022 Episodic Liveborn (8 sources) Born by section; Translations: [Single liveborn infant, delivered by ] Onset: 01-25-2018 Resolved: 04-04-2019 08-24-2022 Episodic Mood disorders (8 sources) Mood disorders Onset: 08-03-2023 08-03-2023 Nonmalignant breast conditions (8 sources) Lump in left breast; Translations: [Unspecified lump in the left breast, unspecified quadrant] Onset: 04-18-2020 Resolved: 05-28-2020 05-28-2020 Episodic Nutritional deficiencies (9 sources) Iron deficiency; Translations: [Iron deficiency] Onset: 08-03-2023 08-03-2023 Episodic Other complications of (12 sources) Iron deficiency anemia; Translations: [Anemia complicating , unspecified trimester] Onset: 08-05-2020 Resolved: 03-30-2023 05-10-2023 Chronic Other complications of (12 sources) Complication occurring during ; Translations: [Other diseases of the blood and blood-forming organs and certain disorders involving the immune mechanism complicating , unspecified trimester] Onset: 05-28-2020 Resolved: 03-30-2023 05-10-2023 Episodic Other complications of (12 sources) RhD negative; Translations: [Other specified related conditions, third trimester] Onset: 09-16-2020 Resolved: 03-30-2023 05-10-2023 Episodic Other connective tissue disease (4 sources) Diastasis recti; Translations: [Separation of muscle (nontraumatic), other site] Onset: 11-08-2023 11-08-2023 Episodic Other hematologic conditions (1 source) H/O: anemia - iron deficient; Translations: [Personal history of diseases of the blood and blood-forming organs and certain disorders involving the immune mechanism] 08-03-2023 Episodic Other and delivery including normal (20 sources) Encounter for supervision of other normal , first trimester; Translations: [Encounter for supervision of normal , unspecified, first trimester] Onset: 12-28-2016 Resolved: 03-04-2023 Episodic Previous (8 sources) ; Translations: [Maternal care for unspecified type scar from previous delivery] Onset: 04-18-2020 Resolved: 10-18-2020 10-18-2020 Episodic Residual codes; unclassified (1 source) Less than 8 weeks gestation of ; Translations: [< 8 WEEKS GESTATION ] Onset: 08-11-2022 Episodic Residual codes; unclassified (12 sources) Carrier of cystic fibrosis gene mutation; 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 Basophils/100 WBC (Bld) 0.7 % [facility] Eosinophils (Bld) [#/Vol] 0.1 10*3/uL [facility] Eosinophils/100 WBC (Bld) 2.0 % [facility] Erythrocyte distribution width (RBC) [Ratio] 13.8 % 11.5 - 15.0 % [facility] Hematocrit (Bld) [Volume fraction] 41.2 % 35 - 47 % [facility] Hemoglobin (Bld) [Mass/Vol] 13.9 g/dL 11.7 - 15.5 g/dL [facility] Lymphocytes (Bld) [#/Vol] 1.7 10*3/uL [facility] Lymphocytes/100 WBC (Bld) 32.1 % [facility] MCH (RBC) [Entitic mass] 29.3 pg 27 - 34 pg [facility] MCHC (RBC) [Mass/Vol] 33.8 g/dL 32 - 36 g/dL [facility] MCV (RBC) [Entitic vol] 87 fL 80 - 100 fL [facility] Monocytes (Bld) [#/Vol] 0.6 10*3/uL [facility] Monocytes/100 WBC (Bld) 10.6 % [facility] Neutrophils (Bld) [#/Vol] 2.9 10*3/uL [facility] Neutrophils/100 WBC (Bld) 54.6 % [facility] Platelet mean volume (Bld) [Entitic vol] 8.4 fL 7 - 12 fL [facility] Platelets (Bld) [#/Vol] 244 10*3/uL [facility] RBC (Bld) [#/Vol] 4.75 10*6/uL [facility] WBC corrected for nucl RBC Auto (Bld) [#/Vol] 5.4 [facility] Cobalamin (Vitamin B12) [Mas s/Vol]on 08-03-2023 [facility] Ferritinon 08-03-2023 Ferritin [Mass/Vol] 39 ng/mL 11 - 307 ng/mL [facility] Ferritin [Mass/Vol]on 2023 [facility] Iron and TIBCon 08-03-2023 Interpretation and review of laboratory results Abnormal [facility] Iron [Mass/Vol] 59 ug/dL 50 - 170 ug/dL [facility] Iron binding capacity [Mass/Vol] 414 ug/dL 250 - 425 ug/dL [facility] Iron saturation [Mass fraction] 14 Low [facility] Vitamin B12on 08-03-2023 Cobalamin (Vitamin B12) [Mass/Vol] 275 pg/mL 180 - 914 pg/mL [facility] HEP B SURFACE ANTIGEN SCREEN on 09-08-2022 HBsAg Screen Negative Normal Negative [facility] Comment on above: Performed By: #### A 1C #### [facility] [address] [place] [address] Dr. Emilie Plascencia HEPATITIS C VIRUS AB W/ REFL EX QUANTon 09-08-2022 HCV AB Non-Reactive Normal Non Reactive [facility] Comment on above: Performed By: #### H CVPCRR #### [facility] [address] [place] [address] Dr. Emilie Plascencia Interpretation: Comment Normal [facility] Comment on above: Result Comment: Not infected with HCV unless early or acute infection is suspected (which may be delayed in an immunocompromised individual), or other evidence exists to indicate HCV infection. Performed By: #### H CVPCRR #### [facility] [address] [place] [address] Dr. Emilie Plascencia HIV 1 AND 2 WITH REFLEXon HIV Screen 4th Generation wRfx Non-Reactive Normal Non Reactive [facility] Comment on above: Result Comment: HIV Negative HIV-1/HIV-2 antibodies and HIV-1 p24 antigen were NOT detected. There is no laboratory evidence of HIV infection. Performed By: #### H IV12 #### [facility] [address] [place] [address] Dr. Emilie Plascencia RPR QUANTon 09-08-2022 Rapid Plasma Reagin, Quant Non-Reactive Normal NonRea<1:1 [facility] Comment on above: Result [...] utilized, such as Treponema pallidum (Syphilis) Screening [place] (123402) or Rapid Plasma Reagin (RPR) Test With Reflex to Quantitative RPR and Confirmatory Treponema pallidum Antibodies (574136). Performed By: #### A 1C #### [facility] [address] [place] [address] Dr. Emilie Plascencia RUBELLA AB IGGon 09-08-2022 Rubella Antibodies, IgG 1.82 index Normal Immune >0.99 [facility] Comment on above: Result Comment: Non- immune <0.90 Equivocal 0.90 - 0.99 Immune >0.99 Performed By: #### R UBIGG #### [facility] [address] [place] [address] Dr. Emilie Plascencia BOX TEST SENT OUTon 09-06-19 23 SENT TO REF LAB 09/05/2022 Normal [facility] Comment on above: Performed By: #### A 1C #### [facility] [address] [place] [address] Dr. Emilie Plascencia CBC AUTO DIFFon 09-05-2022 BASO # 0.0 103/ul Normal 0.0-0.1 [facility] Comment on above: Performed By: #### C BC #### [facility] [address] [place] [address] Dr. Emilie Plascencia Basophils/100 WBC (Bld) 0.5 % Normal 0.2-2.0 [facility] Comment on above: Performed By: #### C BC #### [facility] [address] [address] [address] Emilie Plascencia EO # 0.1 103/ul Normal 0.0-0.7 [facility] Comment on above: Performed By: #### C BC #### [facility] [address] [address] [address] Emilie Plascencia Eosinophils/100 WBC (Bld) 1.2 % Normal 0.9-7.0 [facility] Comment on above: Performed By: #### C BC #### [facility] [address] [place] [address] Dr. Emilie Plascencia Erythrocyte distribution width (RBC) [Ratio] 12.8 % Normal 11.0-15.0 [facility] Comment on above: Performed By: #### C BC #### [facility] [address] [place] [address] Dr. Emilie Plascencia Hematocrit (Bld) [Volume fraction] 39.1 % Normal 36.0-48.0 [facility] Comment on above: Performed By: #### C BC #### [facility] [address] [place] [address] Dr. Emilie Plascencia Hemoglobin (Bld) [Mass/Vol] 12.9 g/dL Normal 12.0-16.0 [facility] Comment on above: Performed By: #### C BC #### [facility] [address] [place] [address] Dr. Emilie Plascencia IG # 0.04 10e3/ul Critically high 0.00-0.03 [facility] Comment on above: Performed By: #### C BC #### [facility] [address] [place] [address] Dr. Emilie Plascencia IG % 0.5 % Normal 0.0-0.5 [facility] Comment on above: Performed By: #### C BC #### [facility] [address] [place] [address] Dr. Emilie Plascencia LYMPH # 1.9 103/ul Normal 1.2-3.8 [facility] Comment on above: Performed By: #### C BC #### [facility] [address] [place] [address] Dr. Emilie Plascencia Lymphocytes/100 WBC (Bld) 23.7 % Normal 20.5-60.0 [facility] Comment on above: Performed By: #### C BC #### [facility] [address] [place] [address] Dr. Emilie Plascencia MANUAL DIFF REQ NO Normal [facility] Comment on above: Performed By: #### C BC #### [facility] [address] [place] [address] Dr. Emilie Plascencia MCH (RBC) [Entitic mass] 29.4 pg Normal 26.7-34.0 [facility] Comment on above: Performed By: #### C BC #### [facility] [address] [place] [address] Dr. Emilie Plascencia MCHC (RBC) [Mass/Vol] 33.0 g/dL Normal 29.9-35.2 [facility] Comment on above: Performed By: #### C BC #### [facility] [address] [place] [address] Dr. Emilie Plascencia MCV (RBC) [Entitic vol] 89.1 fL Normal 81.0-99.0 [facility] Comment on above: Performed By: #### C BC #### [facility] [address] [place] [address] Dr. Emilie Plascencia MONO # 0.5 103/ul Normal 0.3-0.8 [facility] Comment on above: Performed By: #### C BC #### [facility] [address] [place] [address] Dr. Emilie Plascencia Monocytes/100 WBC (Bld) 6.7 % Normal 1.7-12.0 [facility] Comment on above: Performed By: #### C BC #### [facility] [address] [place] [address] Dr. Emilie Plascencia NEUT # 5.4 103/ul Normal 1.4-6.5 [facility] Comment on above: Performed By: #### C BC #### [facility] [address] [place] [address] Dr. Emilie Plascencia Neutrophils/100 WBC (Bld) 67.4 % Normal 43.0-75.0 [facility] Comment on above: Performed By: #### C BC #### [facility] [address] [place] [address] Dr. Emilie Plascencia Platelet mean volume (Bld) [Entitic vol] 10.3 fL Normal 9.5-13.5 [facility] Comment on above: Performed By: #### C BC #### [facility] [address] [place] [address] Dr. Emilie Plascencia PLT 284 103/ul Normal 150-450 [facility] Comment on above: Performed By: #### C BC #### [facility] [address] [place] [address] Dr. Emilie Plascencia RBC 4.39 106/ul Normal 4.20-5.40 [facility] Comment on above: Performed By: #### C BC #### [facility] [address] [place] [address] Dr. Emilie Plascencia WBC 8.0 103/ul Normal 4.0-11.0 [facility] Comment on above: Performed By: #### C BC #### [facility] [address] [place] [address] Dr. Emilie Plascencia CULTURE URINEon 09-05-2022 CULTURE URINE Culture Observations : LIGHT GROWTH OF MIXED GENITAL ESCOBAR. NO POTENTIAL PATHOGENS SEEN. Normal [facility] Comment on above: Performed By: #### A 1C #### [facility] [address] [place] [address] Dr. Emilie Plascencia GLYCOHEMOGLOBIN A1Con 2022 ADA RECOMMENDATION SEE BELOW Normal [facility] Comment on above: Result Comment: ADA RECOMMENDED LIMIT 4.0 - 6.0 ADA THERAPEUTIC TARGET < 7.0 ACTION SUGGESTED > 7.0 Performed By: #### A 1C #### [facility] [address] [place] [address] Dr. Emilie Plascencia Glucose [Mass/Vol] 97 mg/dL Normal [facility] Comment on above: Performed By: #### A 1C #### [facility] [address] [place] [address] Dr. Emilie Plascencia HbA1c (Bld) [Mass fraction] 5.0 % Normal 4.5-6.2 [facility] Comment on above: Performed By: #### A 1C #### [facility] [address] [place] [address] Dr. Emilie Plascencia TSHon 09-05-2022 TSH 0.330 uIU/mL Critically low 0.358-3.740 [facility] Comment on above: Performed By: #### T SH #### [facility] [address] [place] [address] Dr. Emilie Plascencia TYPE AND SCREENon 09-05-2022 TYPE AND SCREEN Negative Normal [facility] Comment on above: Performed By: #### A 1C #### [facility] [address] [place] [address] Dr. Emilie Plascencia US PREG TVon 09-03-2022 [...] KEISHA KENT Date: 2022-09-03 15:33 Normal [facility] CBC AUTO DIFFon 08-09-2022 BASO # 0.0 103/ul Normal 0.0-0.1 [facility] Comment on above: Performed By: #### A 1C #### [facility] [address] [place] [address] Dr. Emilie Plascencia Basophils/100 WBC (Bld) 0.3 % Normal 0.2-2.0 [facility] Comment on above: Performed By: #### A 1C #### [facility] [address] [place] [address] Dr. Emilie Plascencia EO # 0.1 103/ul Normal 0.0-0.7 [facility] Comment on above: Performed By: #### A 1C #### [facility] [address] [place] [address] Dr. Emilie Plascencia Eosinophils/100 WBC (Bld) 1.4 % Normal 0.9-7.0 [facility] Comment on above: Performed By: #### A 1C #### [facility] [address] [place] [address] Dr. Emilie Plascencia Erythrocyte distribution width (RBC) [Ratio] 12.7 % Normal 11.0-15.0 [facility] Comment on above: Performed By: #### A 1C #### [facility] [address] [place] [address] Dr. Emilie Plascencia Hematocrit (Bld) [Volume fraction] 35.7 % Critically low 36.0-48.0 [facility] Comment on above: Performed By: #### A 1C #### [facility] [address] [place] [address] Dr. Emilie Plascencia Hemoglobin (Bld) [Mass/Vol] 12.0 g/dL Normal 12.0-16.0 [facility] Comment on above: Performed By: #### A 1C #### [facility] [address] [place] [address] Dr. Emilie Plascencia IG # 0.01 10e3/ul Normal 0.00-0.03 [facility] Comment on above: Performed By: #### A 1C #### [facility] [address] [place] [address] Dr. Emilie Plascencia IG % 0.2 % Normal 0.0-0.5 [facility] Comment on above: Performed By: #### A 1C #### [facility] [address] [place] [address] Dr. Emilie Plascencia LYMPH # 1.7 103/ul Normal 1.2-3.8 [facility] Comment on above: Performed By: #### A 1C #### [facility] [address] [place] [address] Dr. Emilie Plascencia Lymphocytes/100 WBC (Bld) 26.6 % Normal 20.5-60.0 [facility] Comment on above: Performed By: #### A 1C #### [facility] [address] [place] [address] Dr. Emilie Plascencia MANUAL DIFF REQ NO Normal [facility] Comment on above: Performed By: #### A 1C #### [facility] [address] [place] [address] Dr. Emilie Plascencia MCH (RBC) [Entitic mass] 29.3 pg Normal 26.7-34.0 [facility] Comment on above: Performed By: #### A 1C #### [facility] [address] [place] [address] Dr. Emilie Plascencia MCHC (RBC) [Mass/Vol] 33.6 g/dL Normal 29.9-35.2 [facility] Comment on above: Performed By: #### A 1C #### [facility] [address] [place] [address] Dr. Emilie Plascencia MCV (RBC) [Entitic vol] 87.3 fL Normal 81.0-99.0 [facility] Comment on above: Performed By: #### A 1C #### [facility] [address] [place] [address] Dr. Emilie Plascencia MONO # 0.5 103/ul Normal 0.3-0.8 [facility] Comment on above: Performed By: #### A 1C #### [facility] [address] [place] [address] Dr. Emilie Plascencia Monocytes/100 WBC (Bld) 6.9 % Normal 1.7-12.0 [facility] Comment on above: Performed By: #### A 1C #### [facility] [address] [place] [address] Dr. Emilie Plascencia NEUT # 4.2 103/ul Normal 1.4-6.5 [facility] Comment on above: Performed By: #### A 1C #### [facility] [address] [place] [address] Dr. Emilie Plascencia Neutrophils/100 WBC (Bld) 64.6 % Normal 43.0-75.0 [facility] Comment on above: Performed By: #### A 1C #### [facility] [address] [place] [address] Dr. Emilie Plascencia Platelet mean volume (Bld) [Entitic vol] 9.7 fL Normal 9.5-13.5 [facility] Comment on above: Performed By: #### A 1C #### [facility] [address] [place] [address] Dr. Emilie Plascencia PLT 256 103/ul Normal 150-450 [facility] Comment on above: Performed By: #### A 1C #### [facility] [address] [place] [address] Dr. Emilie Plascencia RBC 4.09 106/ul Critically low 4.20-5.40 [facility] Comment on above: Performed By: #### A 1C #### [facility] [address] [place] [address] Dr. Emilie Plascencia WBC 6.5 103/ul Normal 4.0-11.0 [facility] Comment on above: Performed By: #### A 1C #### [facility] [address] [place] [address] Dr. Emilie Plascencia ER URINE PROFILEon 3 Bilirubin Ql (U) Negative Normal NEGATIVE [facility] Comment on above: Performed By: #### E RUR #### [facility] [address] [place] [address] Dr. Emilie Plascencia Clarity (U) CLEAR Normal CLEAR [facility] Comment on above: Performed By: #### E RUR #### [facility] [address] [place] [address] Dr. Emilie Plascencia Color (U) LT. YELLOW Normal YELLOW [facility] Comment on above: Performed By: #### E RUR #### [facility] [address] [place] [address] Dr. Emilie Plascencia ERUAHD A micrscopic examination will be performed if indicated. Normal [facility] Comment on above: Performed By: #### E RUR #### [facility] [address] [address] [address] Emilie Plascencia Glucose Ql (U) Negative Normal NEGATIVE [facility] Comment on above: Performed By: #### E RUR #### [facility] [address] [address] [address] Emilie Plascencia Hemoglobin Ql (U) Negative Normal NEGATIVE [facility] Comment on above: Performed By: #### E RUR #### [facility] [address] [place] [address] Dr. Emilie Plascencia Ketones Ql (U) Negative Normal NEGATIVE [facility] Comment on above: Performed By: #### E RUR #### [facility] [address] [place] [address] Dr. Emilie Plascencia LEUKOCYTES Negative Normal NEGATIVE [facility] Comment on above: Performed By: #### E RUR #### [facility] [address] [place] [address] Dr. Emilie Plascencia Nitrite Ql (U) Negative Normal NEGATIVE [facility] Comment on above: Performed By: #### E RUR #### [facility] [address] [place] [address] Dr. Emilie Plascencia pH (U) 6.0 [pH] Normal 5-9 [facility] Comment on above: Performed By: #### E RUR #### [facility] [address] [place] [address] Dr. Emilie Plascencia SPEC GRAVITY 1.010 Normal 1.005-<=1.025 [facility] Comment on above: Performed By: #### E RUR #### [facility] [address] [place] [address] Dr. Emilie Plascencia UA PROTEIN Negative Normal NEGATIVE/ TRACE [facility] Comment on above: Performed By: #### E RUR #### [facility] [address] [place] [address] Dr. Emilie Plascencia UR MICRO IND NOT INDICATED Normal [facility] Comment on above: Performed By: #### E RUR #### [facility] [address] [place] [address] Dr. Emilie Plascencia Urobilinogen Qn (U) 0.2 {Barbara'U}/dL Normal 0.2 - 1. 0 [facility] Comment on above: Performed By: #### E RUR #### [facility] [address] [place] [address] Dr. Emilie Plascencia PREG QUANT HCGon 08-09-2022 HCG QUANT 40939 mIU/mL Normal [facility] Comment on above: Performed By: #### P REGQNT #### [facility] [address] [place] [address] Dr. Emilie Plascencia HCG RANGE SEE BELOW Normal [facility] Comment on above: Result Comment: 5-50 0.2-1 WEEK 50-500 1-2 WEEKS 100-5,000 2-3 WEEKS 500-10,000 3-4 WEEKS 1,000-50,000 4-5 WEEKS 10,000-100,000 5-6 WEEKS 15,000-200,000 6-8 WEEKS 10,000-100,000 2-3 MONTHS Performed By: #### P REGQNT #### [facility] [address] [place] [address] Dr. Emilie Plascencia PROF CHEM 8 (BAS METB)on Anion gap [Moles/Vol] 12.3 mmol/L Normal [facility] Comment on above: Performed By: #### A 1C #### [facility] [address] [place] [address] Dr. Emilie Plascencia Calcium [Mass/Vol] 8.9 mg/dL Normal 8.5-10.1 [facility] Comment on above: Performed By: #### A 1C #### [facility] [address] [place] [address] Dr. Emilie Plascencia Chloride [Moles/Vol] 107 mmol/L Normal 98-107 [facility] Comment on above: Performed By: #### A 1C #### [facility] [address] [place] [address] Dr. Emilie Plascencia CO2 [Moles/Vol] 26.6 mmol/L Normal 21.0-32.0 [facility] Comment on above: Performed By: #### A 1C #### [facility] [address] [address] [address] Emilie Plascencia Creatinine [Mass/Vol] 0.49 mg/dL Critically low 0.55-1.02 [facility] Comment on above: Performed By: #### A 1C #### [facility] [address] [address] [address] Emilie Plascencia EGFR-AF CUBAN >60 Normal >=[address] [facility] Comment on above: Performed By: #### A 1C #### [facility] [address] [address] [address] Emilie Plascencia EGFR-NON AF CUBAN >60 Normal >=60 [facility] Comment on above: Performed By: #### A 1C #### [facility] [address] [address] [address] Emilie Plascencia Glucose [Mass/Vol] 93 mg/dL Normal 74-106 [facility] Comment on above: Performed By: #### A 1C #### [facility] [address] [address] [address] Emilie Plascencia Potassium [Moles/Vol] 3.9 mmol/L Normal 3.5-5.1 [facility] Comment on above: Performed By: #### A 1C #### [facility] [address] [address] [address] Emilie Plascencia Sodium [Moles/Vol] 142 mmol/L Normal 136-145 [facility] Comment on above: Performed By: #### A 1C #### [facility] [address] [place] [address] Dr. Emilie Plascencia Urea nitrogen [Mass/Vol] 10.0 mg/dL Normal 7.0-18.0 [facility] Comment on above: Performed By: #### A 1C #### [facility] [address] [place] [address] Dr. Emilie Plascencia Urea nitrogen/Creatinine [Mass ratio] 20.4 mg/mg Normal [facility] Comment on above: Performed By: #### A 1C #### [facility] [address] [place] [address] Dr. Emilie Plascencia US PREG TVon 08-09-2022 US PREG TV EXAM: US PREG TV INDICATION: Abnormal vaginal bleeding. COMPARISON: None for this . TECHNIQUE: Transvaginal pelvic ultrasound was performed. FINDINGS: Single intrauterine . Mean sac diameter: 1.3 cm, 5 weeks, 3 days [place]-rump length: 0.3 cm, 5 weeks, 6 days [...] ANITA HATFIELD Date: 2022-08-09 09:59 Normal [facility] PREG QUANT HCGon 06-05-2022 HCG QUANT <1 Normal [facility] Comment on above: Performed By: #### P REGQNT #### [facility] [address] [place] [address] Dr. Emilie Plascencia HCG RANGE SEE BELOW Normal [facility] Comment on above: Result Comment: 5-50 0.2-1 WEEK 50-500 1-2 WEEKS 100-5,000 2-3 WEEKS 500-10,000 3-4 WEEKS 1,000-50,000 4-5 WEEKS 10,000-100,000 5-6 WEEKS 15,000-200,000 6-8 WEEKS 10,000-100,000 2-3 MONTHS Performed By: #### P REGQNT #### [facility] [address] [place] [address] Dr. Emilie Plascencia PREG QUANT HCGon 05-27-2022 HCG QUANT 14 mIU/mL Normal [facility] Comment on above: Performed By: #### P REGQNT #### [facility] [address] [place] [address] Dr. Emilie Plascencia HCG RANGE SEE BELOW Normal [facility] Comment on above: Result Comment: 5-50 0.2-1 WEEK 50-500 1-2 WEEKS 100-5,000 2-3 WEEKS 500-10,000 3-4 WEEKS 1,000-50,000 4-5 WEEKS 10,000-100,000 5-6 WEEKS 15,000-200,000 6-8 WEEKS 10,000-100,000 2-3 MONTHS Performed By: #### P REGQNT #### [facility] [address] [place] [address] Dr. Emilie Plascencia PREG QUANT HCGon 05-25-2022 HCG QUANT 17 mIU/mL Normal [facility] Comment on above: Performed By: #### A 1C #### [facility] [address] [place] [address] Dr. Emilie Plascencia HCG RANGE SEE BELOW Normal [facility] Comment on above: Result Comment: 5-50 0.2-1 WEEK 50-500 1-2 WEEKS 100-5,000 2-3 WEEKS 500-10,000 3-4 WEEKS 1,000-50,000 4-5 WEEKS 10,000-100,000 5-6 WEEKS 15,000-200,000 6-8 WEEKS 10,000-100,000 2-3 MONTHS Performed By: #### A 1C #### [facility] [address] [place] [address] Dr. Emilie Plascencia Vital Signs Date Time Vital Sign Value Performing Clinician Facility 04-10-2024 16:32-0500 Body height 157.5 cm [facility] Work Phone: [facility] 04-10-2024 16:32-0500 Body mass index (BMI) [Ratio] 33.65 kg/m2 [facility] Work Phone: [facility] 04-10-2024 16:32-0500 Body weight 83.46 kg [facility] Work Phone: [facility] 04-10-2024 16:32-0500 Diastolic blood pressure 70 mm[Hg] [facility] Work Phone: [facility] 04-10-2024 16:32-0500 Systolic blood pressure 118 mm[Hg] Olayinka Bourgeois Work Phone: [facility] 01-21-2024 14:120400 Body height 157.48 cm [facility] 01-21-2024 14:12-0400 Body mass index (BMI) [Ratio] 33.3 kg/m2 [facility] 01-21-2024 14:12-0400 Body temperature 98.9 [degF] [facility] 01-21-2024 14:12-0400 Body weight 82.55 kg [facility] 01-21-2024 14:12-0400 Diastolic blood pressure 81 mm[Hg] [facility] 01-21-2024 14:12-0400 Heart rate 76 /min [facility] 01-21-2024 14:12-0400 Respiratory rate 16 /min [facility] 01-21-2024 14:12-0400 SaO2% (BldA) [Mass fraction] 97 % [facility] 01-21-2024 14:12-0400 Systolic blood pressure 118 mm[Hg] [facility] 08-03-2023 09:35-0500 Body height 157.5 cm Pineda Rojas MD Work Phone: [facility] 08-03-2023 09:35-0500 Body mass index (BMI) [Ratio] 32.02 kg/m2 Pineda Rojas MD Work Phone: [facility] 08-03-2023 09:35-0500 Body weight 79.4 kg Pineda Rojas MD Work Phone: [facility] 08-03-2023 09:35-0500 Diastolic blood pressure 66 mm[Hg] Pineda Rojas MD Work Phone: [facility] 08-03-2023 09:35-0500 Heart rate 78 /min Pineda Rojas MD Work Phone: [facility] 08-03-2023 09:35-0500 Systolic blood pressure 138 mm[Hg] Pineda Rojas MD Work Phone: [facility] Encounters Encounter Date Encounter Type Care Provider Facility Start: 05-03-2024 End: 05-03-2024 Phys/qhp telephone evaluation 5-10 min Olayinka Christelle DO Work Phone: [facility] Comment on above: History of uterine s car due to previous surgery Start: 04-10-2024 End: 04-10-2024 Office outpatient visit 15 minutes Olayinka Christelle DO Work Phone: [facility] Comment on above: H/O section ; Nausea; History of anemia; PCOS (polycystic ovarian syndrome) Start: 04-10-2024 End: 04-10-2024 ambulatory OLAYINKA CHRISTELLE Not Available Start: 04-10-2024 End: 04-10-2024 Bamboo flowsheet Olayinka Christelle DO Work Phone: [facility] Start: 04-10-2024 End: 04-10-2024 Bamboo flowsheet Olayinka Christelle DO Work Phone: [facility] Start: 04-10-2024 End: 04-10-2024 Telephone encounter Chelo Ness RN [facility] Comment on above: Surgical Or Dental C learance Type 1 von Willebran d disease ([facility]); Menorrhagia with regular cycle Start: 03-08-2024 End: 03-08-2024 Telephone encounter Chelo Ness RN [facility] Comment on above: Med Refill Start: 03-06-2024 End: 03-06-2024 Telephone encounter Chelo Ness RN [facility] Start: 01-21-2024 End: 01-21-2024 ambulatory [facility] Work Phone: Start: 01-21-2024 End: 01-21-2024 Patient encounter procedure [facility] Work Phone: Start: 11-08-2023 End: 11-08-2023 ambulatory OLAYINKA CHRISTELLE Not Available Start: 08-24-2023 Documentation procedure [facility] Start: 08-03-2023 Orders Only Pineda Rojas MD Work Phone: [facility] [place] Comment on above: Iron deficiency (Keshia korina Dx); Iron malabsorption; Type 1 von Willebrand disease ([facility]) Start: 08-03-2023 End: 08-03-2023 Office outpatient visit 15 minutes Pineda Rojas MD Work Phone: [facility] Comment on above: Type 1 von Willebran d disease ([facility]) (Primary Dx); History of iron deficiency anemia [...] Td Vaccines (5 - Td or Tdap) [facility] Start: 11-04-2025 Screening for malign ant neoplasm of cervix Pap Smear [facility] Start: 10-18-2024 End: 10-18-2024 Patient encounter procedure 10/18/2024 3:00 PM EDT Office Visit [facility] [address] [place] [id number] Olayinka Bourgeois, DO [address] [place] [address] [facility] Start: 08-03-2024 Adult BMI Screening Adult BMI Screen ing [facility] Start: 08-03-2024 Depression Screening Depression Scre ening [facility] Start: 08-03-2024 Tobacco Screening Tobacco Screening [facility] Start: 05-02-2024 End: 05-02-2024 Patient encounter procedure 05/02/2024 8:00 AM EST Office Visit [facility] [address] [place] [id number] Olayinka Bourgeois, DO [address] [place] [address] [facility] Start: 04-10-2024 End: 04-10-2024 Patient encounter procedure 04/10/2024 3:20 PM EST Consult [facility] [address] [place] [id number] Olayinka Bourgeois, DO [address] [place] [address] Arrived [facility] Comment on above: Arrived Start: 04-10-2024 End: 04-10-2025 CBC W Auto Differential panel - Blood CBC and differential Lab Routine History of anemia PCOS (polycystic ovarian syndrome) Expected: 04/10/2024 (Approximate), Expires: 04/10/2025 [facility] Comment on above: Expected: 04/10/2024 (Approximate), Expires: 04/10/2025 Start: 04-10-2024 End: 04-10-2025 DHEA DHEA Lab Routine History of anemia PCOS (polycystic ovarian syndrome) Expected: 04/10/2024, Expires: 04/10/2025 [facility] Comment on above: Expected: 04/10/2024 , Expires: 04/10/2025 Start: 04-10-2024 End: 04-10-2025 DHEA-sulfate DHEA-sulfate Lab Routine History of anemia PCOS (polycystic ovarian syndrome) Expected: 04/10/2024 (Approximate), Expires: 04/10/2025 [facility] Comment on above: Expected: 04/10/2024 (Approximate), Expires: 04/10/2025 Start: 04-10-2024 End: 04-10-2025 Follicle stimulating hormone Follicle stimulating hormone Lab Routine History of anemia PCOS (polycystic ovarian syndrome) Expected: 04/10/2024 (Approximate), Expires: 04/10/2025 [facility] Comment on above: Expected: 04/10/2024 (Approximate), Expires: 04/10/2025 Start: 04-10-2024 End: 04-10-2025 hCG, quantitative, hCG, quantitative, Lab Routine History of anemia PCOS (polycystic ovarian syndrome) Expected: 04/10/2024 (Approximate), Expires: 04/10/2025 [facility] Work Phone: Comment on above: Expected: 04/10/2024 (Approximate), Expires: 04/10/2025 Start: 04-10-2024 End: 04-10-2025 Hemoglobin A1c/Hemoglobin.total in Blood Hemoglobin A1c Lab Routine History of anemia PCOS (polycystic ovarian syndrome) Expected: 04/10/2024 (Approximate), Expires: 04/10/2025 [facility] Comment on above: Expected: 04/10/2024 (Approximate), Expires: 04/10/2025 Start: 04-10-2024 End: 04-10-2025 Luteinizing hormone Luteinizing hormone Lab Routine History of anemia PCOS (polycystic ovarian syndrome) Expected: 04/10/2024 (Approximate), Expires: 04/10/2025 [facility] Comment on above: Expected: 04/10/2024 (Approximate), Expires: 04/10/2025 Start: 04-10-2024 End: 04-10-2025 Thyrotropin [Units/volume] in Serum or Plasma TSH Lab Routine History of anemia PCOS (polycystic ovarian syndrome) Expected: 04/10/2024 (Approximate), Expires: 04/10/2025 [facility] Comment on above: Expected: 04/10/2024 (Approximate), Expires: 04/10/2025 Start: 04-10-2024 End: 04-10-2025 Thyroxine (T4) free [Mass/volume] in Serum or Plasma T4, free Lab Routine History of anemia PCOS (polycystic ovarian syndrome) Expected: 04/10/2024 (Approximate), Expires: 04/10/2025 [facility] Comment on above: Expected: 04/10/2024 (Approximate), Expires: 04/10/2025 Start: 04-10-2024 End: 04-10-2025 US for US PELVIS-TRANSVAG IF INDICATED Imaging Routine History of anemia PCOS (polycystic ovarian syndrome) Expected: 04/10/2024 (Approximate), Expires: 04/10/2025 [facility] Comment on above: Expected: 04/10/2024 (Approximate), Expires: 04/10/2025 Start: 02-06-2024 Influenza vaccination Influenza Vacc ine [facility] Start: 10-20-2009 Adult BMI Follow Up Plan Adult BMI Follow Up Plan [facility] Immunizations Immunization Date Immunization Notes Care Provider Flako ortega 03-30-2023 RHO(D) immune globul in- IV or IM Pineda Rojas MD Work Phone: [facility] 02-12-2023 influenza, injectabl e, quadrivalent, preservative free Pineda Rojas MD Work Phone: [facility] 02-12-2023 RHO(D) immune globul in- IV or IM Pineda Rojas MD Work Phone: [facility] 02-12-2023 influenza virus vacc ine, unspecified formulation Chelo Ness RN [facility] 12-31-2022 RHO(D) immune globul in- IV or IM Pineda Rojas MD Work Phone: [facility] 12-31-2022 tetanus toxoid, redu sami diphtheria toxoid, and acellular pertussis vaccine, adsorbed Pineda Rojas MD Work Phone: [facility] 10-16-2020 RHO(D) immune globul in- IV or IM Pineda Rojas MD Work Phone: [facility] 09-30-2020 tetanus toxoid, redu sami diphtheria toxoid, and acellular pertussis vaccine, adsorbed iPneda Rojas MD Work Phone: [facility] 09-17-2020 influenza, injectabl e, quadrivalent, preservative free Pineda Rojas MD Work Phone: [facility] 01-27-2018 RHO(D) immune globul in- IV or IM Pineda Rojas MD Work Phone: [facility] 01-27-2018 tetanus toxoid, redu sami diphtheria toxoid, and acellular pertussis vaccine, adsorbed Pineda Rojas MD Work Phone: [facility] 12-30-2016 RHO(D) immune globul in- IV or IM Pineda Rojas MD Work Phone: [facility] 08-14-2016 influenza, injectabl e, quadrivalent, preservative free Pineda Rojas MD Work Phone: [facility] 05-04-2007 human papilloma viru s vaccine, quadrivalent Pineda Rojas MD Work Phone: [facility] 05-04-2007 meningococcal polysaccharide (groups A, C, Y and W-135) diphtheria toxoid conjugate vaccine (MCV4P) Pineda Rojas MD Work Phone: [facility] 12-23-2005 hepatitis A vaccine, adult dosage Pineda Rojas MD Work Phone: [facility] 12-23-2005 hepatitis A vaccine, pediatric/adolescent dosage, 2 dose schedule Pineda Rojas MD Work Phone: [facility] 12-23-2005 hepatitis B vaccine, adult dosage Pineda Rojas MD Work Phone: [facility] 2005 hepatitis B vaccine, adult dosage Pineda Rojas MD Work Phone: [facility] 2005 hepatitis B vaccine, pediatric or pediatric/adolescent dosage Pineda Rojas MD Work Phone: [facility] 2005 tetanus toxoid, redu sami diphtheria toxoid, and acellular pertussis vaccine, adsorbed Pineda Rojas MD Work Phone: [facility] 2005 varicella virus vaccine Pineda Rojas MD Work Phone: [facility] Payers Date Payer Category Payer Private Health Insurance [id number] 2023 Managed Care Other (unspecified) [facility] [id number] 2023 Private Health Insurance [id number] 5 2020 [facility] Subscriber Plan / Payer (Effective 2020-Present) Name: ErikMarylin Relation to Subscriber: Spouse Name: FRANCISCO FERMIN Date of : 1993 Address: [address] [place] [address] Payer ID: Not on file Type: Not on file Address: [address] [place] [id number] 5 2020 [employer] Edmundo Amyclarissa ld Managed Care - Other ANTHEM Member Subscriber Plan / Payer (Effective 2020-Present) Name: Marylin Fermin Relation to Subscriber: Spouse Name: FRANCISCO FERMIN Date of : 1993 (Home) Address: [address] [place] [address] Payer ID: [id number] (NAIC) Type: Not on file Address: [address] [place] [id number] 2020 Unknown ANTHEM BCBS OUT OF STATE PPO/TRUST [id number] 2020-Present [phone] [address] [place] [id number] 1991 Unknown [id number] 1991 Unknown [id number] 1991 Unknown [id number] 1991 Unknown [id number] 1991 Unknown [id number] 1991 Unknown [id number] 1991 Unknown [id number] 1991 Unknown [id number] 1959 Unknown [id number] 1959 Unknown [id number] Worker's Compensation [facility] t Ind [id number] Social History Date Type Detail Facility Start: 12-31-2022 End: 01-21-2024 Tobacco smoking status NHIS Never smoked tobacco (finding) [facility] Start: 1990 Sex Assigned At Female F [facility] Start: 11-08-2023 End: 04-10-2024 Alcoholic beverage intake Lifetime non-drinker (finding) [facility] Start: 07-17-2020 End: 11-08-2023 History of Social function [facility] Start: 07-17-2020 End: 11-08-2023 Tobacco use panel [facility] Start: 05-15-2021 Gender identity Identifies as female gender (finding) [facility] Start: 12-31-2022 End: 04-10-2024 Tobacco use and exposure Smokeless tobacco non-user [facility] Start: 08-03-2023 Alcohol intake Current non-dr community health educator of alcohol (finding) [facility] How hard is it for you to pay for the very basics like food, housing, medical care, and heating Hard [facility] Adolescent depressio n screening assessment 0 [facility] Start: 07-29-2020 Education 15 [facility] Start: 01-08-2015 Sex Female (finding) [facility] NEGATED: Highlighted rowStart: NINF History of tobacco use Passive smoker [facility] Clinical Notes 08-03-2023 to 05-03-2024 Olayinka [...] for a telehealth appointment. Patients Phone #: [phone] (mobile) Current Medications: has a current medication list which includes the following prescription(s): cholecalciferol, cholecalciferol, citalopram, cyanocobalamin, and . Medical History: Active Ambulatory Problems Diagnosis Date Noted Missed period 11/03/2022 Cystic fibrosis carrier 04/18/2020 Type 1 von Willebrand disease ([facility]/HCC) 07/01/2006 Diastasis recti 11/08/2023 H/O section 11/08/2023 Resolved Ambulatory Problems Diagnosis Date Noted Hematologic disorder in mother affecting 05/28/2020 Iron deficiency anemia of mother during 08/05/2020 Rh negative state in antepartum period, third trimester 09/16/2020 Past Medical History: Diagnosis Date CF (cystic fibrosis) ([facility]) Gestational HTN 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 Social [...] Olayinka Bourgeois DO documented in this encounter [facility] 04-10-2024 History of Present illness Narrative Reason [...] Rh negative mother Von Willebrand disease (CMS/HCC) Social History Tobacco Use Smoking status: Never [...] effect options for management. Documented by Kely Cnanon LPN on behalf of: Olayinka Bourgeois DO documented in this encounter [facility] 04-10-2024 Miscellaneous Notes Pre/ postop TXA documented in this encounter [facility] 04-10-2024 Telephone encounter Note Pre/ postop TXA [facility] 04-10-2024 Miscellaneous Notes Incoming patient message [...] pended to Dr. Rojas. Clearance faxed via [place]. documented in this encounter [facility] 04-10-2024 Telephone encounter Note Incoming patient message regarding surgery r/t a broken finger tomorrow, 04/11/24. Per Dr. Rojas's plan: TXA TID x 5 days, first dose being 1-2 hours prior to sx. Fax number for surgeon per patient message: LVM to patient to review plan and confirm pharmacy. Also to verify surgeon we are to fax clearance to. [facility] 04-10-2024 Telephone encounter Note PC from patient, confirmed pharmacy and reviewed plan. Patient verbalized understanding. Script pended to Dr. Rojas. Clearance faxed via [place]. [facility] 03-08-2024 Miscellaneous Notes PC to patient to confirm pharmacy for menses TXA refill. [facility] [place] is preferred pharmacy. Updated in [place]. documented in this encounter [facility] 03-08-2024 Telephone encounter Note PC to patient to confirm pharmacy for menses TXA refill. [facility] 03-08-2024 Telephone encounter Note [facility] [place] is preferred [facility]. Updated in [place]. [facility] 03-06-2024 Miscellaneous Notes PC to patient to follow up on MyChart message/ bruise photo. Patient denies the bruise being warm to touch, denies hematoma at site. States it's just painful. RN advised to ice bruise, avoid NSAIDs/ Aspirin for the time being and advised it'll take a few days to start to heal. Also advised if a hematoma does form to give the C a call back. Patient verbalized understanding. documented in this encounter [facility] 03-06-2024 Telephone encounter Note PC to patient to follow up on MyChart message/ bruise photo. Patient denies the bruise being warm to touch, denies hematoma at site. States it's just painful. RN advised to ice bruise, avoid NSAIDs/ Aspirin for the time being and advised it'll take a few days to start to heal. Also advised if a hematoma does form to give the C a call back. Patient verbalized understanding. [facility] 08-24-2023 History of Present illness Narrative Called and spoke with patient to scheduled iv iron on 08/18/23. She said she doesn't know if she can get off work and will call back to schedule. documented in this encounter [facility] 08-03-2023 History of Present illness Narrative Pt is here for 6 month follow up. Pt denies any bleeding issues. She reports being very dizzy the past couple of days and is having some neck pain. She is taking oral iron tablets and will need a refill. She has extreme fatigue. Images from the original note were not included. [facility] BENIGN HEMATOLOGY PEDIATRIC THROMBOPHILIA Dr.Dagmar Di Rojas OUTPATIENT FOLLOW-UP NOTE: [facility] Patient ID: Marylin Fermin, 32 y.o. female PCP: Amy Sullivan, COMPUTER DESIGNER-TEXTILE SCREEN PRINTER : 1990 CHIEF COMPLAINT: Chief Complaint Patient presents with Follow-up HISTORY OF PRESENT ILLNESS: Marylin Fermin is a 32 y.o. female with history of type 1 von willebrand disease who presents today for follow-up at the [facility] due to recent . She [...] 1 von Willebrand's disease. 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 [...] 12/29/2016 Performed by Mel Luz MD at [facility] OR REPEAT N/A 10/15/2020 Performed by Vinicius Rosario MD at [facility] OR REPEAT N/A 01/25/2018 Performed by Ariel Ford MD at [facility] OR REPEAT TUBAL LIGATION N/A 03/29/2023 Performed by Keisha Baugh MD at [facility] OR INCISION AND DRAINAGE 03/30/2023 PAST FAMILY [...] father were negative. SOCIAL HISTORY: Lives in [place], [place] with her family. 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 female with history of type 1 von willebrand disease who presents today for follow-up at the [facility] due to recent . 1. Type 1 von willebrand disease: Diagnosed based on low VWD levels (30% for Ristocetin at [facility]) in the setting of type [...] for menorrhagia in the past. - Our manager social media met with the patient today during this [...] year and PRN. Pineda Rojas MD Adult Hotel Concierge [facility] Pager: [phone] Pt is a 32 year old female with vWD, here today with her , and 3 children Agreeable to meet with sw, family remained in the room Marylin resides in the [facility] with her Francisco (not affected), daughter Maryan 2 (vWD) and son Josiah (vWD) brother Ventura (not tested). There are no major bleeding concerns, she is currently still breast feeding Ventura, and has not had a period. There are no upcoming surgeries. 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 No major financial concerns reported today, family seems able to meet basic needs of the home. Insurance: family has commercial insurance. Family has submitted financial documents for [facility] approval, and have been approved through [...] or [place]. No major psychosocial issues identified, encouraged particpation with [facility] [employer] activities, Camp, [email or web address], [employer] Day, etc. Parents will consider camp for Josiah Much support provided Isidro FRIAS documented in this encounter [facility] Evaluation note No assessment inform ation available [facility] Work Phone: Evaluation note Diagnosis H/O section Nausea Nausea alone History of anemia Personal history of diseases of blood and blood-forming organs PCOS (polycystic ovarian syndrome) Polycystic ovaries [facility] Diagnosis History of uterine scar due to previous surgery documented in this encounter [facility]* Diagnosis Iron deficiency- Primary Disorders of iron metabolism Iron malabsorption Other specified intestinal malabsorption Type 1 von Willebrand disease (CMS-HCC) Von Willebrand's disease documented in this encounter [facility] System[facility] note* Diagnosis Type 1 von Willebrand disease (CMS-HCC)- Primary Von Willebrand's disease History of iron deficiency anemia Personal history of diseases of blood and blood-forming organs documented in this encounter [facility]* Diagnosis Type 1 von Willebrand disease (CMS-HCC) Von Willebrand's disease Menorrhagia with regular cycle documented in this encounter [facility] SystemInstructionsNot on filedocumented in this encounter [facility] SystemInstructions* Attachments The following attachments cannot be sent through Care Everywhere. * Taking care of bruises (Irish) [facility] System[facility]ructionsNot on file documented in this encounterPro[facility] SystemInstructionsNot on file documented in this encounterPro[facility] SystemInstructionsNot on file documented in this [facility] SystemInstructionsNot on file documented in this encounterPro[facility] SystemInstructionsNot on file [facility] Summary Purpose Family History Relationship Condition Age at Onset Recorded Date/T nida father Unknown Advance Directives Advance Directive Response Recorded Date/ Time Advance Directives No January 21, 2024 2:03pm Latest Code Status on File Code Status Date Activated Date Inactivated Comments Full Code 03/29/2023 12:13 PM 03/31/2023 3:01 PM Code Status History Code Status Date Activated Date Inactivated Comments Full Code 02/12/2023 6:12 PM 02/13/2023 12:01 PM Full Code 10/15/2020 1:10 AM 10/17/2020 2:44 PM Full Code 01/25/2018 10:45 AM 01/28/2018 3:36 PM Full Code 01/25/2018 10:04 AM 01/25/2018 10:45 AM Date Activated Date Inactivated Comments 03/29/2023 12:13 [...] content) DATE CREATED AUTHOR 11/13/2022 [facility] DATE CREATED AUTHOR AUTHOR'S ORGANIZ ATION 04/11/2024 [facility] dical Specialists [facility] Care Teams (unrecognized sec tion and content) Team Status: Active Member Role Status Dates Services Family Health Primary Care Provider Active Team Status: Inactive Member Role Status Dates Services Family [facility] Primary Care Provider Active Start: January 21, 2024 End: January 21, 2024 Fiona Smith APRN Attending Provider Active Start: January 21, 2024 End: January 21, 2024 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 Start Date End Date Amy Sullivan APRN-CNP [address] [place] [address] PCP - General Family Medicine 05/28/20 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 Start Date End Date Amy Sullivan APRN-CNP [address] [place] [address] PCP - General Family Medicine 05/28/20 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 Start Date End Date Amy Sullivan APRN-CNP [address] [place] [address] PCP - General Family Medicine 05/28/20 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 Start Date End Date Amy Sullivan APRN-CNP [address] [place] [address] PCP - General Family Medicine 05/28/20 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 Start Date End Date Amy Sullivan APRN-CNP [address] [place] [address] PCP - General Family Medicine 05/28/20 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 Start Date End Date [facility] [address] [place] [address] PCP - General Acute Hospital Medicine 05/28/20 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 Start Date End Date [facility] [address] [place] [address] PCP - [facility] 05/28/20 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 Start Date End Date [facility] [address] [place] [address] PCP - [facility] 05/28/20 Goals (unrecognized section and content) Goals may be documented in a n alternate sectionNot on filedocumented as of this encounterNot on filedocumented as of this encounterNot on filedocumented as of this encounterNot on filedocumented as of this encounterNot on filedocumented as of this encounterNot on filedocumented as of this encounterNot on filedocumented as of this encounterNot on filedocumented as of this encounter Reason for Visit (unrecogniz ed section and content) Reason Comments Menstrual Problem Reason Comments Follow-up Reason Onset Date Comments Med Refill 03/08/2024 Reason Onset Date Comments Surgical Or Dental Clearance 04/10/2024 Reason Onset Date Comments Med Refill 04/10/2024 FOR RECORDS PERTAINING TO PATIENTS WHO ARE [...] BE BASED ON THE PRIMARY CLINICAL RECORDS. [facility] [employer] [facility]. provides no warranty or guarantee of the accuracy or completeness of information in this document.
[2024-11-03 17:08] LABS: Age Gdln ACOG Testing Note (.); HPV Aptima Negative (Negative); IGP, Aptima HPV, rfx 16/18,45 Note (.)
== END 2024-10-31 19:25 | disposition home or self-care (01) ==
LOC: LAB 19:24
PROVIDERS: Visit Provider Obstetrics & Gynecology
DX: Z01.419 Encounter for gynecological examination (general) (routine) without abnormal findings (principal)
CPT/HCPCS: 87624; 88175

== ENCOUNTER 2025-03-21 16:13 | Outpatient (OUT) | payer OTHER, BC, SELFPAY ==
--- OUTSIDE RECORDS SUMMARY | 2025-03-21 16:18 | XMS_ITS | CCD ---
Author Organization [facility] Care Team Providers Care Psychiatric Social Worker Supervisor Name Role Phone CHRISTELLE ., DR BHAGAT Admitting Unavailable REQUEST, DR MCCALL LISTED Primary Care Unavaila ble CHRISTELLE ., DR BHAGAT Attending Unavailable CHRISTELLE ., DR BHAGAT Consulting Unavailable REQUEST, DR CAL LISTED Primary Care Unavaila ble WEST, DR KEISHA Alvarez Consulting Unavailable CHRISTELLE ., DR BHAGAT Attending Unavailable CHRISTELLE ., DR BHAGAT Admitting Unavailable CHRISTELLE ., DR BHAGAT Consulting Unavailable CHRISTELLE ., DR BHAGAT Attending Unavailable CHRISTELLE ., DR BHAGAT Consulting Unavailable CHRISTELLE ., DR BHAGAT Admitting Unavailable REQUEST, DR MCCALL LISTED Primary Care Unavaila ble BALDEMAR FLETCHER Attending Unavailable BALDEMAR FLETCHER Consulting Unavailable BALDEMAR FLETCHER Admitting Unavailable REQUEST, DR MCCALL LISTED Primary Care Unavaila ble ANITA HATFIELD Consulting Unavailable REQUEST, DR MCCALL LISTED Primary Care Unavaila ble CHRISTELLE ., DR BHAGAT Attending Unavailable CHRISTELLE ., DR BHAGAT Consulting Unavailable CHRISTELLE ., DR BHAGAT Admitting Unavailable Unavailable Primary Care Provider Unavailabl e Amy Bernard Primary Care Provider OLAYINKA BOURGEOIS Attending Unavailable CHRISTELLEOLAYINKA Zeng Attending Unavailable CHRISTELLEOLAYINKA SCHMITZ Attending Unavailable Anglim Amy MARTINS Primary Care Provider Allergies Allergy Classification Reported Allergen(s) Allergy Type Date of Onset Reaction(s) Facility (2 sources) NSAIDs Drug allergy (disorder) 2 [facility] Repository (8 sources) Non-steroidal anti-inflammator y agent Drug Intolerance 2 [facility] Work Phone: (8 sources) Non-steroidal anti-inflammator y agent Propensity to adverse reactions to drug 2 [facility] Work Phone: Medications Current Medications Medication Drug Class(es) Dates Sig (Normalized) Sig (Original) acetaminophen 500 mg oral capsule (10 sources) Start: 01-21-2024 take 1000 mg by mouth every six hours Acetaminophen Active 1000 MG PO Every 6 hours January 21, 2024 12:00am Start: 05-13-2023 take 2 tablets by mo uth every six hours acetaminophen (TYLENOL EXTRA STRENGTH) 500 mg tablet Take 2 tablets (1,000 mg total) by mouth every 6 (six) hours. 60 tablet 1 05/13/2023 Active cholecalciferol 0.1 mg oral capsule (20 sources) Vitamin D Start: 06-18-2022 take 1 capsule by mouth once in the morning cholecalciferol, vitamin D3, (VITAMIN D3) 100 mcg (4,000 unit) capsule Indications: Vitamin D deficiency Take 4,000 Units by mouth in the morning. 30 capsule 11 06/18/2022 Active cholecalciferol (Vitamin D-3) 25 MCG (1000 UT) capsule Vitamin D3 Active End: 10-31-2024 Cholecalciferol 10 MCG (400 UNIT) chewable tablet Cholecalciferol 10/31/2024 Discontinued citalopram 20 mg oral tablet (7 sources) Serotonin Reuptake Inhibitor Start: 04-12-2023 End: 04-11-2024 take 1 tablet by mouth in the morning citalopram (CeleXA) 20 MG tablet Indications: anxiety Take 1 tablet (20 mg) by mouth in the morning. 30 tablet 11 04/12/2023 Active ferrous sulfate 325 mg oral tablet (10 sources) Start: 03-31-2023 End: 08-02-2024 take 1 tablet by mouth once daily at breakfast ferrous sulfate 325 (65 FE) mg tablet Take 1 tablet (325 mg total) by mouth daily with breakfast. 90 tablet 3 08/03/2023 Active folic acid 1 mg oral tablet (9 sources) Start: 01-06-2023 take 1 tablet by mouth in the morning folic acid (FOLVITE) 1 mg tablet Indications: Folate deficiency TAKE 1 TABLET (1 MG TOTAL) BY MOUTH IN THE MORNING 30 tablet 11 01/06/2023 Active 25/iron fum/folic/dha (-1 ORAL) (9 sources) 25/iron fum/folic/dha (-1 ORAL) Take by mouth. Active 25/iron fum/folic/dha (-1 ORAL) Take by mouth. 0 Active 27-1 MG tablet (8 sources) 27-1 MG tablet 1 (one) time each day at the same time. Active tranexamic acid 650 mg oral tablet (5 sources) Antifibrinolytic Agent Start: 4 End: 4 tranexamic acid (LYSTEDA) 650 mg tablet Indications: Type 1 von Willebrand disease (CMS-HCC) , Menorrhagia with regular cycle Take 2 tablets (1,300 mg total) by mouth 3 (three) times a day for 5 days. First dose: 1-2 hours pre-op, then every 8 hours for 5 days postop. 30 tablet 04/10/2024 Active vitamin b12 2.5 mg oral tablet (17 sources) Vitamin B12 Start: 3 take 1 [...] 3 03/01/2023 08/03/2023 Discontinued polyethylene glycol 3350 20955 mg powder for oral solution (1 source) [...] 07-01-2006 Resolved: 04-04-2019 01-21-2024 Chronic Menstrual disorders (14 sources) Irregular menstruation, unspecified; Translations: [Missed period] Onset: 06-09-2022 Chronic Nausea and vomiting (1 source) Nausea; Translations: [Nausea] 04-10-2024 Episodic Other complications of (17 sources) Iron deficiency anemia; Translations: [Anemia complicating , unspecified trimester] Onset: 08-05-2020 Resolved: 03-30-2023 05-10-2023 Chronic Other endocrine disorders (1 source) Polycystic ovary syndrome; Translations: [Polycystic ovarian syndrome] 04-10-2024 Chronic Other gastrointestinal disorders (10 sources) Malabsorption - iron; Translations: [Intestinal malabsorption, [...] Documented Date Episodic/Chronic Contraceptive and procreative management (18 sources) Sterilization requested; Translations: [Encounter for sterilization] Onset: 12-30-2016 Resolved: 04-04-2019 12-03-2022 Episodic Deficiency and other anemia (9 sources) Folate deficiency anemia due to dietary causes; Translations: [Dietary folate deficiency anemia] Onset: 12-31-2022 02-12-2023 Episodic Genitourinary symptoms and ill-defined conditions (9 sources) Decreased urine output; Translations: [Anuria and oliguria] Onset: 12-29-2016 Resolved: 04-04-2019 08-24-2022 Episodic Hemorrhage during ; abruptio placenta; placenta previa (4 sources) Hemorrhage in early , unspecified; Translations: [HEMORRHAGE EARLY UNS] Onset: 08-09-2022 Episodic Hypertension complicating ; childbirth and the puerperium (9 sources) -induced hypertension; Translations: [Gestational [-induced] hypertension without significant proteinuria, unspecified trimester] Onset: 12-29-2016 Resolved: 04-04-2019 08-24-2022 Episodic Liveborn (9 sources) Born by section; Translations: [Single liveborn infant, delivered by ] Onset: 01-25-2018 Resolved: 04-04-2019 08-24-2022 Episodic Mood disorders (9 sources) Mood disorders Onset: 08-03-2023 08-03-2023 Nonmalignant breast conditions (9 sources) Lump in left breast; Translations: [Unspecified lump in the left breast, unspecified quadrant] Onset: 04-18-2020 Resolved: 05-28-2020 05-28-2020 Episodic Nutritional deficiencies (10 sources) Iron deficiency; Translations: [Iron deficiency] Onset: 08-03-2023 08-03-2023 Episodic Other complications of (17 sources) Complication occurring during ; Translations: [Other diseases of the blood and blood-forming organs and certain disorders involving the immune mechanism complicating , unspecified trimester] Onset: 05-28-2020 Resolved: 03-30-2023 05-10-2023 Episodic Other complications of (17 sources) RhD negative; Translations: [Other specified related conditions, third trimester] Onset: 09-16-2020 Resolved: 03-30-2023 05-10-2023 Episodic Other connective tissue disease (8 sources) Diastasis recti; Translations: [Separation of muscle [...] trimester] Onset: 12-28-2016 Resolved: 03-04-2023 Episodic Previous (9 sources) ; Translations: [Maternal care for unspecified type scar from previous delivery] Onset: 04-18-2020 Resolved: 10-18-2020 10-18-2020 Episodic Residual codes; unclassified (1 source) Less than 8 weeks gestation of ; Translations: [< 8 WEEKS GESTATION ] Onset: 08-11-2022 Episodic Residual codes; unclassified (17 sources) Carrier of cystic fibrosis gene mutation; 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 [facility] Comment on above: TESTS RESULT FLAG UN ITS REF RANGE LAB Clinician Provided Cytology Information Source.............Cervix;Endocervix No. of containers..01 ThinPrep Vial Age Algo ACOG Lissa... 31 01 FLAG LEGEND: L-Low Normal,H-High Normal,LL-Alert Low,HH-Alert High <-Panic Low,>-Panic High,A-Abnormal,AA-Critical Abnormal Performed at: 01 =G [address] [id number] Sandra Almodovar MD, HPV APTIMA Negative Negative [facility] Comment on above: This nucleic acid am plification test detects fourteen high- risk HPV types (16,18,31,33,35,39,45,51,52,56,58,59,66,68) without differentiation. Performed at: =G - [facility] [id number] [employer] Operator: Sandra Almodovar MD, Phone: [phone] Performed at: - [facility] [id number] [facility] Operator: Sandra Almodovar MD, Phone: [phone] IGP, APTIMA HPV, RFX 16/18,45 Note . [facility] Comment on above: TESTS RESULT FLAG UN ITS REF RANGE LAB DIAGNOSIS: 02 NEGATIVE FOR INTRAEPITHELIAL LESION OR MALIGNANCY. Specimen adequacy: 02 Satisfactory for evaluation. Endocervical and/or squamous metaplastic cells (endocervical component) are present. Performed by: Dayanara Valentine, Comptroller (ASCP) . 02 Note: Note 02 The Pap smear is a screening test designed to aid in the detection of premalignant and malignant conditions of the uterine cervix. It is not a diagnostic procedure and should not be used as the sole means of detecting cervical cancer. Both false-positive and false-negative reports do occur. Test Methodology: Note 02 This liquid based ThinPrep(R) pap test was screened with the use of an image guided system. HPV Genotype Reflex Note 02 Criteria not met, HPV Genotype not performed. FLAG LEGEND: L-Low Normal,H-High Normal,LL-Alert Low,HH-Alert High <-Panic Low,>-Panic High,A-Abnormal,AA-Critical Abnormal Performed at: [address] [facility] [address] [place] [address] Sandra Almodovar MD, BRUSH-SPATULA CERVIX ENDOCERVIX [facility] Urinalysis macro (dipstick) panel (U)on 10-31-2024 Bilirubin, UA Negative Negative - 4(70) +++ mg/dL [facility] Blood, UA Negative Negative - 50 Brendan/mcL [facility] Clarity, UA Clear [facility] Color, UA Yellow [facility] Glucose, UA Negative Negative - 1999(110) ++++ mg/dL [facility] Interpretation and review of laboratory results Normal [facility] Ketones, UA Negative Negative - 160(16) ++++ mg/dL [facility] Leukocytes, UA Negative Negative - 500+++ Poncho/mcL [facility] Nitrite, UA Negative Negative - Positive [facility] pH, UA 7 5 - 9 [facility] Protein, UA Negative Negative - 1999(20) ++++ mg/dL [facility] Spec Grav, UA 1.025 1 - 1.03 [facility] Urobilinogen, UA 0.2 0.2 - 12 mg/dL [facility] CBC auto differentialon 07-09 Basophils (Bld) [#/Vol] 0.0 10*3/uL [facility] Basophils/100 WBC (Bld) 0.7 % [facility] Eosinophils (Bld) [#/Vol] 0.1 10*3/uL [facility] Eosinophils/100 WBC (Bld) 2.0 % [facility] Erythrocyte distribution width (RBC) [Ratio] 13.8 % 11.5 - 15.0 % [facility] Hematocrit (Bld) [Volume fraction] 41.2 % 35 - 47 % [facility] Hemoglobin (Bld) [Mass/Vol] 13.9 g/dL 11.7 - 15.5 g/dL [facility] Lymphocytes (Bld) [#/Vol] 1.7 10*3/uL [facility] Lymphocytes/100 WBC (Bld) 32.1 % [facility] MCH (RBC) [Entitic mass] 29.3 pg 27 - 34 pg [facility] MCHC (RBC) [Mass/Vol] 33.8 g/dL 32 - 36 g/dL [facility] MCV (RBC) [Entitic vol] 87 fL 80 - 100 fL [facility] Monocytes (Bld) [#/Vol] 0.6 10*3/uL [facility] Monocytes/100 WBC (Bld) 10.6 % [facility] Neutrophils (Bld) [#/Vol] 2.9 10*3/uL [facility] Neutrophils/100 WBC (Bld) 54.6 % [facility] Platelet mean volume (Bld) [Entitic vol] 8.4 fL 7 - 12 fL [facility] Platelets (Bld) [#/Vol] 244 10*3/uL [facility] RBC (Bld) [#/Vol] 4.75 10*6/uL [facility] WBC corrected for nucl RBC Auto (Bld) [#/Vol] 5.4 [facility] Cobalamin (Vitamin B12) [Mas s/Vol]on 08-03-2023 [facility] Ferritinon 08-03-2023 Ferritin [Mass/Vol] 39 ng/mL 11 - 307 ng/mL [facility] Ferritin [Mass/Vol]on 2023 [facility] Iron and TIBCon 08-03-2023 Interpretation and review of laboratory results Abnormal [facility] Iron [Mass/Vol] 59 ug/dL 50 - 170 ug/dL [facility] Iron binding capacity [Mass/Vol] 414 ug/dL 250 - 425 ug/dL [facility] Iron saturation [Mass fraction] 14 Low [facility] Vitamin B12on 08-03-2023 Cobalamin (Vitamin B12) [Mass/Vol] 275 pg/mL 180 - 914 pg/mL [facility] HEP B SURFACE ANTIGEN SCREEN on 09-08-2022 HBsAg Screen Negative Normal Negative [facility] Comment on above: Performed By: #### A 1C #### [facility] [address] [place] [address] Dr. Emilie Plascencia HEPATITIS C VIRUS AB W/ REFL EX QUANTon 09-08-2022 HCV AB Non-Reactive Normal Non Reactive [facility] Comment on above: Performed By: #### H CVPCRR #### [facility] [address] [place] [address] Dr. Emilie Plascencia Interpretation: Comment Normal [facility] Comment on above: Result Comment: Not infected with HCV unless early or acute infection is suspected (which may be delayed in an immunocompromised individual), or other evidence exists to indicate HCV infection. Performed By: #### H CVPCRR #### [facility] [address] [place] [address] Dr. Emilie Plascencia HIV 1 AND 2 WITH REFLEXon HIV Screen 4th Generation wRfx Non-Reactive Normal Non Reactive [facility] Comment on above: Result Comment: HIV Negative HIV-1/HIV-2 antibodies and HIV-1 p24 antigen were NOT detected. There is no laboratory evidence of HIV infection. Performed By: #### H IV12 #### [facility] [address] [place] [address] Dr. Emilie Plascencia RPR QUANTon 09-08-2022 Rapid Plasma Reagin, Quant Non-Reactive Normal NonRea<1:1 [facility] Comment on above: Result Comment: Yumi bernard Note: This test does not meet current guidelines for screening and diagnosis of syphilis. This test is intended for following treatment response in patients being treated for syphilis infection. To screen for syphilis infection, a reflex cascade that includes both RPR and a treponema-specific assay should be utilized, such as Treponema pallidum (Syphilis) Screening [place] (733227) or Rapid Plasma Reagin (RPR) Test With Reflex to Quantitative RPR and Confirmatory Treponema pallidum Antibodies (190818). Performed By: #### A 1C #### [facility] [address] [place] [address] Dr. Emilie Plascencia RUBELLA AB IGGon 09-08-2022 Rubella Antibodies, IgG 1.82 index Normal Immune >0.99 [facility] Comment on above: Result Comment: Non- immune <0.90 Equivocal 0.90 - 0.99 Immune >0.99 Performed By: #### R UBIGG #### [facility] [address] [place] [address] Dr. Emilie Plascencia BOX TEST SENT OUTon 09-06-19 SENT TO REF LAB 09/05/2022 Normal [facility] Comment on above: Performed By: #### A 1C #### [facility] [address] [place] [address] Dr. Emilie Plascencia CBC AUTO DIFFon 09-05-2022 BASO # 0.0 103/ul Normal 0.0-0.1 [facility] Comment on above: Performed By: #### C BC #### [facility] [address] [place] [address] Dr. Emilie Plascencia Basophils/100 WBC (Bld) 0.5 % Normal 0.2-2.0 [facility] Comment on above: Performed By: #### C BC #### [facility] [address] [place] [address] Dr. Emilie Plascencia EO # 0.1 103/ul Normal 0.0-0.7 [facility] Comment on above: Performed By: #### C BC #### [facility] [address] [place] [address] Dr. Emilie Plascencia Eosinophils/100 WBC (Bld) 1.2 % Normal 0.9-7.0 [facility] Comment on above: Performed By: #### C BC #### [facility] [address] [place] [address] Dr. Emilie Plascencia Erythrocyte distribution width (RBC) [Ratio] 12.8 % Normal 11.0-15.0 [facility] Comment on above: Performed By: #### C BC #### [facility] [address] [place] [address] Dr. Emilie Plascencia Hematocrit (Bld) [Volume fraction] 39.1 % Normal 36.0-48.0 [facility] Comment on above: Performed By: #### C BC #### [facility] [address] [place] [address] Dr. Emilie Plascencia Hemoglobin (Bld) [Mass/Vol] 12.9 g/dL Normal 12.0-16.0 [facility] Comment on above: Performed By: #### C BC #### [facility] [address] [place] [address] Dr. Emilie Plascencia IG # 0.04 10e3/ul Critically high 0.00-0.03 [facility] Comment on above: Performed By: #### C BC #### [facility] [address] [place] [address] Dr. Emilie Plascencia IG % 0.5 % Normal 0.0-0.5 [facility] Comment on above: Performed By: #### C BC #### [facility] [address] [place] [address] Dr. Emilie Plascencia LYMPH # 1.9 103/ul Normal 1.2-3.8 [facility] Comment on above: Performed By: #### C BC #### [facility] [address] [place] [address] Dr. Emilie Plascencia Lymphocytes/100 WBC (Bld) 23.7 % Normal 20.5-60.0 [facility] Comment on above: Performed By: #### C BC #### [facility] [address] [place] [address] Dr. Emilie Plascencia MANUAL DIFF REQ NO Normal [facility] Comment on above: Performed By: #### C BC #### [facility] [address] [place] [address] Dr. Emilie Plascencia MCH (RBC) [Entitic mass] 29.4 pg Normal 26.7-34.0 [facility] Comment on above: Performed By: #### C BC #### [facility] [address] [place] [address] Dr. Emilie Plascencia MCHC (RBC) [Mass/Vol] 33.0 g/dL Normal 29.9-35.2 [facility] Comment on above: Performed By: #### C BC #### [facility] [address] [place] [address] Dr. Emilie Plascencia MCV (RBC) [Entitic vol] 89.1 fL Normal 81.0-99.0 [facility] Comment on above: Performed By: #### C BC #### [facility] [address] [place] [address] Dr. Emilie Plascencia MONO # 0.5 103/ul Normal 0.3-0.8 [facility] Comment on above: Performed By: #### C BC #### [facility] [address] [place] [address] Dr. Emilie Plascencia Monocytes/100 WBC (Bld) 6.7 % Normal 1.7-12.0 [facility] Comment on above: Performed By: #### C BC #### [facility] [address] [place] [address] Dr. Emilie Plascencia NEUT # 5.4 103/ul Normal 1.4-6.5 [facility] Comment on above: Performed By: #### C BC #### [facility] [address] [place] [address] Dr. Emilie Plascencia Neutrophils/100 WBC (Bld) 67.4 % Normal 43.0-75.0 [facility] Comment on above: Performed By: #### C BC #### [facility] [address] [place] [address] Dr. Emilie Plascencia Platelet mean volume (Bld) [Entitic vol] 10.3 fL Normal 9.5-13.5 [facility] Comment on above: Performed By: #### C BC #### [facility] [address] [place] [address] Dr. Emilie Plascencia PLT 284 103/ul Normal 150-450 [facility] Comment on above: Performed By: #### C BC #### [facility] [address] [place] [address] Dr. Emilie Plascencia RBC 4.39 106/ul Normal 4.20-5.40 [facility] Comment on above: Performed By: #### C BC #### [facility] [address] [place] [address] Dr. Emilie Plascencia WBC 8.0 103/ul Normal 4.0-11.0 [facility] Comment on above: Performed By: #### C BC #### [facility] [address] [place] [address] Dr. Emilie Plascencia CULTURE URINEon 09-05-2022 CULTURE URINE Culture Observations : LIGHT GROWTH OF MIXED GENITAL ESCOBAR. NO POTENTIAL PATHOGENS SEEN. Normal [facility] Comment on above: Performed By: #### A 1C #### [facility] [address] [place] [address] Dr. Emilie Plascencia GLYCOHEMOGLOBIN A1Con 2022 ADA RECOMMENDATION SEE BELOW Normal [facility] [place] Comment on above: Result Comment: ADA RECOMMENDED LIMIT 4.0 - 6.0 ADA THERAPEUTIC TARGET < 7.0 ACTION SUGGESTED > 7.0 Performed By: #### A 1C #### [facility] [address] [place] [address] Dr. Emilie Plascencia Glucose [Mass/Vol] 97 mg/dL Normal [facility] [place] Comment on above: Performed By: #### A 1C #### [facility] [address] [place] [address] Dr. Emilie Plascencia HbA1c (Bld) [Mass fraction] 5.0 % Normal 4.5-6.2 [facility] Comment on above: Performed By: #### A 1C #### [facility] [address] [place] [address] Dr. Emilie Plascencia TSHon 09-05-2022 TSH 0.330 uIU/mL Critically low 0.358-3.740 [facility] Comment on above: Performed By: #### T SH #### [facility] [address] [place] [address] Dr. Emilie Plascencia TYPE AND SCREENon 09-05-2022 TYPE AND SCREEN Negative Normal [facility] Comment on above: Performed By: #### A 1C #### [facility] [address] [place] [address] Dr. Emilie Plascencia US PREG TVon 09-03-2022 [...] KEISHA KENT Date: 2022-09-03 15:33 Normal [facility] CBC AUTO DIFFon 08-09-2022 BASO # 0.0 103/ul Normal 0.0-0.1 [facility] Comment on above: Performed By: #### A 1C #### [facility] [address] [place] [address] Dr. Emilie Plascencia Basophils/100 WBC (Bld) 0.3 % Normal 0.2-2.0 [facility] Comment on above: Performed By: #### A 1C #### [facility] [address] [place] [address] Dr. Emilie Plascencia EO # 0.1 103/ul Normal 0.0-0.7 [facility] Comment on above: Performed By: #### A 1C #### [facility] [address] [place] [address] Dr. Emilie Plascencia Eosinophils/100 WBC (Bld) 1.4 % Normal 0.9-7.0 [facility] Comment on above: Performed By: #### A 1C #### [facility] [address] [place] [address] Dr. Emilie Plascencia Erythrocyte distribution width (RBC) [Ratio] 12.7 % Normal 11.0-15.0 [facility] Comment on above: Performed By: #### A 1C #### [facility] [address] [place] [address] Dr. Emilie Plascencia Hematocrit (Bld) [Volume fraction] 35.7 % Critically low 36.0-48.0 [facility] Comment on above: Performed By: #### A 1C #### [facility] [address] [place] [address] Dr. Emilie Plascencia Hemoglobin (Bld) [Mass/Vol] 12.0 g/dL Normal 12.0-16.0 [facility] Comment on above: Performed By: #### A 1C #### [facility] [address] [place] [address] Dr. Emilie Plascencia IG # 0.01 10e3/ul Normal 0.00-0.03 [facility] Comment on above: Performed By: #### A 1C #### [facility] [address] [place] [address] Dr. Emilie Plascencia IG % 0.2 % Normal 0.0-0.5 [facility] Comment on above: Performed By: #### A 1C #### [facility] [address] [place] [address] Dr. Emilie Plascencia LYMPH # 1.7 103/ul Normal 1.2-3.8 [facility] Comment on above: Performed By: #### A 1C #### [facility] [address] [place] [address] Dr. Emilie Plascencia Lymphocytes/100 WBC (Bld) 26.6 % Normal 20.5-60.0 [facility] Comment on above: Performed By: #### A 1C #### [facility] [address] [place] [address] Dr. Emilie Plascencia MANUAL DIFF REQ NO Normal [facility] Comment on above: Performed By: #### A 1C #### [facility] [address] [place] [address] Dr. Emilie Plascencia MCH (RBC) [Entitic mass] 29.3 pg Normal 26.7-34.0 [facility] Comment on above: Performed By: #### A 1C #### [facility] [address] [place] [address] Dr. Emilie Plascencia MCHC (RBC) [Mass/Vol] 33.6 g/dL Normal 29.9-35.2 [facility] Comment on above: Performed By: #### A 1C #### [facility] [address] [place] [address] Dr. Emilie Plascencia MCV (RBC) [Entitic vol] 87.3 fL Normal 81.0-99.0 [facility] Comment on above: Performed By: #### A 1C #### [facility] [address] [address] [address] Emilie Plascencia MONO # 0.5 103/ul Normal 0.3-0.8 [facility] Comment on above: Performed By: #### A 1C #### [facility] [address] [place] [address] Dr. Emilie Plascencia Monocytes/100 WBC (Bld) 6.9 % Normal 1.7-12.0 [facility] Comment on above: Performed By: #### A 1C #### [facility] [address] [place] [address] Dr. Emilie Plascencia NEUT # 4.2 103/ul Normal 1.4-6.5 [facility] Comment on above: Performed By: #### A 1C #### [facility] [address] [place] [address] Dr. Emilie Plascencia Neutrophils/100 WBC (Bld) 64.6 % Normal 43.0-75.0 [facility] Comment on above: Performed By: #### A 1C #### [facility] [address] [place] [address] Dr. Emilie Plascencia Platelet mean volume (Bld) [Entitic vol] 9.7 fL Normal 9.5-13.5 [facility] Comment on above: Performed By: #### A 1C #### [facility] [address] [place] [address] Dr. Emilie Plascencia PLT 256 103/ul Normal 150-450 [facility] Comment on above: Performed By: #### A 1C #### [facility] [address] [place] [address] Dr. Emilie Plascencia RBC 4.09 106/ul Critically low 4.20-5.[address] [facility] Comment on above: Performed By: #### A 1C #### [facility] [address] [place] [address] Dr. Emilie Plascencia WBC 6.5 103/ul Normal 4.0-11.0 [facility] Comment on above: Performed By: #### A 1C #### [facility] [address] [place] [address] Dr. Emilie Plascencia ER URINE PROFILEon 3 Bilirubin Ql (U) Negative Normal NEGATIVE [facility] Comment on above: Performed By: #### E RUR #### [facility] [address] [place] [address] Dr. Emilie Plascencia Clarity (U) CLEAR Normal CLEAR [facility] Comment on above: Performed By: #### E RUR #### [facility] [address] [place] [address] Dr. Emilie Plascencia Color (U) LT. YELLOW Normal YELLOW [facility] Comment on above: Performed By: #### E RUR #### [facility] [address] [place] [address] Dr. Emilie Plascencia ERUANGELICA A micrscopic examination will be performed if indicated. Normal [facility] Comment on above: Performed By: #### E RUR #### [facility] [address] [place] [address] Dr. Emilie Plascencia Glucose Ql (U) Negative Normal NEGATIVE [facility] Comment on above: Performed By: #### E RUR #### [facility] [address] [place] [address] Dr. Emilie Plascencia Hemoglobin Ql (U) Negative Normal NEGATIVE [facility] Comment on above: Performed By: #### E RUR #### [facility] [address] [place] [address] Dr. Emilie Plascencia Ketones Ql (U) Negative Normal NEGATIVE [facility] Comment on above: Performed By: #### E RUR #### [facility] [address] [place] [address] Dr. Emilie Plascencia LEUKOCYTES Negative Normal NEGATIVE [facility] Comment on above: Performed By: #### E RUR #### [facility] [address] [place] [address] Dr. Emilie Plascencia Nitrite Ql (U) Negative Normal NEGATIVE [facility] Comment on above: Performed By: #### E RUR #### [facility] [address] [place] [address] Dr. Emilie Plascencia pH (U) 6.0 [pH] Normal 5-9 [facility] Comment on above: Performed By: #### E RUR #### [facility] [address] [place] [address] Dr. Emilie Plascencia SPEC GRAVITY 1.010 Normal 1.005-<=1.[address] [facility] Comment on above: Performed By: #### E RUR #### [facility] [address] [place] [address] Dr. Emilie Plascencia UA PROTEIN Negative Normal NEGATIVE/ TRACE [facility] Comment on above: Performed By: #### E RUR #### [facility] [address] [place] [address] Dr. Emilie Plascencia UR MICRO IND NOT INDICATED Normal [facility] Comment on above: Performed By: #### E RUR #### [facility] [address] [place] [address] Dr. Emilie Plascencia Urobilinogen Qn (U) 0.2 {Barbara'U}/dL Normal 0.2 - 1. 0 [facility] Comment on above: Performed By: #### E RUR #### [facility] [address] [place] [address] Dr. Emilie Plascencia PREG QUANT HCGon 08-09-2022 HCG QUANT 16768 mIU/mL Normal [facility] Comment on above: Performed By: #### P REGQNT #### [facility] [address] [place] [address] Dr. Emilie Plascencia HCG RANGE SEE BELOW Normal [facility] Comment on above: Result Comment: 5-50 0.2-1 WEEK 50-500 1-2 WEEKS 100-5,000 2-3 WEEKS 500-10,000 3-4 WEEKS 1,000-50,000 4-5 WEEKS 10,000-100,000 5-6 WEEKS 15,000-200,000 6-8 WEEKS 10,000-100,000 2-3 MONTHS Performed By: #### P REGQNT #### [facility] [address] [place] [address] Dr. Emilie Plascencia PROF CHEM 8 (BAS METB)on Anion gap [Moles/Vol] 12.3 mmol/L Normal [facility] Comment on above: Performed By: #### A 1C #### [facility] [address] [address] [address] Emilie Plascencia Calcium [Mass/Vol] 8.9 mg/dL Normal 8.5-10.1 [facility] [place] Comment on above: Performed By: #### A 1C #### [facility] [address] [address] [address] Eimlie Plascencia Chloride [Moles/Vol] 107 mmol/L Normal 98-107 [facility] Comment on above: Performed By: #### A 1C #### [facility] [address] [address] [address] Emilie Plascencia CO2 [Moles/Vol] 26.6 mmol/L Normal 21.0-32.0 [facility] Comment on above: Performed By: #### A 1C #### [facility] [address] [address] [address] Emilie Plascencia Creatinine [Mass/Vol] 0.49 mg/dL Critically low 0.55-1.02 [facility] Comment on above: Performed By: #### A 1C #### [facility] [address] [address] [address] Emilie Plascencia EGFR-AF MOROCCAN >60 Normal >=60 [facility] Comment on above: Performed By: #### A 1C #### [facility] [address] [address] [address] Emilie Plascencia EGFR-NON AF MOROCCAN >60 Normal >=60 [facility] Comment on above: Performed By: #### A 1C #### [facility] [address] [address] [address] Emilie Plascencia Glucose [Mass/Vol] 93 mg/dL Normal 74-106 [facility] [place] Comment on above: Performed By: #### A 1C #### [facility] [address] [address] [address] Emilie Plascencia Potassium [Moles/Vol] 3.9 mmol/L Normal 3.5-5.1 [facility] Comment on above: Performed By: #### A 1C #### [facility] [address] [address] [address] Emilie Plascencia Sodium [Moles/Vol] 142 mmol/L Normal 136-145 [facility] Comment on above: Performed By: #### A 1C #### [facility] [address] [address] [address] Emilie Plascencia Urea nitrogen [Mass/Vol] 10.0 mg/dL Normal 7.0-18.0 [facility] Comment on above: Performed By: #### A 1C #### [facility] [address] [address] [address] Emilie Plascencia Urea nitrogen/Creatinine [Mass ratio] 20.4 mg/mg Normal [facility] Comment on above: Performed By: #### A 1C #### [facility] [address] [address] [address] Emilie Plascenica US PREG TVon 08-09-2022 US PREG TV EXAM: US PREG TV INDICATION: Abnormal vaginal bleeding. COMPARISON: None for this . TECHNIQUE: Transvaginal pelvic ultrasound was performed. FINDINGS: Single intrauterine . Mean sac diameter: 1.3 cm, 5 weeks, 3 days [place]-rump length: 0.3 cm, 5 weeks, 6 days [...] ANITA HATFIELD Date: 2022-08-09 09:59 Normal [facility] PREG QUANT HCGon 06-05-2022 HCG QUANT <1 Normal [facility] Comment on above: Performed By: #### P REGQNT #### [facility] [address] [address] [address] Emilie Plascencia HCG RANGE SEE BELOW Normal [facility] Comment on above: Result Comment: 5-50 0.2-1 WEEK 50-500 1-2 WEEKS 100-5,000 2-3 WEEKS 500-10,000 3-4 WEEKS 1,000-50,000 4-5 WEEKS 10,000-100,000 5-6 WEEKS 15,000-200,000 6-8 WEEKS 10,000-100,000 2-3 MONTHS Performed By: #### P REGQNT #### [facility] [address] [place] [address] Dr. Emilie Plascencia PREG QUANT HCGon 05-27-2022 HCG QUANT 14 mIU/mL Normal [facility] Comment on above: Performed By: #### P REGQNT #### [facility] [address] [place] [address] Dr. Emilie Plascencia HCG RANGE SEE BELOW [facility] Comment on above: Result Comment: 5-50 0.2-1 WEEK 50-500 1-2 WEEKS 100-5,000 2-3 WEEKS 500-10,000 3-4 WEEKS 1,000-50,000 4-5 WEEKS 10,000-100,000 5-6 WEEKS 15,000-200,000 6-8 WEEKS 10,000-100,000 2-3 MONTHS Performed By: #### P REGQNT #### [facility] [address] [place] [address] Dr. Emilie Plascencia PREG QUANT HCGon 05-25-2022 HCG QUANT 17 mIU/mL Normal [facility] Comment on above: Performed By: #### A 1C #### [facility] [address] [place] [address] Dr. Emilie Plascencia HCG RANGE SEE BELOW [facility] Comment on above: Result Comment: 5-50 0.2-1 WEEK 50-500 1-2 WEEKS 100-5,000 2-3 WEEKS 500-10,000 3-4 WEEKS 1,000-50,000 4-5 WEEKS 10,000-100,000 5-6 WEEKS 15,000-200,000 6-8 WEEKS 10,000-100,000 2-3 MONTHS Performed By: #### A 1C #### [facility] [address] [place] [address] Dr. Emilie Plascencia Vital Signs Date Time Vital Sign Value Performing Clinician Facility 10-31-2024 15:02-0400 Body height 157.5 cm Olayinka Christelle DO Work Phone: [facility] 10-31-2024 15:02-0400 Body mass index (BMI) [Ratio] 34.11 kg/m2 Olayinka Christelle DO Work Phone: [facility] 10-31-2024 15:02-0400 Body weight 84.6 kg Olayinka Christelle DO Work Phone: [facility] 10-31-2024 15:02-0400 Diastolic blood pressure 82 mm[Hg] Olayinka Christelle DO Work Phone: [facility] 10-31-2024 15:02-0400 Systolic blood pressure 120 mm[Hg] Olayinka Christelle DO Work Phone: [facility] 04-10-2024 16:32-0500 Body height 157.5 cm Olayinka Christelle DO Work Phone: [facility] 04-10-2024 16:32-0500 Body mass index (BMI) [Ratio] 33.65 kg/m2 Olayinka Christelle DO Work Phone: [facility] 04-10-2024 16:32-0500 Body weight 83.46 kg Olayinka Christelle DO Work Phone: [facility] 04-10-2024 16:32-0500 Diastolic blood pressure 70 mm[Hg] Olayinka Christelle DO Work Phone: [facility] 04-10-2024 16:32-0500 Systolic blood pressure 118 mm[Hg] Olayinka Christelle DO Work Phone: [facility] 01-21-2024 14:12-0400 Body height 157.48 cm [facility] 01-21-2024 14:12-0400 Body mass index (BMI) [Ratio] 33.3 kg/m2 [facility] 01-21-2024 14:12-0400 Body temperature 98.9 [degF] [facility] 01-21-2024 14:12-0400 Body weight 82.55 kg [facility] 01-21-2024 14:12-0400 Diastolic blood pressure 81 mm[Hg] [facility] 01-21-2024 14:12-0400 Heart rate 76 /min [facility] 01-21-2024 14:12-0400 Respiratory rate 16 /min [facility] 01-21-2024 14:12-0400 SaO2% (BldA) [Mass fraction] 97 % [facility] 01-21-2024 14:12-0400 Systolic blood pressure 118 mm[Hg] [facility] 08-03-2023 09:35-0500 Body height 157.5 cm Pineda Rojas MD Work Phone: [facility] 08-03-2023 09:35-0500 Body mass index (BMI) [Ratio] 32.02 kg/m2 Pineda Rojas MD Work Phone: [facility] 08-03-2023 09:35-0500 Body weight 79.4 kg Pineda Rojas MD Work Phone: [facility] 08-03-2023 09:35-0500 Diastolic blood pressure 66 mm[Hg] Pineda Rojas MD Work Phone: [facility] 08-03-2023 09:35-0500 Heart rate 78 /min Pineda Rojas MD Work Phone: [facility] 08-03-2023 09:35-0500 Systolic blood pressure 138 mm[Hg] Pineda Rojas MD Work Phone: [facility] Encounters Encounter Date Encounter Type Care Provider Facility Start: 01-22-2025 End: 01-22-2025 Telephone encounter Shanita Chaves RN [facility] Start: 10-31-2024 End: 10-31-2024 Patient encounter procedure Olayinka Bourgeois DO Work Phone: [facility] Start: 10-31-2024 End: 10-31-2024 Periodic preventive med est patient 18-39 yrs Olayinka Bourgeois DO Work Phone: [facility] Comment on above: Well woman exam with routine gynecological exam Start: 10-31-2024 End: 10-31-2024 ambulatory OLAYINKA CHRISTELLE Not Available Start: 10-31-2024 End: 10-31-2024 Bamboo flowsheet Olayinka Christelle DO Work Phone: [facility] Start: 10-31-2024 End: 11-03-2024 Bamboo flowsheet Olayinka Christelle DO Work Phone: [facility] Start: 10-31-2024 End: 11-03-2024 Clinisync Result Encounter Olayinka Christelle DO Work Phone: [facility] External Department Unsolicited Start: 05-03-2024 End: 05-03-2024 Phys/qhp telephone evaluation 5-10 min Olayinka Christelle DO Work Phone: [facility] Comment on above: History of uterine s car due to previous surgery Start: 04-10-2024 End: 04-10-2024 Office outpatient visit 15 minutes Olayinka Christelle DO Work Phone: [facility] Comment on above: H/O section ; Nausea; History of anemia; PCOS (polycystic ovarian syndrome) Start: 04-10-2024 End: 04-10-2024 ambulatory OLAYINKA CHRITSELLE Not Available Start: 04-10-2024 End: 04-10-2024 Bamboo flowsheet Olayinka Christelle DO Work Phone: [facility] Start: 04-10-2024 End: 04-10-2024 Bamboo flowsheet Olayinka Christelle DO Work Phone: [facility] Start: 04-10-2024 End: 04-10-2024 Telephone encounter Chelo Ness RN [facility] Comment on above: Surgical Or Dental C learance Type 1 von Willebran d disease ([facility]); Menorrhagia with regular cycle Start: 03-08-2024 End: 03-08-2024 Telephone encounter Chelo Ness RN [facility] Comment on above: Med Refill Start: 03-06-2024 End: 03-06-2024 Telephone encounter Chelo Ness RN [facility] Start: 01-21-2024 End: 01-21-2024 ambulatory [facility] Work Phone: Start: 01-21-2024 End: 01-21-2024 Patient encounter procedure [facility] Work Phone: Start: 11-08-2023 End: 11-08-2023 ambulatory OLAYINKA BOURGEOIS Not Available Start: 08-24-2023 Documentation procedure Freda Fishman [facility] Start: 08-03-2023 Orders Only Pineda Rojas MD Work Phone: [facility] Comment on above: Iron deficiency (Keshia korina Dx); Iron malabsorption; Type 1 von Willebrand disease ([facility]) Start: 08-03-2023 End: 08-03-2023 Office outpatient visit 15 minutes Pineda Rojas MD Work Phone: [facility] [place] Comment on above: Type 1 [facility] Willebran d [facility] (Primary Dx); History of iron deficiency anemia Start: 11-04-2022 End: 11-04-[address] OLAYINKA BOURGEOIS . Facility: Start: 09-05-2022 End: 09-06-2022 ambulatory NONE LISTED REQUEST Facility: Start: 09-03-2022 End: 09-04-2022 ambulatory NONE LISTED REQUEST Facility:[facility] Start: 08-09-2022 End: 08-09-2022 ambulatory BALDEMAR FLETCHER Facility: Start: 05-25-2022 End: 06-06-[address] OLAYINKA BOURGEOIS . Facility: Procedures Date Procedure Procedure Detail Performing Clinician Start: 10-31-2024 Urnls dip stick/tabl et rgnt non-auto w/o micrscp Olayinka Christelle DO Work Phone: Start: 10-31-2024 IGP,APTIMA HPV,AGE GDLN Olayinka Christelle DO Work Phone: Start: 11-08-2023 H/O: section H/O s ection [...] Td Vaccines (5 - Td or Tdap) [facility] Start: 11-05-2025 End: 11-05-2025 Patient encounter procedure 11/05/2025 3:00 PM EDT Office Visit [facility] [address] [address] Olayinka Bourgeois, DO [address] [place], [place] [id number] [facility] Start: 11-04-2025 Screening for malign ant neoplasm of cervix Pap Smear [facility] Start: 02-05-2025 Influenza vaccination Influenza Vacc ine [facility] Start: 10-31-2024 End: 10-31-2024 Patient encounter procedure 10/31/2024 2:40 PM EDT Office Visit [facility] [address] [address] Olayinka Bourgeois, DO [address] [place], [place] [id number] Arrived [facility] Comment on above: Arrived Start: 10-18-2024 End: 10-18-2024 Patient encounter procedure 10/18/2024 3:00 PM EDT Office Visit [facility] [address] [place] [address] Olayinka Bourgeois, DO [address] [place] [address] [facility] Start: 08-03-2024 Adult BMI Screening Adult BMI Screen ing [facility] Start: 08-03-2024 Depression Screening Depression Scre ening [facility] Start: 08-03-2024 Tobacco Screening Tobacco Screening [facility] Start: 05-02-2024 End: 05-02-2024 Patient encounter procedure 05/02/2024 8:00 AM EST Office Visit [facility] [address] [place] [id number] Olayinka Bourgeois, DO [address] [place] [address] [facility] Start: 04-10-2024 End: 04-10-2024 Patient encounter procedure 04/10/2024 3:20 PM EST Consult [facility] [address] [place] [address] Olayinka Bourgeois, DO [address] [place] [address] Arrived [facility] Comment on above: Arrived Start: 04-10-2024 End: 04-10-2025 CBC W Auto Differential panel - Blood CBC and differential Lab Routine History of anemia PCOS (polycystic ovarian syndrome) Expected: 04/10/2024 (Approximate), Expires: 04/10/2025 [facility] Comment on above: Expected: 04/10/2024 (Approximate), Expires: 04/10/2025 Start: 04-10-2024 End: 04-10-2025 DHEA DHEA Lab Routine History of anemia PCOS (polycystic ovarian syndrome) Expected: 04/10/2024, Expires: 04/10/2025 [facility] Comment on above: Expected: 04/10/2024 , Expires: 04/10/2025 Start: 04-10-2024 End: 04-10-2025 DHEA-sulfate DHEA-sulfate Lab Routine History of anemia PCOS (polycystic ovarian syndrome) Expected: 04/10/2024 (Approximate), Expires: 04/10/2025 [facility] Comment on above: Expected: 04/10/2024 (Approximate), Expires: 04/10/2025 Start: 04-10-2024 End: 04-10-2025 Follicle stimulating hormone Follicle stimulating hormone Lab Routine History of anemia PCOS (polycystic ovarian syndrome) Expected: 04/10/2024 (Approximate), Expires: 04/10/2025 [facility] Comment on above: Expected: 04/10/2024 (Approximate), Expires: 04/10/2025 Start: 04-10-2024 End: 04-10-2025 hCG, quantitative, hCG, quantitative, Lab Routine History of anemia PCOS (polycystic ovarian syndrome) Expected: 04/10/2024 (Approximate), Expires: 04/10/2025 [facility] Work Phone: Comment on above: Expected: 04/10/2024 (Approximate), Expires: 04/10/2025 Start: 04-10-2024 End: 04-10-2025 Hemoglobin A1c/Hemoglobin.total in Blood Hemoglobin A1c Lab Routine History of anemia PCOS (polycystic ovarian syndrome) Expected: 04/10/2024 (Approximate), Expires: 04/10/2025 [facility] Comment on above: Expected: 04/10/2024 (Approximate), Expires: 04/10/2025 Start: 04-10-2024 End: 04-10-2025 Luteinizing hormone Luteinizing hormone Lab Routine History of anemia PCOS (polycystic ovarian syndrome) Expected: 04/10/2024 (Approximate), Expires: 04/10/2025 [facility] Comment on above: Expected: 04/10/2024 (Approximate), Expires: 04/10/2025 Start: 04-10-2024 End: 04-10-2025 Thyrotropin [Units/volume] in Serum or Plasma TSH Lab Routine History of anemia PCOS (polycystic ovarian syndrome) Expected: 04/10/2024 (Approximate), Expires: 04/10/2025 [facility] Comment on above: Expected: 04/10/2024 (Approximate), Expires: 04/10/2025 Start: 04-10-2024 End: 04-10-2025 Thyroxine (T4) free [Mass/volume] in Serum or Plasma T4, free Lab Routine History of anemia PCOS (polycystic ovarian syndrome) Expected: 04/10/2024 (Approximate), Expires: 04/10/2025 [facility] Comment on above: Expected: 04/10/2024 (Approximate), Expires: 04/10/2025 Start: 04-10-2024 End: 04-10-2025 US for US PELVIS-TRANSVAG IF INDICATED Imaging Routine History of anemia PCOS (polycystic ovarian syndrome) Expected: 04/10/2024 (Approximate), Expires: 04/10/2025 [facility] Comment on above: Expected: 04/10/2024 (Approximate), Expires: 04/10/2025 Start: 02-06-2024 Influenza vaccination Influenza Vacc ine [facility] Start: 10-20-2009 Adult BMI Follow Up Plan Adult BMI Follow Up Plan [facility] Cytology Cervical or vaginal smear or scraping study Pap Smear Pathology and Cytology Routine Well woman exam with routine gynecological exam Ordered: 10/31/2024 [facility] Work Phone: Comment on above: Ordered: 10/31/2024 Human papilloma viru s DNA [Presence] in Unspecified specimen by Probe with amplification HPV DNA probe, amplified Microbiology Routine Well woman exam with routine gynecological exam Ordered: 10/31/2024 [facility] Comment on above: Ordered: 10/31/2024 Immunizations Immunization Date Immunization Notes Care Provider Fa cili 03-30-2023 RHO(D) immune globul in- IV or IM Pineda Rojas MD Work Phone: [facility] 02-12-2023 influenza, injectabl e, quadrivalent, preservative free Pineda Rojas MD Work Phone: [facility] 02-12-2023 RHO(D) immune globul in- IV or IM Pineda Rojas MD Work Phone: [facility] 02-12-2023 influenza virus vacc ine, unspecified formulation Chelo Ness RN [facility] 12-31-2022 RHO(D) immune globul in- IV or IM Pineda Rojas MD Work Phone: [facility] 12-31-2022 tetanus toxoid, redu sami diphtheria toxoid, and acellular pertussis vaccine, adsorbed Pineda Rojas MD Work Phone: [facility] 10-16-2020 RHO(D) immune globul in- IV or IM Pineda Rojas MD Work Phone: [facility] 09-30-2020 tetanus toxoid, redu sami diphtheria toxoid, and acellular pertussis vaccine, adsorbed Pineda Rojas MD Work Phone: [facility] 09-17-2020 influenza, injectabl e, quadrivalent, preservative free Pineda Rojas MD Work Phone: [facility] 01-27-2018 RHO(D) immune globul in- IV or IM Pineda Rojas MD Work Phone: [facility] 01-27-2018 tetanus toxoid, redu sami diphtheria toxoid, and acellular pertussis vaccine, adsorbed Pineda Rojas MD Work Phone: [facility] 12-30-2016 RHO(D) immune globul in- IV or IM Pineda Rojas MD Work Phone: [facility] 08-14-2016 influenza, injectabl e, quadrivalent, preservative free Pineda Rojas MD Work Phone: [facility] 05-04-2007 human papilloma viru s vaccine, quadrivalent Pineda Rojas MD Work Phone: [facility] 05-04-2007 meningococcal polysaccharide (groups A, C, Y and W-135) diphtheria toxoid conjugate vaccine (MCV4P) Pineda Rojas MD Work Phone: [facility] 12-23-2005 hepatitis A vaccine, adult dosage Pineda Rojas MD Work Phone: [facility] 12-23-2005 hepatitis A vaccine, pediatric/adolescent dosage, 2 dose schedule Pineda Rojas MD Work Phone: [facility] 12-23-2005 hepatitis B vaccine, adult dosage Pineda Rojas MD Work Phone: [facility] 2005 hepatitis B vaccine, adult dosage Pineda Rojas MD Work Phone: [facility] 2005 hepatitis B vaccine, pediatric or pediatric/adolescent dosage Pineda Rojas MD Work Phone: [facility] 2005 tetanus toxoid, redu sami diphtheria toxoid, and acellular pertussis vaccine, adsorbed Pineda Rojas MD Work Phone: [facility] 2005 varicella virus vaccine Pineda Rojas MD Work Phone: [facility] Payers Date Payer Category Payer Private Health Insurance [id number] 2023 Private Health Insurance [id number] 2023 Managed Care Other (unspecified) [facility] [id number] 2023 Private Health Insurance [id number] 2020 [facility] [id number] 2020 [employer] Blue Shie ld Managed Care - Other [employer] [id number] 2020 Unknown [employer] BCBS OUT OF STATE PPO/TRUST [id number] 2020-Present [phone] [id number] 1990 Unknown [id number] 1991 Unknown [id number] [id number] 1991 Unknown [id number] [id number] 1991 Unknown [id number] [id number] 1991 Unknown [id number] [id number] 1991 Unknown [id number] [id number] 1991 Unknown [id number] [id number] 1991 Unknown [id number] 1959 Unknown [id number] 1959 Unknown [id number] Worker's Compensation [facility] Ind [id number] Social History Date Type Detail Facility Start: 12-31-2022 End: 01-21-2024 Tobacco smoking status NHIS Never smoked tobacco (finding) [facility] Start: 1990 Sex Assigned At Female [facility] Start: 11-08-2023 End: 04-10-2024 Alcoholic beverage intake Lifetime non-drinker (finding) [facility] Start: 07-17-2020 End: 11-08-2023 History of Social function [facility] Start: 07-17-2020 End: 11-08-2023 Tobacco use panel [facility] Start: 05-15-2021 Gender identity Identifies as female gender (finding) [facility] Start: 12-31-2022 End: 04-10-2024 Tobacco use and exposure Smokeless tobacco non-user [facility] Start: 08-03-2023 Alcohol intake Current non-dr auto phone installer of alcohol (finding) [facility] How hard is it for you to pay for the very basics like food, housing, medical care, and heating Hard [facility] Adolescent depressio n screening assessment 0 [facility] Start: 07-29-2020 Education 15 [facility] Start: 01-08-2015 Sex Female (finding) [facility] NEGATED: Highlighted rowStart: NINF History of tobacco use Passive smoker [facility] Clinical Notes 08-03-2023 to 01-22-2025 Telephone Encounter - Shanita Chaves RN - 01/22/2025 3:34 PM EDTTelephone Encounter - Shanita Chaves RN - 01/22/2025 3:34 PM EDTAnita De La Fuente LPN - 10/31/2024 2:40 PM EDT Note Date & Type Note Facility 01-22-2025 Miscellaneous Notes Phone call from patient. She is having intense uterine cramping and back pain that is leaving her in tears. She is due to begin menses tomorrow. Pain has not been this bad in years. She is asking if she can take something besides Tylenol as it is not helping. Information Technology Advisor explains she can intermittently take ibuprofen as long as she isn't taking it around the clock. Advised that she seeks emergency care if pain worsens as it could be something besides period related cramping as it is so severe. Patient states she has a history of cysts and this pain is similar. Advised contacting baseball sewer hand as well. Understanding verbalized. documented in this encounter [facility] 01-22-2025 Telephone encounter Note Phone call from patient. She is having intense uterine cramping and back pain that is leaving her in tears. She is due to begin menses tomorrow. Pain has not been this bad in years. She is asking if she can take something besides Tylenol as it is not helping. Information Technology Advisor explains she can intermittently take ibuprofen as long as she isn't taking it around the clock. Advised that she seeks emergency care if pain worsens as it could be something besides period related cramping as it is so severe. Patient states she has a history of cysts and this pain is similar. Advised contacting baseball sewer hand as well. Understanding verbalized. [facility] 10-31-2024 History of Present illness Narrative Reason for Appointment: Patient ID: Marylin Fermin is a 34 y.o. female who presents for Well Women Visit Patient presents today for Annual Exam. 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 Type 1 von Willebrand disease ([facility]) 07/01/2006 Diastasis recti 11/08/2023 H/O section 11/08/2023 Resolved Ambulatory Problems Diagnosis Date Noted Hematologic disorder in mother affecting 05/28/2020 Iron deficiency anemia of mother during 08/05/2020 Rh negative state in antepartum period, third trimester 09/16/2020 Past Medical History: Diagnosis Date CF (cystic fibrosis) ([facility]) Gestational HTN 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[facility]) Miscarriage Need for rhogam due to Rh negative mother Von Willebrand disease ([facility]) HISTORY PAST MEDICAL HISTORY SOCIAL HISTORY Past Medical History: Diagnosis Date CF (cystic fibrosis) ([facility]) Gestational HTN 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 She is well-developed. Genitourinary: Vulva normal. Breasts: Breasts are soft. Right: Normal. Left: Normal. Cardiovascular: Rate and Rhythm: Normal rate and regular rhythm. Pulmonary: Effort: Pulmonary effort is normal. Breath sounds: Normal breath sounds. Abdominal: General: Bowel sounds are normal. There is no distension. Palpations: Abdomen is soft. Tenderness: There is no abdominal tenderness. There is no guarding or rebound. Musculoskeletal: General: No swelling. Normal range of motion. Right lower leg: No edema. Left lower leg: No edema. Neurological: Mental Status: She is alert and oriented to person, place, and time. Skin: General: Skin is warm and dry. Psychiatric: Mood and Affect: Mood normal. Behavior: Behavior normal. Vitals and nursing note reviewed. Exam conducted with a wood preserving plant laborer present. Vitals: Estimated body mass index is 34.11 kg/m as calculated from the following: Height as of this encounter: 5' 2 . Weight as of this encounter: 186 lb 8 oz. BP: 120/82 Patient's last menstrual period was 10/08/2024. ASSESSMENT & PLAN ICD-10-CM 1. Well woman exam with routine gynecological exam Z01.419 Pap Smear HPV DNA probe, amplified POCT urinalysis dipstick manually resulted Annual Exam: Patient presents today for an annual exam. Patient states she is doing well and has no complaints. Pap was obtained without difficulty. Orders Placed This Encounter Procedures HPV DNA probe, amplified POCT urinalysis dipstick manually resulted Follow Up: Patient is to return in one year for annual unless needed otherwise. Documented by Anita De La Fuente LPN on behalf of: Olayinka Bourgeois DO documented in this encounter [facility] 05-03-2024 History of Present illness Narrative Reason for Appointment: Patient ID: Marylin Fermin is a 33 y.o. female who presents for No chief complaint on file. Patient presents today via telephone call for a telehealth appointment. Patients Phone #: [phone] (mobile) Current Medications: has a current medication list which includes the following prescription(s): cholecalciferol, cholecalciferol, citalopram, cyanocobalamin, and . 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 Social History [...] Olayinka Bourgeois DO documented in this encounter [facility] 04-10-2024 History of Present illness Narrative [...] carrier 04/18/2020 Type 1 von Willebrand disease ([facility]) 07/01/2006 Diastasis recti 11/08/2023 H/O section 11/08/2023 Resolved Ambulatory Problems Diagnosis Date Noted Hematologic disorder in mother affecting 05/28/2020 Iron deficiency anemia of mother during 08/05/2020 Rh negative state in antepartum period, third trimester 09/16/2020 Past Medical History: Diagnosis Date CF (cystic fibrosis) ([facility]) Gestational HTN 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[facility]) Miscarriage Need for rhogam due to Rh negative mother Von Willebrand disease ([facility]) HISTORY PAST MEDICAL HISTORY SOCIAL HISTORY Past Medical History: Diagnosis Date CF (cystic fibrosis) ([facility]) Gestational HTN 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 Rojas. Clearance faxed via [place]. documented in this encounter [facility] 04-10-2024 Telephone encounter Note Incoming patient message regarding surgery r/t a broken finger tomorrow, 04/11/24. Per Dr. Rojas's plan: TXA TID x 5 days, first dose being 1-2 hours prior to sx. Fax number for surgeon per patient message: LVM to patient to review plan and confirm pharmacy. Also to verify surgeon we are to fax clearance to. [facility] 04-10-2024 Telephone encounter Note PC from patient, confirmed pharmacy and reviewed plan. Patient verbalized understanding. Script pended to Dr. Rojas. Clearance faxed via [place]. [facility] 03-08-2024 Miscellaneous Notes PC to patient to confirm pharmacy for menses TXA refill. [facility] [place] is preferred pharmacy. Updated in [employer]. documented in this encounter [facility] 03-08-2024 Telephone encounter Note PC to patient to confirm pharmacy for menses TXA refill. [facility] 03-08-2024 Telephone encounter Note [facility] [place] is preferred [facility]. Updated in [employer]. [facility] 03-06-2024 Miscellaneous Notes PC to patient [...] Patient verbalized understanding. documented in this encounter [facility] 03-06-2024 Telephone encounter Note PC to [...] a hematoma does form to give the [facility] a call back. Patient verbalized understanding. [facility] 08-24-2023 History of Present illness Narrative Called and spoke with patient to scheduled iv iron on 08/18/23. She said she doesn't know if she can get off work and will call back to schedule. documented in this encounter [facility] 08-03-2023 History of Present illness Narrative Pt is here for 6 month follow up. Pt denies any bleeding issues. She reports being very dizzy the past couple of days and is having some neck pain. She is taking oral iron tablets and will need a refill. She has extreme fatigue. Images from the original note were not included. [facility] ADULT & PEDIATRIC BENIGN HEMATOLOGY PEDIATRIC THROMBOPHILIA Dr.Dagmar Di Rojas OUTPATIENT FOLLOW-UP NOTE: [facility] Patient ID: Marylin Fermin, 32 y.o. female PCP: Amy Sullivan, DOGMAN/WOMAN-RRTS : 1990 CHIEF COMPLAINT: Chief Complaint Patient presents with Follow-up HISTORY OF PRESENT ILLNESS: Marylin Fermin is a 32 y.o. female with history of type 1 von willebrand disease who presents today for follow-up at the [facility] due to recent . She [...] 1 von Willebrand's disease. This was diagnosed [facility] in 2006 (age 16) when she developed [...] - 1 unit platelets prior per previous hairspring adjuster-unclear indication 10/15/2020 Surgery Delivery of baby girl. [...] 12/29/2016 Performed by Mel Luz MD at [facility] OR REPEAT N/A 10/15/2020 Performed by Vinicius Rosario MD at [facility] OR REPEAT N/A 01/25/2018 Performed by Ariel Ford MD at [facility] OR REPEAT TUBAL LIGATION N/A 03/29/2023 Performed by Keisha Baugh MD at [facility] OR INCISION AND DRAINAGE 03/30/2023 [...] father were negative. SOCIAL HISTORY: Lives in [place], [place] with her family. 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 female with history of type 1 von willebrand disease who presents today for follow-up at the [facility] due to recent . 1. Type 1 von willebrand disease: Diagnosed based on low VWD levels (30% for Ristocetin at [facility]) in the setting of type A blood in 2006 (age 16). Multimers showed decrease in all multimers at that time. The patient was apparently diagnosed with type 1 VWD. Repeat VWD labs in 04/2023 showed antigen of 56, activity of 49, factor 8 of 69, and normal multimers. - Stable currently. - Anticipatory guidance given. - Notify [facility] of any upcoming surgeries or procedures. - No current menstrual bleeding (as ), but has used TXA PRN for menorrhagia in the past. - Our licensed clinical social worker met with the patient today during [...] year and PRN. Pineda Rojas MD Adult Violin Restorer [facility] Pager: [phone] Pt is a 32 year old female with vWD, here today with her , and 3 children Agreeable to meet with , family remained in the room Marylin resides in the [facility] with her Francisco (not affected), daughter [place] 2 (vWD) and son Josiah (vWD) brother Ventura (not tested). There are no major bleeding concerns, she is currently still breast feeding Ventura, and has not had a period. There are no upcoming surgeries. 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 No major financial concerns reported today, family seems able to meet basic needs of the home. Insurance: family has commercial insurance. Family has submitted financial documents for [facility] approval, and have been approved through 03/09/24 for the children. This will help with any co-pays and other medications. The children were dressed appropriately, parents observed providing support and comfort for willow who was crying. Dad appeared to be appropriate with his parenting by providing support. Parents appear to be loving and supportive. Marylin had some post , she is now doing much better, not taking any prescribed medications. Denies any SI or HI. No major psychosocial issues identified, sw encouraged particpation with [employer] activities, Camp, [employer], [employer], etc. Parents will consider camp for Josiah Much support provided Isidro FRIAS documented in this encounter [facility] Evaluation note No assessment inform ation available [facility] Work Phone: Evaluation note Diagnosis H/O section Nausea Nausea alone History of anemia Personal history of diseases of blood and blood-forming organs PCOS (polycystic ovarian syndrome) Polycystic ovaries [facility] Diagnosis History of uterine scar due to previous surgery [facility] Diagnosis Iron deficiency- Primary Disorders of iron metabolism Iron malabsorption Other specified intestinal malabsorption Type 1 von Willebrand disease (CMS-HCC) Von Willebrand's disease [facility] Diagnosis Type 1 von Willebrand disease (CMS-HCC)- Primary Von Willebrand's disease History of iron deficiency anemia Personal history of diseases of blood and blood-forming organs [facility] Diagnosis Type 1 von Willebrand disease (CMS-HCC) Von Willebrand's disease Menorrhagia with regular cycle [facility] Diagnosis Well woman exam with routine gynecological exam Routine gynecological examination documented in this encounter [facility]Not on filedocumented in [facility] [place] [facility]* Attachments The following attachments cannot be sent through Care Everywhere. * Taking care of bruises (Moroccan) [facility] [place] [facility] System[facility]ructionsNot on file documented in this [facility] [place] [facility] SystemInstructionsNot on file documented in this [facility]Pro[facility] [place] [facility] SystemInstructionsNot on file documented in this [facility] [place] [facility] SystemInstructionsNot on file documented in this encounterPro[facility] [place] [facility] SystemInstructionsNot on file documented in this encounterPro[facility] [place] [facility] SystemInstructionsNot on file [facility] in [facility] Summary Purpose Family History Relationship Condition [...] content) DATE CREATED AUTHOR 11/13/2022 [facility] DATE CREATED AUTHOR AUTHOR'S ORGANIZ ATION 11/03/2024 [facility] dical Specialists EPIC Care Teams (unrecognized sec tion and content) Team Status: Active Member Role Status Dates Services Family Health Primary Care Provider Active Team Status: Inactive Member Role Status Dates Services Family Health Primary Care Provider Active Start: January 21, 2024 End: January 21, 2024 Fiona Smith APRN Attending Provider Active Start: January 21, 2024 End: January 21, 2024 Psychiatric Social Worker Supervisor Relationship Specialty Start Date End Date Amy Sullivan APRN-RRTS [address] [place] [address] PCP - General Family Medicine 05/28/20 Psychiatric Social Worker Supervisor Relationship Specialty Start Date End Date Amy Sullivan DOGMAN/WOMAN-RRTS [address] [place] [address] PCP - General Family Medicine 05/28/20 Psychiatric Social Worker Supervisor Relationship Specialty Start Date End Date Amy Sullivan DOGMAN/WOMAN-RRTS [address] [place] [address] PCP - General Family Medicine 05/28/20 Psychiatric Social Worker Supervisor Relationship Specialty Start Date End Date Amy Sullivan DOGMAN/WOMAN-RRTS [address] [place] [address] PCP - General Family Medicine 05/28/20 Psychiatric Social Worker Supervisor Relationship Specialty Start Date End Date Amy Sullivan DOGMAN/WOMAN-RRTS [address] [place] [address] PCP - General Family Medicine 05/28/20 Psychiatric Social Worker Supervisor Relationship Specialty Start Date End Date Amy Sullivan DOGMAN/WOMAN-RRTS [address] [place] [address] PCP - General Family Medicine 05/28/20 Psychiatric Social Worker Supervisor Relationship Specialty Start Date End Date Amy Sullivan DOGMAN/WOMANERMA [address] [place] [address] PCP - General Family Medicine 05/28/20 Psychiatric Social Worker Supervisor Relationship Specialty Start Date End Date Amy Sullivan APRERMA [address] [place] [address] PCP - General Family Medicine 05/28/20 Goals [...] Date Comments Med Refill 04/10/2024 Reason Comments Well Women Visit FOR RECORDS PERTAINING TO PATIENTS WHO ARE [...] BE BASED ON THE PRIMARY CLINICAL RECORDS. [employer] provides no warranty or guarantee of the accuracy or completeness of information in this document.
[2025-03-21 17:21] LABS: Hematocrit 38.9 % (36.0-48.0); Hemoglobin 12.8 g/dL (12.0-16.0); Immature Granulocytes Abs Auto 0.04 10^3/uL (0.00-0.03); Immature Granulocytes Pct Auto 0.4 % (0.0-0.5); Lymphocytes Absolute Auto 3.0 10^3/uL (1.2-3.8); Mean Corpuscular HGB Conc 32.9 g/dL (29.9-35.2); Mean Corpuscular Hemoglobin 29.8 pg (26.7-34.0); Mean Corpuscular Volume 90.5 fL (81.0-99.0); Platelet Count 261 10^3/uL (150-450); Red Blood Count 4.30 10^6/uL (4.20-5.40); White Blood Count 10.5 10^3/uL (4.0-11.0)
[2025-03-21 18:10] LABS: Alanine Aminotransferase 28 U/L (14-59); Albumin Globulin Ratio 1.1; Albumin Level 4.1 g/dL (3.4-5.0); Alkaline Phosphatase 59 U/L (46-116); Anion Gap 12.7; Aspartate Amino Transferase 11 U/L (15-37); Blood Urea Nitrogen 14.0 mg/dL (7.0-18.0); Calcium 8.9 mg/dL (8.5-10.1); Carbon Dioxide 27.5 mmol/L (21.0-32.0); Chloride 104 mmol/L (98-107); Estimated GFR (African America >60 (>=60 mL/min/1.73m^2); Estimated GFR (Non-African Ame >60 (>=60 mL/min/1.73m^2); Globulin 3.8 g/dL; Glucose 89 mg/dL (74-106); Potassium 4.2 mmol/L (3.5-5.1); Sodium 140 mmol/L (136-145); Thyroid Stimulating Hormone 1.146 uIU/mL (0.358-3.740); Total Protein 7.9 g/dL (6.4-8.2)
== END 2025-03-21 16:14 | disposition home or self-care (01) ==
PROVIDERS: Visit Provider Physician Assistant
DX: Z76.89 Persons encountering health services in other specified circumstances (principal)
CPT/HCPCS: 36415; 80053; 83036; 84443; 85025

== ENCOUNTER 2025-03-21 16:43 | Outpatient (OUT) | payer OTHER, BC, SELFPAY ==
--- OUTSIDE RECORDS SUMMARY | 2024-01-11 10:30 | XMS_ITS ---
Author Organization [facility] vices Address [address] [place] [id number] Care Team Providers Care Banking Supervisor Name Role Phone Trea Hillhawa Unavailable [phone] Sergio Poole Unavailable [phone] REASON FOR VISIT Right Knee Pain/tingling Encounters Encounter Location Date Provider Diagnosis Main [address] [place] [id number] 01/11/2024 Sergio Poole Plan Of Treatment No Information Progress Notes * Eduardo FERMINB:1990 ( 34 yo F)Acc No.[id number]:01/11/2024 Medical Note Patient: Marylin VALDOVINOS Provider: Bethany Poole PA-C :1990 A ge:33 Y S ex:Female Date:01/11/2024 Address:[address] [place], [place] [id number] Subjective: * Chief Complaints: * 1 . Right Knee Pain/tingling. * Medical History: Objective: * Vitals: Assessment: Plan: * Treatment: * Billing Information: * Visit Code: * Procedure Codes: * Electronic signature of DANDRE Spann on 03/21/2025 at 03:05 PM EDT Sign off status: Pending * Provider: Bethany Poole PA-C Date: 0 01/11/2024 Generated for Michelle granado/Dee/eTransmitting on: 1 03:05 PM EDT
--- OUTSIDE RECORDS SUMMARY | 2024-07-10 04:20 | XMS_ITS ---
Author Organization [facility] Address [address] [place] [address] Care Team Providers Care Patient Financial Coordinator Name Role Phone Amy Sullivan Primary Care Provider Niko Sage [facility] [phone] Results Component Value Reference Range Notes SCC- FINGER 3 VIEW RIGHT 731 40 Reviewed date:07/12/2024 09:42:31 AM Interpretation: Performing Lab: Notes/Report: REASON FOR VISIT S/P RIGHT SMALL FINGER DISTAL PHALANX ORIF Encounters Encounter Location Date Provider Diagnosis [facility] Office [address] [place] [address] [place] [address] 07/10/2024 Niko Leonard Closed displaced fracture of distal phalanx of right little finger, initial encounter S62.636A Assessments Encounter Date Diagnosis (ICD Code) Assessment Notes Treatment Notes Treatment Clinical Notes Section Notes 07/10/2024 Closed displaced fracture of distal phalanx of right little finger, initial encounter (ICD-10 - S62.636A) Plan Of Treatment No Information Progress Notes * PATRIC FERMINA ADOB:1990 (34 yo F)Acc No.[id number]:07/10/2024 Progress Notes Patient: ELOY VALDOVINOS Provider: Paola Leonard MD :1990 A ge:33 Y S ex:Female Date:07/10/2024 Address:[address] [place], [place] [id number] Pcp:Amy Sullivan Subjective: * Chief Complaints: * 1 . S/P RIGHT SMALL FINGER DISTAL PHALANX ORIF. * Medical History: Objective: * Vitals: Assessment: * Assessment: 1. C losed displaced fracture of distal phalanx of right little finger, initial encounter - S62.636A Plan: * Treatment: Forms: * Images: * Electronic signature of Sha Leonard MD on 03/21/2025 at 04:47 PM EDT Sign off status: Pending * Provider: Paola Leonard MD Date: 0 07/10/2024 Generated for Michelle granado/Dee/Herbertitting on: 1 04:47 PM EDT
--- OUTSIDE RECORDS SUMMARY | 2024-09-04 03:50 | XMS_ITS ---
Author Organization [facility] Address [address] [place] [address] Care Team Providers Care Child Adolescent Psychiatrist Name Role Phone Amy Sullivan Primary Care Provider Niko [facility] [phone] REASON FOR VISIT BUMP ON FINGER Encounters Encounter Location Date Provider Diagnosis [facility] [facility] [address] [place] [address] [place] [address] 09/04/2024 Niko Leonard Plan Of Treatment No Information Progress Notes * ELOY FERMIN ADOB:1990 (34 yo F)Acc No.[id number]:09/04/2024 Patient: ELOY VALDOVINOS Provider: Paola Leonard MD :1990 A ge:33 Y S ex:Female Date:09/04/2024 Address:[address] [place], [place] [id number] Pcp:Amy Sullivan Subjective: * Chief Complaints: * 1 . BUMP ON FINGER. * Medical History: Objective: * Vitals: Assessment: Plan: * Treatment: Forms: * Images: * Electronic signature of Sha Leonard MD on 03/21/2025 at 04:47 PM EDT Sign off status: Pending * Provider: Paola Leonard MD Date: 0 09/04/2024 Generated for Michelle granado/Dee/eTransmitting on: 1 04:47 PM EDT
--- OUTSIDE RECORDS SUMMARY | 2025-03-21 15:10 | XMS_ITS | Encounter Summary ---
Author Organization [facility] Address [address] [place] [address] Care Team Providers Care Lunchroom Mother Name Role Phone Unavailable Primary Care Provider Unavailabl e Reason for Visit * Reason Comments Weight Management Encounter Details Date Type Department Care Team (Late st Contact Info) Description 03/21/2025 3:10 PM EDT Office Visit [facility] [address] [place] [id number] Palomo Bourgeois, [address] [place]rod [place], [facility] Encounter for weight management Social History Tobacco Use Types Packs/Day Years [...] Sign Reading Time Taken Comments Blood Pressure 112/76 03/21/2025 3:30 PM EDT Pulse - - Temperature - - Respiratory Rate - - Oxygen Saturation - - Inhaled Oxygen Concentration - - Weight 82.3 kg (181 lb 8 oz) 03/21/2025 3:30 PM EDT Height 157.5 cm (5' 2 ) 03/21/2025 3:30 PM EDT Body Mass Index 33.2 03/21/2025 3:30 PM EDT documented in this encounter Progress Notes * DANDRE Schneider - 03/21/2025 3:10 PM EDT Reason for Appointment: Patient ID: Marylin Valencia is a 34 y.o. female who presents for Weight Management Patient presents today for Weight Management Consult. 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 Type 1 von Willebrand disease (HCC) 07/01/2006 Diastasis recti 11/08/2023 H/O section 11/08/2023 Resolved Ambulatory Problems Diagnosis Date Noted Hematologic disorder in mother affecting ([facility]-HCC) 05/28/2020 Iron deficiency anemia of mother during ([facility]-HCC) 08/05/2020 Rh negative state in antepartum period, third trimester ([facility]-HCC) 09/16/2020 Past Medical History: Diagnosis Date CF (cystic fibrosis) (HCC) Gestational HTN ([facility]-HCC) 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HCC) Miscarriage ([facility]) Need for rhogam due to Rh negative mother Von Willebrand disease (HCC) HISTORY PAST MEDICAL HISTORY SOCIAL HISTORY Medical History[2] Social History Tobacco Use Smoking status: Never Smokeless tobacco: Never Substance Use Topics Alcohol use: Never Drug use: Never FAMILY HISTORY Family History[3] SURGICAL HISTORY Surgical History[4] REVIEW OF SYSTEMS Review of Systems: Review of Systems Constitutional: Negative. HENT: Negative. Eyes: Negative. Respiratory: Negative. Cardiovascular: Negative. Gastrointestinal: Negative. Genitourinary: Negative. Musculoskeletal: Negative. Skin: Negative. Neurological: Negative. All other systems reviewed and are negative. Hematological: Negative. Endocrine: Negative. Allergic/Immunologic: Negative. OBJECTIVE Objective: Physical Exam Constitutional: Appearance: Normal appearance. She is normal weight. HENT: Head: Normocephalic. Cardiovascular: Rate and Rhythm: Normal rate. Pulses: Normal pulses. Pulmonary: Effort: Pulmonary effort is normal. Breath sounds: Normal breath sounds. Abdominal: Palpations: Abdomen is soft. Musculoskeletal: General: Normal range of motion. Neurological: General: No focal deficit present. Mental Status: She is alert and oriented to person, place, and time. Psychiatric: Mood and Affect: Mood normal. Behavior: Behavior normal. Thought Content: Thought content normal. Judgment: Judgment normal. Vitals and nursing note reviewed. Vitals: Estimated body mass index is 33.2 kg/m?? as calculated from the following: Height as of this encounter: 5' 2 . Weight as of this encounter: 181 lb 8 oz. BP: 112/76 No LMP recorded. ASSESSMENT & PLAN ICD-10-CM 1. Encounter for weight management Z76.89 Patient presents for weight loss consultation. Patient is currently breast feeding. Patient educated on adipex and other weight loss medications. We will get wellness labs and send in metformin. Pt will follow up in one month lab results Documented by DANDRE Schneider on behalf of: Tejal Crockett [1] Allergies Allergen Reactions Nsaids Clotting disorder [2] Past Medical History: Diagnosis Date CF (cystic fibrosis) (HCC) Gestational HTN ([facility]) 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HCC) Miscarriage ([facility]) Need for rhogam due to Rh negative mother Von Willebrand disease (HCC) [3] No family history on file. [4] Past Surgical History: Procedure Laterality Date BILATERAL SALPINGOOPHORECTOMY Bilateral 03/30/2023 BREAST BIOPSY SECTION, LOW TRANSVERSE 12/2016 SECTION, LOW TRANSVERSE 01/2018 SECTION, LOW TRANSVERSE 03/29/2023 with tubal ligation SECTION, LOW TRANSVERSE 03/30/2023 TUBAL LIGATION 03/29/2023 documented in this encounter Plan of Treatment Upcoming Encounters Date Type Department Care Team (Late st Contact Info) Description 03/29/2025 2:30 PM EDT Office Visit [facility] [address] [place] [address] Fabio Ferreira DPM [address] [facility] [address] [place] [address] 04/19/2025 3:20 PM EST Office Visit [facility] [address] [place] [phone] Paris Zuluaga PA [address] [place] [address] 11/05/2025 3:00 PM EDT Office Visit [facility] [address] [place] [phone] Palomo Bourgeois DO [address] [place] [address] Scheduled Orders Name Type Priority Associated Diagnoses Orde r Schedule TSH Lab Routine Encounter for weight management Ordered: 03/21/2025 Lipid panel Lab Routine Encounter for weight management Expected: 03/21/2025 (Approximate), Expires: 03/21/2026 Comprehensive metabolic panel Lab Routine Encounter for weight management Ordered: 03/21/2025 Hemoglobin A1c Lab Routine Encounter for weight management Ordered: 03/21/2025 CBC and differential Lab Routine Encounter for weight management Ordered: 03/21/2025 documented as of this encounter Visit Diagnoses Diagnosis Encounter for weight management documented in this encounter
--- OUTSIDE RECORDS SUMMARY | 2025-03-21 16:47 | XMS_ITS | Encounter Summary ---
Author Organization [facility] Address [address] [place] [address] Care Team Providers Care Clinical Dietetic Technician Name Role Phone Unavailable Primary Care Provider Unavailabl e Encounter Details Date Type Department Care Team (Late Contact Info) Description 11/23/2022 Abstract [facility] [address] [facility] [place] [address] Palomo Bourgeois, [address] [facility] [place] [address] Social History Tobacco Use Types Packs/Day Years [...] Department Care Team (Late Contact Info) Description 03/29/2025 2:30 PM EDT Office Visit [facility] [address] [facility] [address] [place] [id number] Fabio Ferreira, KIA [address] [facility] [address] [place] [address] 04/19/2025 3:20 PM EST Office Visit [facility] [address] [place] [address] [place] [address] Paris Zuluaga PA [address] [facility] [address] [place], [facility] 11/05/2025 3:00 PM EDT Office Visit ANN ALARCON [address] [place] [address] [place] [address] Palomo Bourgeois DO [address] [place] [address] [address] [place], [place] [id number] documented as of this encounter Visit Diagnoses Not on filedocumented in this encounter
--- OUTSIDE RECORDS SUMMARY | 2025-03-21 16:47 | XMS_ITS | CCD ---
Author Organization [facility] Care Team Providers Care Day Spa Manager Name Role Phone CHRISTELLE ., DR BHAGAT [...] sources) NSAIDs Drug allergy (disorder) 2 [facility] Repository (8 sources) Non-steroidal anti-inflammator y agent Drug Intolerance 2 [facility] Work Phone: (8 sources) Non-steroidal anti-inflammator y agent Propensity to adverse reactions to drug 2 [facility] Work Phone: Medications Current Medications Medication [...] 3 03/01/2023 08/03/2023 Discontinued polyethylene glycol 3350 42686 mg powder for oral solution (1 source) [...] GDLNon AGE GDLN ACOG TESTING Note . [facility] Comment on above: TESTS RESULT FLAG UN ITS REF RANGE LAB Clinician Provided Cytology Information Source.............Cervix;Endocervix No. of containers..01 ThinPrep Vial Age Algo ACOG Lissa... 31 01 FLAG LEGEND: L-Low Normal,H-High Normal,LL-Alert Low,HH-Alert High <-Panic Low,>-Panic High,A-Abnormal,AA-Critical Abnormal Performed at: 01 =G [address] [id number] Sandra Almodovar MD, HPV APTIMA Negative Negative [facility] Comment on above: This nucleic acid am plification test detects fourteen high- risk HPV types (16,18,31,33,35,39,45,51,52,56,58,59,66,68) without differentiation. Performed at: =G - [facility] [id number] Consulting Practice Director: Sandra Almodovar MD, Phone: [phone] Performed at: - [facility] [id number] Consulting Practice Director: Sandra Almodovar MD, Phone: [phone] IGP, APTIMA HPV, RFX 16/18,45 Note . [facility] Comment on above: TESTS RESULT FLAG UN ITS REF RANGE LAB DIAGNOSIS: 02 NEGATIVE FOR INTRAEPITHELIAL LESION OR MALIGNANCY. Specimen adequacy: 02 Satisfactory for evaluation. Endocervical and/or squamous metaplastic cells (endocervical component) are present. Performed by: Dayanara Valentine, Traffic Engineering Director (ASCP) . 02 Note: Note 02 The [...] Low,>-Panic High,A-Abnormal,AA-Critical Abnormal Performed at: [address] [facility] [address] [place] [address] Sandra Almodovar MD, BRUSH-SPATULA CERVIX ENDOCERVIX [facility] Urinalysis macro (dipstick) panel (U)on 10-31-2024 Bilirubin, UA Negative Negative - 4(70) +++ mg/dL [facility] Blood, UA Negative Negative - 50 Brendan/mcL [facility] Clarity, UA Clear [facility] Color, UA Yellow [facility] Glucose, UA Negative Negative - 1999(110) ++++ mg/dL [facility] Interpretation and review of laboratory results Normal [facility] Ketones, UA Negative Negative - 160(16) ++++ mg/dL [facility] Leukocytes, UA Negative Negative - 500+++ Poncho/mcL [facility] Nitrite, UA Negative Negative - Positive [facility] pH, UA 7 5 - 9 [facility] Protein, UA Negative Negative - 1999(20) ++++ mg/dL [facility] Spec Grav, UA 1.025 1 - 1.03 [facility] Urobilinogen, UA 0.2 0.2 - 12 mg/dL [facility] CBC auto differentialon 07-09 Basophils (Bld) [#/Vol] 0.0 10*3/uL [facility] Basophils/100 WBC (Bld) 0.7 % [facility] Eosinophils (Bld) [#/Vol] 0.1 10*3/uL [facility] Eosinophils/100 WBC (Bld) 2.0 % [facility] Erythrocyte distribution width (RBC) [Ratio] 13.8 % 11.5 - 15.0 % [facility] Hematocrit (Bld) [Volume fraction] 41.2 % 35 - 47 % [facility] Hemoglobin (Bld) [Mass/Vol] 13.9 g/dL 11.7 - 15.5 g/dL [facility] Lymphocytes (Bld) [#/Vol] 1.7 10*3/uL [facility] Lymphocytes/100 WBC (Bld) 32.1 % [facility] MCH (RBC) [Entitic mass] 29.3 pg 27 - 34 pg [facility] MCHC (RBC) [Mass/Vol] 33.8 g/dL 32 - 36 g/dL [facility] MCV (RBC) [Entitic vol] 87 fL 80 - 100 fL [facility] Monocytes (Bld) [#/Vol] 0.6 10*3/uL [facility] Monocytes/100 WBC (Bld) 10.6 % [facility] Neutrophils (Bld) [#/Vol] 2.9 10*3/uL [facility] Neutrophils/100 WBC (Bld) 54.6 % [facility] Platelet mean volume (Bld) [Entitic vol] 8.4 fL 7 - 12 fL [facility] Platelets (Bld) [#/Vol] 244 10*3/uL [facility] RBC (Bld) [#/Vol] 4.75 10*6/uL [facility] WBC corrected for nucl RBC Auto (Bld) [#/Vol] 5.4 [facility] Cobalamin (Vitamin B12) [Mas s/Vol]on 08-03-2023 [facility] Ferritinon 08-03-2023 Ferritin [Mass/Vol] 39 ng/mL 11 - 307 ng/mL [facility] Ferritin [Mass/Vol]on 2023 [facility] Iron and TIBCon 08-03-2023 Interpretation and review of laboratory results Abnormal [facility] Iron [Mass/Vol] 59 ug/dL 50 - 170 ug/dL [facility] Iron binding capacity [Mass/Vol] 414 ug/dL 250 - 425 ug/dL [facility] Iron saturation [Mass fraction] 14 Low [facility] Vitamin B12on 08-03-2023 Cobalamin (Vitamin B12) [Mass/Vol] 275 pg/mL 180 - 914 pg/mL [facility] HEP B SURFACE ANTIGEN SCREEN on 09-08-2022 HBsAg Screen Negative Normal Negative [facility] Comment on above: Performed By: #### A 1C #### [facility] [address] [place] [address] Dr. Emilie Plascencia HEPATITIS C VIRUS AB W/ REFL EX QUANTon 09-08-2022 HCV AB Non-Reactive Normal Non Reactive [facility] Comment on above: Performed By: #### H CVPCRR #### [facility] [address] [place] [address] Dr. Emilie Plascencia Interpretation: Comment Normal [facility] Comment on above: Result Comment: Not infected with HCV unless early or acute infection is suspected (which may be delayed in an immunocompromised individual), or other evidence exists to indicate HCV infection. Performed By: #### H CVPCRR #### [facility] [address] [place] [address] Dr. Emilie Plascencia HIV 1 AND 2 WITH REFLEXon HIV Screen 4th Generation wRfx Non-Reactive Normal Non Reactive [facility] Comment on above: Result Comment: HIV Negative HIV-1/HIV-2 antibodies and HIV-1 p24 antigen were NOT detected. There is no laboratory evidence of HIV infection. Performed By: #### H IV12 #### [facility] [address] [place] [address] Dr. Emilie Plascencia RPR QUANTon 09-08-2022 Rapid Plasma Reagin, Quant Non-Reactive Normal NonRea<1:1 [facility] Comment on above: Result Comment: Yumi bernard Note: This test does not meet current guidelines for screening and diagnosis of syphilis. This test is intended for following treatment response in patients being treated for syphilis infection. To screen for syphilis infection, a reflex cascade that includes both RPR and a treponema-specific assay should be utilized, such as Treponema pallidum (Syphilis) Screening [place] (528939) or Rapid Plasma Reagin (RPR) Test With Reflex to Quantitative RPR and Confirmatory Treponema pallidum Antibodies (197250). Performed By: #### A 1C #### [facility] [address] [place] [address] Dr. Emilie Plascencia RUBELLA AB IGGon 09-08-2022 Rubella Antibodies, IgG 1.82 index Normal Immune >0.99 [facility] Comment on above: Result Comment: Non- immune <0.90 Equivocal 0.90 - 0.99 Immune >0.99 Performed By: #### R UBIGG #### [facility] [address] [place] [address] Dr. Emilie Plascencia BOX TEST SENT OUTon 09-06-19 SENT TO REF LAB 09/05/2022 Normal [facility] Comment on above: Performed By: #### A 1C #### [facility] [address] [place] [address] Dr. Emilie Plascencia CBC AUTO DIFFon 09-05-2022 BASO # 0.0 103/ul Normal 0.0-0.1 [facility] Comment on above: Performed By: #### C BC #### [facility] [address] [place] [address] Dr. Emilie Plascencia Basophils/100 WBC (Bld) 0.5 % Normal 0.2-2.0 [facility] Comment on above: Performed By: #### C BC #### [facility] [address] [place] [address] Dr. Emilie Plascencia EO # 0.1 103/ul Normal 0.0-0.7 [facility] Comment on above: Performed By: #### C BC #### [facility] [address] [place] [address] Dr. Emilie Plascencia Eosinophils/100 WBC (Bld) 1.2 % Normal 0.9-7.0 [facility] Comment on above: Performed By: #### C BC #### [facility] [address] [place] [address] Dr. Emilie Plascencia Erythrocyte distribution width (RBC) [Ratio] 12.8 % Normal 11.0-15.0 [facility] Comment on above: Performed By: #### C BC #### [facility] [address] [place] [address] Dr. Emilie Plascencia Hematocrit (Bld) [Volume fraction] 39.1 % Normal 36.0-48.0 [facility] Comment on above: Performed By: #### C BC #### [facility] [address] [place] [address] Dr. Emilie Plascencia Hemoglobin (Bld) [Mass/Vol] 12.9 g/dL Normal 12.0-16.0 [facility] Comment on above: Performed By: #### C BC #### [facility] [address] [place] [address] Dr. Emilie Plascencia IG # 0.04 10e3/ul Critically high 0.00-0.03 [facility] Comment on above: Performed By: #### C BC #### [facility] [address] [place] [address] Dr. Emilie Plascencia IG % 0.5 % Normal 0.0-0.5 [facility] Comment on above: Performed By: #### C BC #### [facility] [address] [place] [address] Dr. Emilie Plascencia LYMPH # 1.9 103/ul Normal 1.2-3.8 [facility] Comment on above: Performed By: #### C BC #### [facility] [address] [place] [address] Dr. Emilie Plascencia Lymphocytes/100 WBC (Bld) 23.7 % Normal 20.5-60.0 [facility] Comment on above: Performed By: #### C BC #### [facility] [address] [place] [address] Dr. Emilie Plascencia MANUAL DIFF REQ NO Normal [facility] Comment on above: Performed By: #### C BC #### [facility] [address] [place] [address] Dr. Emilie Plascencia MCH (RBC) [Entitic mass] 29.4 pg Normal 26.7-34.0 [facility] Comment on above: Performed By: #### C BC #### [facility] [address] [place] [address] Dr. Emilie Plascencia MCHC (RBC) [Mass/Vol] 33.0 g/dL Normal 29.9-35.2 [facility] Comment on above: Performed By: #### C BC #### [facility] [address] [place] [address] Dr. Emilie Plascencia MCV (RBC) [Entitic vol] 89.1 fL Normal 81.0-99.0 [facility] Comment on above: Performed By: #### C BC #### [facility] [address] [place] [address] Dr. Emilie Plascencia MONO # 0.5 103/ul Normal 0.3-0.8 [facility] Comment on above: Performed By: #### C BC #### [facility] [address] [place] [address] Dr. Emilie Plascencia Monocytes/100 WBC (Bld) 6.7 % Normal 1.7-12.0 [facility] Comment on above: Performed By: #### C BC #### [facility] [address] [place] [address] Dr. Emilie Plascencia NEUT # 5.4 103/ul Normal 1.4-6.5 [facility] Comment on above: Performed By: #### C BC #### [facility] [address] [place] [address] Dr. Emilie Plascencia Neutrophils/100 WBC (Bld) 67.4 % Normal 43.0-75.0 [facility] Comment on above: Performed By: #### C BC #### [facility] [address] [place] [address] Dr. Emilie Plascencia Platelet mean volume (Bld) [Entitic vol] 10.3 fL Normal 9.5-13.5 [facility] Comment on above: Performed By: #### C BC #### [facility] [address] [place] [address] Dr. Emilie Plascencia PLT 284 103/ul Normal 150-450 [facility] Comment on above: Performed By: #### C BC #### [facility] [address] [place] [address] Dr. Emilie Plascencia RBC 4.39 106/ul Normal 4.20-5.40 [facility] Comment on above: Performed By: #### C BC #### [facility] [address] [place] [address] Dr. Emilie Plascencia WBC 8.0 103/ul Normal 4.0-11.0 [facility] Comment on above: Performed By: #### C BC #### [facility] [address] [place] [address] Dr. Emilie Plascencia CULTURE URINEon 09-05-2022 CULTURE URINE Culture Observations : LIGHT GROWTH OF MIXED GENITAL ESCOBAR. NO POTENTIAL PATHOGENS SEEN. Normal [facility] Comment on above: Performed By: #### A 1C #### [facility] [address] [place] [address] Dr. Emilie Plascencia GLYCOHEMOGLOBIN A1Con 2022 ADA RECOMMENDATION SEE BELOW Normal [facility] Comment on above: Result Comment: ADA RECOMMENDED LIMIT 4.0 - 6.0 ADA THERAPEUTIC TARGET < 7.0 ACTION SUGGESTED > 7.0 Performed By: #### A 1C #### [facility] [address] [place] [address] Dr. Emilie Plascencia Glucose [Mass/Vol] 97 mg/dL Normal [facility] Comment on above: Performed By: #### A 1C #### [facility] [address] [place] [address] Dr. Emilie Plascencia HbA1c (Bld) [Mass fraction] 5.0 % Normal 4.5-6.2 [facility] Comment on above: Performed By: #### A 1C #### [facility] [address] [place] [address] Dr. Emilie Plascencia TSHon 09-05-2022 TSH 0.330 uIU/mL Critically low 0.358-3.740 [facility] Comment on above: Performed By: #### T SH #### [facility] [address] [place] [address] Dr. Emilie Plascencia TYPE AND SCREENon 09-05-2022 TYPE AND SCREEN Negative Normal [facility] Comment on above: Performed By: #### A 1C #### [facility] [address] [place] [address] Dr. Emilie Plascencia US PREG TVon 09-03-2022 [...] KEISHA KENT Date: 2022-09-03 15:33 Normal [facility] CBC AUTO DIFFon 08-09-2022 BASO # 0.0 103/ul Normal 0.0-0.1 [facility] Comment on above: Performed By: #### A 1C #### [facility] [address] [place] [address] Dr. Emilie Plascencia Basophils/100 WBC (Bld) 0.3 % Normal 0.2-2.0 [facility] Comment on above: Performed By: #### A 1C #### [facility] [address] [place] [address] Dr. Emilie Plascencia EO # 0.1 103/ul Normal 0.0-0.7 [facility] Comment on above: Performed By: #### A 1C #### [facility] [address] [place] [address] Dr. Emilie Plascencia Eosinophils/100 WBC (Bld) 1.4 % Normal 0.9-7.0 [facility] Comment on above: Performed By: #### A 1C #### [facility] [address] [place] [address] Dr. Emilie Plascencia Erythrocyte distribution width (RBC) [Ratio] 12.7 % Normal 11.0-15.0 [facility] Comment on above: Performed By: #### A 1C #### [facility] [address] [place] [address] Dr. Emilie Plascencia Hematocrit (Bld) [Volume fraction] 35.7 % Critically low 36.0-48.0 [facility] Comment on above: Performed By: #### A 1C #### [facility] [address] [place] [address] Dr. Emilie Plascencia Hemoglobin (Bld) [Mass/Vol] 12.0 g/dL Normal 12.0-16.0 [facility] Comment on above: Performed By: #### A 1C #### [facility] [address] [place] [address] Dr. Emilie Plascencia IG # 0.01 10e3/ul Normal 0.00-0.03 [facility] Comment on above: Performed By: #### A 1C #### [facility] [address] [place] [address] Dr. Emilie Plascencia IG % 0.2 % Normal 0.0-0.5 [facility] Comment on above: Performed By: #### A 1C #### [facility] [address] [place] [address] Dr. Emilie Plascencia LYMPH # 1.7 103/ul Normal 1.2-3.8 [facility] Comment on above: Performed By: #### A 1C #### [facility] [address] [place] [address] Dr. Emilie Plascencia Lymphocytes/100 WBC (Bld) 26.6 % Normal 20.5-60.0 [facility] Comment on above: Performed By: #### A 1C #### [facility] [address] [place] [address] Dr. Emilie Plascencia MANUAL DIFF REQ NO Normal [facility] Comment on above: Performed By: #### A 1C #### [facility] [address] [place] [address] Dr. Emilie Plascencia MCH (RBC) [Entitic mass] 29.3 pg Normal 26.7-34.0 [facility] Comment on above: Performed By: #### A 1C #### [facility] [address] [place] [address] Dr. Emilie Plascencia MCHC (RBC) [Mass/Vol] 33.6 g/dL Normal 29.9-35.2 [facility] Comment on above: Performed By: #### A 1C #### [facility] [address] [place] [address] Dr. Emilie Plascencia MCV (RBC) [Entitic vol] 87.3 fL Normal 81.0-99.0 [facility] Comment on above: Performed By: #### A 1C #### [facility] [address] [address] [address] Emilie Plascencia MONO # 0.5 103/ul Normal 0.3-0.8 [facility] Comment on above: Performed By: #### A 1C #### [facility] [address] [place] [address] Dr. Emilie Plascencia Monocytes/100 WBC (Bld) 6.9 % Normal 1.7-12.0 [facility] Comment on above: Performed By: #### A 1C #### [facility] [address] [place] [address] Dr. Emilie Plascencia NEUT # 4.2 103/ul Normal 1.4-6.5 [facility] Comment on above: Performed By: #### A 1C #### [facility] [address] [place] [address] Dr. Emilie Plascencia Neutrophils/100 WBC (Bld) 64.6 % Normal 43.0-75.0 [facility] Comment on above: Performed By: #### A 1C #### [facility] [address] [place] [address] Dr. Emilie Plascencia Platelet mean volume (Bld) [Entitic vol] 9.7 fL Normal 9.5-13.5 [facility] Comment on above: Performed By: #### A 1C #### [facility] [address] [place] [address] Dr. Emilie Plascencia PLT 256 103/ul Normal 150-450 [facility] Comment on above: Performed By: #### A 1C #### [facility] [address] [place] [address] Dr. Emilei Plascencia RBC 4.09 106/ul Critically low 4.20-5.40 [facility] Comment on above: Performed By: #### A 1C #### [facility] [address] [place] [address] Dr. Emilie Plascencia WBC 6.5 103/ul Normal 4.0-11.0 [facility] Comment on above: Performed By: #### A 1C #### [facility] [address] [place] [address] Dr. Emilie Plascencia ER URINE PROFILEon 3 Bilirubin Ql (U) Negative Normal NEGATIVE [facility] Comment on above: Performed By: #### E RUR #### [facility] [address] [place] [address] Dr. Emilie Plascencia Clarity (U) CLEAR Normal CLEAR [facility] Comment on above: Performed By: #### E RUR #### [facility] [address] [place] [address] Dr. Emilie Plascencia Color (U) LT. YELLOW Normal YELLOW [facility] Comment on above: Performed By: #### E RUR #### [facility] [address] [place] [address] Dr. Emilie Plascencia ERUANGELICA A micrscopic examination will be performed if indicated. Normal [facility] Comment on above: Performed By: #### E RUR #### [facility] [address] [place] [address] Dr. Emilie Plascencia Glucose Ql (U) Negative Normal NEGATIVE [facility] Comment on above: Performed By: #### E RUR #### [facility] [address] [place] [address] Dr. Emilie Plascencia Hemoglobin Ql (U) Negative Normal NEGATIVE [facility] Comment on above: Performed By: #### E RUR #### [facility] [address] [place] [address] Dr. Emilie Plascencia Ketones Ql (U) Negative Normal NEGATIVE [facility] Comment on above: Performed By: #### E RUR #### [facility] [address] [place] [address] Dr. Emilie Plascencia LEUKOCYTES Negative Normal NEGATIVE [facility] Comment on above: Performed By: #### E RUR #### [facility] [address] [place] [address] Dr. Emilie Plascencia Nitrite Ql (U) Negative Normal NEGATIVE [facility] Comment on above: Performed By: #### E RUR #### [facility] [address] [place] [address] Dr. Emilie Plascencia pH (U) 6.0 [pH] Normal 5-9 [facility] Comment on above: Performed By: #### E RUR #### [facility] [address] [place] [address] Dr. Emilie Plascencia SPEC GRAVITY 1.010 Normal 1.005-<=1.025 [facility] Comment on above: Performed By: #### E RUR #### [facility] [address] [place] [address] Dr. Emilie Plascencia UA PROTEIN Negative Normal NEGATIVE/ TRACE [facility] Comment on above: Performed By: #### E RUR #### [facility] [address] [place] [address] Dr. Emilie Plascencia UR MICRO IND NOT INDICATED Normal [facility] [facility] Comment on above: Performed By: #### E RUR #### [facility] [address] [place] [address] Dr. Emilie Plascencia Urobilinogen Qn (U) 0.2 {Barbara'U}/dL Normal 0.2 - 1. 0 [facility] Comment on above: Performed By: #### E RUR #### [facility] [address] [place] [address] Dr. Emilie Plascencai PREG QUANT HCGon 08-09-2022 HCG QUANT 05599 mIU/mL Normal [facility] Comment on above: Performed By: #### P REGQNT #### [facility] [address] [place] [address] Dr. Emilie Plascencia HCG RANGE SEE BELOW Normal [facility] Comment on above: Result Comment: 5-50 0.2-1 WEEK 50-500 1-2 WEEKS 100-5,000 2-3 WEEKS 500-10,000 3-4 WEEKS 1,000-50,000 4-5 WEEKS 10,000-100,000 5-6 WEEKS 15,000-200,000 6-8 WEEKS 10,000-100,000 2-3 MONTHS Performed By: #### P REGQNT #### [facility] [address] [place] [address] Dr. Emilie Plascencia PROF CHEM 8 (BAS METB)on Anion gap [Moles/Vol] 12.3 mmol/L Normal [facility] Comment on above: Performed By: #### A 1C #### [facility] [address] [address] [address] Emilie Plascencia Calcium [Mass/Vol] 8.9 mg/dL Normal 8.5-10.1 [facility] Comment on above: Performed By: #### A 1C #### [facility] [address] [address] [address] Emilie Plascencia Chloride [Moles/Vol] 107 mmol/L Normal 98-107 [facility] Comment on above: Performed By: #### A 1C #### [facility] [address] [address] [address] Emilie Plascencia CO2 [Moles/Vol] 26.6 mmol/L Normal 21.0-32.0 [facility] Comment on above: Performed By: #### A 1C #### [facility] [address] [address] [address] Emilie Plascencia Creatinine [Mass/Vol] 0.49 mg/dL Critically low 0.55-1.02 [facility] Comment on above: Performed By: #### A 1C #### [facility] [address] [address] [address] Emilie Plascencia EGFR-AF POLISH >60 Normal >=60 [facility] Comment on above: Performed By: #### A 1C #### [facility] [address] [address] [address] Emilie Plascencia EGFR-NON AF POLISH >60 Normal >=60 [facility] Comment on above: Performed By: #### A 1C #### [facility] [address] [address] [address] Emilie Plascencia Glucose [Mass/Vol] 93 mg/dL Normal 74-106 [facility] Comment on above: Performed By: #### A 1C #### [facility] [address] [address] [address] Emilie Plascencia Potassium [Moles/Vol] 3.9 mmol/L Normal 3.5-5.1 [facility] Comment on above: Performed By: #### A 1C #### [facility] [address] [address] [address] Emilie Plascencia Sodium [Moles/Vol] 142 mmol/L Normal 136-145 [facility] Comment on above: Performed By: #### A 1C #### [facility] [address] [address] [address] Emilie Plascencia Urea nitrogen [Mass/Vol] 10.0 mg/dL Normal 7.0-18.0 [facility] Comment on above: Performed By: #### A 1C #### [facility] [address] [address] [address] Emilie Plascencia Urea nitrogen/Creatinine [Mass ratio] 20.4 mg/mg Normal [facility] Comment on above: Performed By: #### A 1C #### [facility] [address] [address] [address] Emilie Plascencia US PREG TVon 08-09-2022 US PREG TV EXAM: US PREG TV INDICATION: Abnormal vaginal bleeding. COMPARISON: None for this . TECHNIQUE: Transvaginal pelvic ultrasound was performed. FINDINGS: Single intrauterine . Mean sac diameter: 1.3 cm, 5 weeks, 3 days Kent-rump length: 0.3 cm, 5 weeks, 6 days [...] ANITA HATFIELD Date: 2022-08-09 09:59 Normal [facility] PREG QUANT HCGon 06-05-2022 HCG QUANT <1 Normal [facility] Comment on above: Performed By: #### P REGQNT #### [facility] [address] [address] [address] Emilie Plascencia HCG RANGE SEE BELOW Normal [facility] Comment on above: Result Comment: 5-50 0.2-1 WEEK 50-500 1-2 WEEKS 100-5,000 2-3 WEEKS 500-10,000 3-4 WEEKS 1,000-50,000 4-5 WEEKS 10,000-100,000 5-6 WEEKS 15,000-200,000 6-8 WEEKS 10,000-100,000 2-3 MONTHS Performed By: #### P REGQNT #### [facility] [address] [place] [address] Dr. Emilie Plascencia PREG QUANT HCGon 05-27-2022 HCG QUANT 14 mIU/mL Normal [facility] Comment on above: Performed By: #### P REGQNT #### [facility] [address] [place] [address] Dr. Emilie Plascencia HCG RANGE SEE BELOW [facility] Comment on above: Result Comment: 5-50 0.2-1 WEEK 50-500 1-2 WEEKS 100-5,000 2-3 WEEKS 500-10,000 3-4 WEEKS 1,000-50,000 4-5 WEEKS 10,000-100,000 5-6 WEEKS 15,000-200,000 6-8 WEEKS 10,000-100,000 2-3 MONTHS Performed By: #### P REGQNT #### [facility] [address] [place] [address] Dr. Emilie Plascencia PREG QUANT HCGon 05-25-2022 HCG QUANT 17 mIU/mL Normal [facility] Comment on above: Performed By: #### A 1C #### [facility] [address] [place] [address] Dr. Emilie Plascencia HCG RANGE SEE BELOW [facility] Comment on above: Result Comment: 5-50 0.2-1 WEEK 50-500 1-2 WEEKS 100-5,000 2-3 WEEKS 500-10,000 3-4 WEEKS 1,000-50,000 4-5 WEEKS 10,000-100,000 5-6 WEEKS 15,000-200,000 6-8 WEEKS 10,000-100,000 2-3 MONTHS Performed By: #### A 1C #### [facility] [address] [place] [address] Dr. Emilie Plascencia Vital Signs Date Time Vital Sign Value Performing Clinician Facility 10-31-2024 15:02-0400 Body height 157.5 cm Olayinka Christelle DO Work Phone: [facility] 10-31-2024 15:02-0400 Body mass index (BMI) [Ratio] 34.11 kg/m2 Olayinka Christelle DO Work Phone: [facility] 10-31-2024 15:02-0400 Body weight 84.6 kg Olayinka Christelle DO Work Phone: [facility] 10-31-2024 15:02-0400 Diastolic blood pressure 82 mm[Hg] Olayinka Christelle DO Work Phone: [facility] 10-31-2024 15:02-0400 Systolic blood pressure 120 mm[Hg] Olayinka Christelle DO Work Phone: [facility] 04-10-2024 16:32-0500 Body height 157.5 cm Olayinka Christelle DO Work Phone: [facility] 04-10-2024 16:32-0500 Body mass index (BMI) [Ratio] 33.65 kg/m2 Olayinka Christelle DO Work Phone: [facility] 04-10-2024 16:32-0500 Body weight 83.46 kg Olayinka Christelle DO Work Phone: [facility] 04-10-2024 16:32-0500 Diastolic blood pressure 70 mm[Hg] Olayinka Christelle DO Work Phone: [facility] 04-10-2024 16:32-0500 Systolic blood pressure 118 mm[Hg] Olayinka Christelle DO Work Phone: [facility] 01-21-2024 14:12-0400 Body height 157.[address] [facility] 01-21-2024 14:12-0400 Body mass index (BMI) [Ratio] 33.3 kg/m2 [facility] 01-21-2024 14:12-0400 Body temperature 98.9 [degF] [facility] 01-21-2024 14:12-0400 Body weight 82.[address] [facility] 01-21-2024 14:12-0400 Diastolic blood pressure 81 mm[Hg] [facility] 01-21-2024 14:12-0400 Heart rate 76 /min [facility] 01-21-2024 14:12-0400 Respiratory rate 16 /min [facility] 01-21-2024 14:12-0400 SaO2% (BldA) [Mass fraction] 97 % [facility] 01-21-2024 14:12-0400 Systolic blood pressure 118 mm[Hg] [facility] 08-03-2023 09:35-0500 Body height 157.5 cm Pineda Rojas MD Work Phone: [facility] 08-03-2023 09:35-0500 Body mass index (BMI) [Ratio] 32.02 kg/m2 Pineda Rojas MD Work Phone: [facility] 08-03-2023 09:35-0500 Body weight 79.4 kg Pineda Rojas MD Work Phone: [facility] 08-03-2023 09:35-0500 Diastolic blood pressure 66 mm[Hg] Pineda Rojas MD Work Phone: [facility] 08-03-2023 09:35-0500 Heart rate 78 /min Pineda Rojas MD Work Phone: [facility] 08-03-2023 09:35-0500 Systolic blood pressure 138 mm[Hg] Pineda Rojas MD Work Phone: [facility] Encounters Encounter Date Encounter Type Care Provider Facility Start: 01-22-2025 End: 01-22-2025 Telephone encounter Shanita Chaves RN [facility] Start: 10-31-2024 End: 10-31-2024 Patient encounter procedure Olayinka Bourgeois DO Work Phone: [facility] Start: 10-31-2024 End: 10-31-2024 Periodic preventive med est patient 18-39 yrs Olayinka Bourgeois DO Work Phone: [facility] Comment on above: Well woman exam with routine gynecological exam Start: 10-31-2024 End: 10-31-2024 ambulatory OLAYINKA CHRISTELLE Not Available Start: 10-31-2024 End: 10-31-2024 Bamboo flowsheet Olayinka Christelle DO Work Phone: [facility] Start: 10-31-2024 End: 11-03-2024 Bamboo flowsheet Olayinka Chrsitelle DO Work Phone: [facility] Start: 10-31-2024 End: 11-03-2024 Clinisync Result Encounter Olayinka Christelle DO Work Phone: [facility] External Department Unsolicited Start: 05-03-2024 End: 05-03-2024 Phys/qhp telephone evaluation 5-10 min Olayinka Christelle DO Work Phone: [facility] Comment on above: History of uterine s car due to previous surgery Start: 04-10-2024 End: 04-10-2024 Office outpatient visit 15 minutes Olayinka Christelle DO Work Phone: [facility] Comment on above: H/O section ; Nausea; History of anemia; PCOS (polycystic ovarian syndrome) Start: 04-10-2024 End: 04-10-2024 ambulatory OLAYINKA CHRISTELLE Not Available Start: 04-10-2024 End: 04-10-2024 Bamboo flowsheet Olayinka Christelle DO Work Phone: [facility] Start: 04-10-2024 End: 04-10-2024 Bamboo flowsheet Olayinka Christelle DO Work Phone: [facility] Start: 04-10-2024 End: 04-10-2024 Telephone encounter Chelo Ness RN [facility] Comment on above: Surgical Or Dental C learance Type 1 von Willebran d disease ([facility]); Menorrhagia with regular cycle Start: 03-08-2024 End: 03-08-2024 Telephone encounter Chelo Ness RN [facility] Comment on above: Med Refill Start: 03-06-2024 End: 03-06-2024 Telephone encounter Chelo Ness RN [facility] Start: 01-21-2024 End: 01-21-2024 ambulatory [facility] Work Phone: Start: 01-21-2024 End: 01-21-2024 Patient encounter procedure [facility] Work Phone: Start: 11-08-2023 End: 11-08-2023 ambulatory OLAYINKA BOURGEOIS Not Available Start: 08-24-2023 Documentation procedure Freda Fishman [facility] Start: 08-03-2023 Orders Only Pineda Rojas MD Work Phone: [facility] Comment on above: Iron deficiency (Keshia korina Dx); Iron malabsorption; Type 1 von Willebrand disease ([facility]) Start: 08-03-2023 End: 08-03-2023 Office outpatient visit 15 minutes Pineda Rojas MD Work Phone: [facility] [place] Comment on above: Type 1 von Willebran d disease [facility] (Primary Dx); History of iron deficiency anemia [...] Td Vaccines (5 - Td or Tdap) [facility] Start: 11-05-2025 End: 11-05-2025 Patient encounter procedure 11/05/2025 3:00 PM EDT Office Visit [facility] [address] [place] [address] Olayinka Bourgeois, DO [address] [place], [place] [id number] [facility] Start: 11-04-2025 Screening for malign ant neoplasm of cervix Pap Smear [facility] Start: 02-05-2025 Influenza vaccination Influenza Vacc ine [facility] Start: 10-31-2024 End: 10-31-2024 Patient encounter procedure 10/31/2024 2:40 PM EDT Office Visit [facility] [address] [place] [address] Olayinka Bourgeois, DO [address] [place], [place] [id number] Arrived [facility] Comment on above: Arrived Start: 10-18-2024 End: 10-18-2024 Patient encounter procedure 10/18/2024 3:00 PM EDT Office Visit [facility] [address] [place] [address] Olayinka Bourgeois, DO [address] [place] [address] [facility] Start: 08-03-2024 Adult BMI Screening Adult BMI Screen ing [facility] Start: 08-03-2024 Depression Screening Depression Scre ening [facility] Start: 08-03-2024 Tobacco Screening Tobacco Screening [facility] Start: 05-02-2024 End: 05-02-2024 Patient encounter procedure 05/02/2024 8:00 AM EST Office Visit [facility] [address] [place] [id number] Olayinka Bourgeois, DO [address] [place] [address] [facility] Start: 04-10-2024 End: 04-10-2024 Patient encounter procedure 04/10/2024 3:20 PM EST Consult [facility] [address] [place] [address] Olayinka Bourgeois, DO [address] [place] [address] Arrived [facility] Comment on above: [...] ovarian syndrome) Expected: 04/10/2024 (Approximate), Expires: 04/10/2025 [facility] Comment on above: Expected: 04/10/2024 (Approximate), Expires: 04/10/2025 Start: 04-10-2024 End: 04-10-2025 Follicle stimulating hormone Follicle stimulating hormone Lab Routine History of anemia PCOS (polycystic ovarian syndrome) Expected: 04/10/2024 (Approximate), Expires: 04/10/2025 [facility] Comment on above: Expected: 04/10/2024 (Approximate), Expires: 04/10/2025 Start: 04-10-2024 End: 04-10-2025 hCG, quantitative, hCG, quantitative, Lab Routine History of anemia PCOS (polycystic ovarian syndrome) Expected: 04/10/2024 (Approximate), Expires: 04/10/2025 [facility] Work Phone: Comment on above: Expected: 04/10/2024 (Approximate), Expires: 04/10/2025 Start: 04-10-2024 End: 04-10-2025 Hemoglobin A1c/Hemoglobin.total in Blood Hemoglobin A1c Lab Routine History of anemia PCOS (polycystic ovarian syndrome) Expected: 04/10/2024 (Approximate), Expires: 04/10/2025 [facility] Comment on above: Expected: 04/10/2024 (Approximate), Expires: 04/10/2025 Start: 04-10-2024 End: 04-10-2025 Luteinizing hormone Luteinizing hormone Lab Routine History of anemia PCOS (polycystic ovarian syndrome) Expected: 04/10/2024 (Approximate), Expires: 04/10/2025 [facility] Comment on above: Expected: 04/10/2024 (Approximate), Expires: 04/10/2025 Start: 04-10-2024 End: 04-10-2025 Thyrotropin [Units/volume] in Serum or Plasma TSH Lab Routine History of anemia PCOS (polycystic ovarian syndrome) Expected: 04/10/2024 (Approximate), Expires: 04/10/2025 [facility] Comment on above: Expected: 04/10/2024 (Approximate), Expires: 04/10/2025 Start: 04-10-2024 End: 04-10-2025 Thyroxine (T4) free [Mass/volume] in Serum or Plasma T4, free Lab Routine History of anemia PCOS (polycystic ovarian syndrome) Expected: 04/10/2024 (Approximate), Expires: 04/10/2025 [facility] Comment on above: Expected: 04/10/2024 (Approximate), Expires: 04/10/2025 Start: 04-10-2024 End: 04-10-2025 US for US PELVIS-TRANSVAG IF INDICATED Imaging Routine History of anemia PCOS (polycystic ovarian syndrome) Expected: 04/10/2024 (Approximate), Expires: 04/10/2025 [facility] Comment on above: Expected: 04/10/2024 (Approximate), Expires: 04/10/2025 Start: 02-06-2024 Influenza vaccination Influenza Vacc ine [facility] Start: 10-20-2009 Adult BMI Follow Up Plan Adult BMI Follow Up Plan [facility] Cytology Cervical or vaginal smear or scraping study Pap Smear Pathology and Cytology Routine Well woman exam with routine gynecological exam Ordered: 10/31/2024 [facility] Work Phone: Comment on above: Ordered: 10/31/2024 Human papilloma viru s DNA [Presence] in Unspecified specimen by Probe with amplification HPV DNA probe, amplified Microbiology Routine Well woman exam with routine gynecological exam Ordered: 10/31/2024 [facility] Comment on above: Ordered: 10/31/2024 Immunizations Immunization Date Immunization Notes Care Provider Fa cili 03-30-2023 RHO(D) immune globul in- IV or IM Pineda Rojas MD Work Phone: [facility] 02-12-2023 influenza, injectabl e, quadrivalent, preservative free Pineda Rojas MD Work Phone: [facility] 02-12-2023 RHO(D) immune globul in- IV or IM Pineda Rojas MD Work Phone: [facility] 02-12-2023 influenza virus vacc ine, unspecified formulation Chelo Ness RN [facility] 12-31-2022 RHO(D) immune globul in- IV or IM Pineda Rojas MD Work Phone: [facility] 12-31-2022 tetanus toxoid, redu sami diphtheria toxoid, and acellular pertussis vaccine, adsorbed Pineda Rojas MD Work Phone: [facility] 10-16-2020 RHO(D) immune globul in- IV or IM Pineda Rojas MD Work Phone: [facility] 09-30-2020 tetanus toxoid, redu sami diphtheria toxoid, and acellular pertussis vaccine, adsorbed Pineda Rojas MD Work Phone: [facility] 09-17-2020 influenza, injectabl e, quadrivalent, preservative free Pineda Rojas MD Work Phone: [facility] 01-27-2018 RHO(D) immune globul in- IV or IM Pineda Rojas MD Work Phone: [facility] 01-27-2018 tetanus toxoid, redu sami diphtheria toxoid, and acellular pertussis vaccine, adsorbed Pineda Rojas MD Work Phone: [facility] 12-30-2016 RHO(D) immune globul in- IV or IM Pineda Rojas MD Work Phone: [facility] 08-14-2016 influenza, injectabl e, quadrivalent, preservative free Pineda Rojas MD Work Phone: [facility] 05-04-2007 human papilloma viru s vaccine, quadrivalent Pineda Rojas MD Work Phone: [facility] 05-04-2007 meningococcal polysaccharide (groups A, C, Y and W-135) diphtheria toxoid conjugate vaccine (MCV4P) Pineda Rojas MD Work Phone: [facility] 12-23-2005 hepatitis A vaccine, adult dosage Pineda Rojas MD Work Phone: [facility] 12-23-2005 hepatitis A vaccine, pediatric/adolescent dosage, 2 dose schedule Pineda Rojas MD Work Phone: [facility] 12-23-2005 hepatitis B vaccine, adult dosage Pineda Rojas MD Work Phone: [facility] 2005 hepatitis B vaccine, adult dosage Pineda Rojas MD Work Phone: [facility] 2005 hepatitis B vaccine, pediatric or pediatric/adolescent dosage Pineda Rojas MD Work Phone: [facility] 2005 tetanus toxoid, redu sami diphtheria toxoid, and acellular pertussis vaccine, adsorbed Pineda Rojas MD Work Phone: [facility] 2005 varicella virus vaccine Pineda Rojas MD Work Phone: [facility] Payers Date Payer Category Payer Private Health Insurance [id number] 2023 Private Health Insurance [id number] 2023 Managed Care Other (unspecified) [facility] [id number] 2023 Private Health Insurance [id number] 2020 [facility] [id number] 2020 [employer] Blue [employer]ie ld Managed Care - Other [employer] [id number] 2020 Unknown [employer] BCBS OUT OF STATE PPO/TRUST [id number] 2020-Present [phone] [id number] 1991 Unknown [id number] 1991 Unknown [id number] 1991 Unknown [id number] 1991 Unknown [id number] 1991 Unknown [id number] 1991 Unknown [id number] [id number] 1991 Unknown [id number] [id number] 1991 Unknown [id number] 1959 Unknown [id number] 1959 Unknown [id number] Worker's Compensation [facility] t Ind [id number] Social History Date Type Detail Facility Start: 12-31-2022 End: 01-21-2024 Tobacco smoking status NHIS Never smoked tobacco (finding) [facility] Start: 1990 Sex Assigned At Female F [facility] Start: 11-08-2023 End: 04-10-2024 Alcoholic beverage intake Lifetime non-drinker (finding) [facility] Start: 07-17-2020 End: 11-08-2023 History of Social function [facility] Start: 07-17-2020 End: 11-08-2023 Tobacco use panel [facility] Start: 05-15-2021 Gender identity Identifies as female gender (finding) [facility] Start: 12-31-2022 End: 04-10-2024 Tobacco use and exposure Smokeless tobacco non-user [facility] Start: 08-03-2023 Alcohol intake Current non-dr systems admin of alcohol (finding) [facility] How hard is it for you to pay for the very basics like food, housing, medical care, and heating Hard [facility] Adolescent depressio n screening assessment 0 [facility] Start: 07-29-2020 Education 15 [facility] Start: 01-08-2015 Sex Female (finding) [facility] NEGATED: Highlighted rowStart: NINF History of tobacco use Passive smoker [facility] Clinical Notes 08-03-2023 to 01-22-2025 Telephone Encounter [...] besides Tylenol as it is not helping. 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 Advised that she seeks emergency care if pain worsens as it could be something besides period related cramping as it is so severe. Patient states she has a history of cysts and this pain is similar. Advised contacting photoresist printer as well. Understanding verbalized. documented in this encounter [facility] 01-22-2025 Telephone encounter Note Phone call from patient. She is having intense uterine cramping and back pain that is leaving her in tears. She is due to begin menses tomorrow. Pain has not been this bad in years. She is asking if she can take something besides Tylenol as it is not helping. 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 Advised that she seeks emergency care if pain worsens as it could be something besides period related cramping as it is so severe. Patient states she has a history of cysts and this pain is similar. Advised contacting photoresist printer as well. Understanding verbalized. [facility] 10-31-2024 History of Present illness Narrative Reason for Appointment: Patient ID: [id number] Fermin is a 34 y.o. female who [...] carrier 04/18/2020 Type 1 von Willebrand disease ([facility] [facility]) 07/01/2006 Diastasis recti 11/08/2023 H/O section 11/08/2023 Resolved Ambulatory Problems Diagnosis Date Noted Hematologic disorder in mother affecting 05/28/2020 Iron deficiency anemia of mother during 08/05/2020 Rh negative state in antepartum period, third trimester 09/16/2020 Past Medical History: Diagnosis Date CF (cystic fibrosis) ([facility]) Gestational HTN 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[facility]) Miscarriage Need for rhogam due to Rh negative mother Von Willebrand disease ([facility]) HISTORY PAST MEDICAL HISTORY SOCIAL HISTORY Past Medical History: Diagnosis Date CF (cystic fibrosis) ([facility]) Gestational HTN 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 Exam conducted with a pantry cook present. Vitals: Estimated body mass index is [...] Olayinka Bourgeois DO documented in this encounter [facility] 05-03-2024 History of Present illness Narrative Reason for Appointment: Patient ID: Marylin Fermin is a 33 y.o. female who presents for No chief complaint on file. Patient presents today via telephone call for a telehealth appointment. Patients Phone #: [phone] (mobile) Current Medications: has a current medication list which includes the following prescription(s): cholecalciferol, cholecalciferol, citalopram, cyanocobalamin, and . Medical History: Active Ambulatory Problems Diagnosis Date Noted Missed period 11/03/2022 Cystic fibrosis carrier 04/18/2020 Type 1 von Willebrand disease ([facility]) 07/01/2006 Diastasis recti 11/08/2023 H/O section 11/08/2023 Resolved Ambulatory Problems Diagnosis Date Noted Hematologic disorder in mother affecting 05/28/2020 Iron deficiency anemia of mother during 08/05/2020 Rh negative state in antepartum period, third trimester 09/16/2020 Past Medical History: Diagnosis Date CF (cystic fibrosis) ([facility]) Gestational HTN 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 Social [...] Olayinka Bourgeois DO documented in this encounter [facility] 04-10-2024 History of Present illness Narrative Reason [...] carrier 04/18/2020 Type 1 von Willebrand disease ([facility]) 07/01/2006 Diastasis recti 11/08/2023 H/O section 11/08/2023 Resolved Ambulatory Problems Diagnosis Date Noted Hematologic disorder in mother affecting 05/28/2020 Iron deficiency anemia of mother during 08/05/2020 Rh negative state in antepartum period, third trimester 09/16/2020 Past Medical History: Diagnosis Date CF (cystic fibrosis) ([facility]) Gestational HTN 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[facility]) Miscarriage Need for rhogam due to Rh negative mother Von Willebrand disease ([facility]) HISTORY PAST MEDICAL HISTORY SOCIAL HISTORY Past Medical History: Diagnosis Date CF (cystic fibrosis) ([facility]) Gestational HTN 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] pended to Dr. Rojas. Clearance faxed via [place]. documented in this encounter [facility] 04-10-2024 Telephone encounter Note Incoming patient message regarding surgery r/t a broken finger tomorrow, 04/11/24. Per Dr. Rojas's plan: TXA TID x 5 days, first dose being 1-2 hours prior to sx. Fax number for surgeon per patient message: LVM to patient to review plan and confirm pharmacy. Also to verify surgeon we are to fax clearance to. [facility] 04-10-2024 Telephone encounter Note PC from patient, confirmed pharmacy and reviewed plan. Patient verbalized understanding. Script pended to Dr. Rojas. Clearance faxed via [place]. [facility] 03-08-2024 Miscellaneous Notes PC to patient to confirm pharmacy for menses TXA refill. [facility] [place] is preferred [facility]. Updated in [place]. documented in this encounter [facility] 03-08-2024 Telephone encounter Note PC to patient to confirm pharmacy for menses TXA refill. [facility] 03-08-2024 Telephone encounter Note [facility] [place] is preferred [facility]. Updated in [place]. [facility] 03-06-2024 Miscellaneous Notes PC to patient to [...] Patient verbalized understanding. documented in this encounter [facility] 03-06-2024 Telephone encounter Note PC to patient [...] a hematoma does form to give the [facility] a call back. Patient verbalized understanding. [facility] 08-24-2023 History of Present illness Narrative Called and spoke with patient to scheduled iv iron on 08/18/23. She said she doesn't know if she can get off work and will call back to schedule. documented in this encounter [facility] 08-03-2023 History of Present illness Narrative Pt is here for 6 month follow up. Pt denies any bleeding issues. She reports being very dizzy the past couple of days and is having some neck pain. She is taking oral iron tablets and will need a refill. She has extreme fatigue. Images from the original note were not included. [facility] PEDIAT[facility]IC BENIGN HEMATOLOGY PEDIATRIC THROMBOPHILIA Dr.Dagmar Di Rojas OUTPATIENT FOLLOW-UP NOTE: [facility] Patient ID: Marylin Fermin, 32 y.o. female PCP: Amy Sullivan, GREY GOODS EXAMINER-HEAD BANQUET WAITRESS : 1990 CHIEF COMPLAINT: Chief Complaint Patient presents with Follow-up HISTORY OF PRESENT ILLNESS: Marylin Fermin is a 32 y.o. female with history of type 1 von willebrand disease who presents today for follow-up at the [facility] due to recent . She [...] 1 von Willebrand's disease. This was diagnosed [facility] in 2006 (age 16) when she developed [...] - 1 unit platelets prior per previous apple solutions consultant-unclear indication 10/15/2020 Surgery Delivery of baby girl. [...] 12/29/2016 Performed by Mel Luz MD at [facility] OR REPEAT N/A 10/15/2020 Performed by Vinicius Rosario MD at [facility] OR REPEAT N/A 01/25/2018 Performed by Ariel Ford MD at [facility] OR REPEAT TUBAL LIGATION N/A 03/29/2023 Performed by Keisha Baugh MD at [facility] OR INCISION AND DRAINAGE 03/30/2023 PAST [...] father were negative. SOCIAL HISTORY: Lives in [place], [place] with her family. 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 1. Type 1 von willebrand disease: Diagnosed based on low VWD levels (30% for Ristocetin at [facility]) in the setting of type A blood in 2006 (age 16). Multimers showed decrease in all multimers at that time. The patient was apparently diagnosed with type 1 VWD. Repeat VWD labs in 04/2023 showed antigen of 56, activity of 49, factor 8 of 69, and normal multimers. - Stable currently. - Anticipatory guidance given. - Notify [facility] of any upcoming surgeries or procedures. - No current menstrual bleeding (as ), but has used TXA PRN for menorrhagia in the past. - Our psychiatric social worker supervisor met with the patient today during this [...] year and PRN. Pineda Rojas MD Adult Clinical Research Scientist [facility] Pager: [phone] Pt is a 32 year old female with vWD, here today with her , and 3 children Agreeable to meet with , family remained in the room Marylin resides in the [facility] with her Francisco (not affected), daughter Wayland 2 (vWD) and son Josiah (vWD) brother Ventura (not tested). There are no major bleeding concerns, she is currently still breast feeding Ventura, and has not had a period. There are no upcoming surgeries. 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 No major financial concerns reported today, family seems able to meet basic needs of the home. Insurance: family has commercial insurance. Family has submitted financial documents for [facility] approval, and have been approved through 03/09/24 [...] psychosocial issues identified, sw encouraged particpation with [employer] activities, Camp, [facility], [employer], etc. Parents will consider camp for Josiah Much support provided Isidro FRIAS documented in this encounter [facility] Evaluation note No assessment inform ation available [facility] Work Phone: Evaluation note Diagnosis H/O section [...] Von Willebrand's disease documented [facility]* Diagnosis Type 1 von Willebrand disease (CMS-HCC)- Primary Von Willebrand's disease History of iron deficiency anemia Personal history of diseases of blood and blood-forming organs [facility] Diagnosis Type 1 von Willebrand disease (CMS-HCC) Von Willebrand's disease Menorrhagia with regular cycle documented in this encounter [facility]* Diagnosis Well woman exam with routine gynecological exam Routine gynecological examination documented in this encounter [facility]ructionsNot on filedocumented in this [facility]Pro[facility]* Attachments The following attachments cannot be sent through Care Everywhere. * Taking care of bruises (Georgian) documented in this [facility]Pro[facility] SystemInstructionsNot on file documented in this encounterProMer[facility] SystemInstructionsNot on file documented in this encounterProMercy Health [facility] SystemInstructionsNot on file documented in this encounterProMercy Health St[facility] SystemInstructionsNot on file documented in this encounterProMercy Health St[facility] SystemInstructionsNot on file documented in this encounterProMercy Health St[facility] SystemInstructionsNot on file [facility] Summary Purpose Family History Relationship [...] DATE CREATED AUTHOR AUTHOR'S ORGANIZ ATION 11/03/2024 [facility] d[facility] Specialists EPIC Care Teams (unrecognized sec tion and content) Team Status: Active Member Role Status Dates Services Family Health Primary Care Provider Active Team Status: Inactive Member Role Status Dates Services Family Health Primary Care Provider Active Start: January 21, 2024 End: January 21, 2024 Fiona Smith APRN Attending Provider Active Start: January 21, 2024 End: January 21, 2024 Day Spa Manager Relationship Specialty Start Date End Date Amy Sullivan APRN-HEAD BANQUET WAITRESS [address] [place] [address] PCP - General Family Medicine 05/28/20 Day Spa Manager Relationship Specialty Start Date End Date Amy Sullivan GREY [employer] EXAMINER-HEAD [employer]ANQUET WAITRESS [address] [place] [address] PCP - General Family Medicine 05/28/20 Day Spa Manager Relationship Specialty Start Date End Date Amy Sullivan GREY GOODS EXAMINER-HEAD BANQUET WAITRESS [address] [place] [address] PCP - General Family Medicine 05/28/20 Day Spa Manager Relationship Specialty Start Date End Date Amy Sullivan GREY GOODS EXAMINER-HEAD BANQUET WAITRESS [address] [place] [address] PCP - General Family Medicine 05/28/20 Day Spa Manager Relationship Specialty Start Date End Date Amy Sullivan GREY GOODS EXAMINER-HEAD BANQUET WAITRESS [address] [place] [address] PCP - General Family Medicine 05/28/20 Day Spa Manager Relationship Specialty Start Date End Date Amy Sullivan GREY GOODS EXAMINER-HEAD BANQUET WAITRESS [address] [place] [address] PCP - General Family Medicine 05/28/20 Day Spa Manager Relationship Specialty Start Date End Date Amy Sullivan GREY GOODS EXAMINERERMA [address] [place] [address] PCP - General Family Medicine 05/28/20 Day Spa Manager Relationship Specialty Start Date End Date Amy Sullivan APRERMA [address] [place] [address] PCP - General Family Medicine 05/28/20 Goals [...] BE BASED ON THE PRIMARY CLINICAL RECORDS. [employer]. provides no warranty or guarantee of the accuracy or completeness of information in this document.
--- OUTSIDE RECORDS SUMMARY | 2025-03-21 16:48 | XMS_ITS | Encounter Summary ---
Author Organization [facility] Address [address] [place] [address] Care Team Providers Care Ctrs Name Role Phone Unavailable Primary Care Provider Unavailabl e Encounter Details Date Type Department Care Team (Late st Contact Info) Description 03/21/2025 Telephone [facility] [address] [place] [address] [place] [address] Kely Cannon LPN Social History Tobacco Use Types Packs/Day Years [...] on file documented as of this encounter Miscellaneous Notes * Telephone Encounter - Kely Cannon LPN - 03/21/2025 4:43 PM EDT 4:43pm Spoke with Brenda at [facility] and she voiced that patient brought over labs that were ordered by Paris Zuluaga and that patient voiced that she also had labs ordered by Dr. Christelle heredia ago and would like to have those done as well. Informd Brenda that these were ordered from 04/2024, but would be sentover and there were a few duplicates that were also ordered by Paris. Brenda voiced that she will compared the labs an ensure that patient has them all drawn. Kely Peralta LPN documented in this encounter Plan of Treatment Upcoming Encounters Date Type Department Care Team (Late st Contact Info) Description 03/29/2025 2:30 PM EDT Office Visit [facility] [address] [facility] [address] [place] [id number] Fabio Ferreira, KIA [address] [facility] [address] [place] [address] 04/19/2025 3:20 PM EST Office Visit [facility] [address] [facility] [place] [address] Paris Zuluaga PA [address] [facility] [place] [address] 11/05/2025 3:00 PM EDT Office Visit [facility] [address] [facility] [place] [address] Palomo Bourgeois DO [address] [facility] [place] [address] documented as of this encounter Visit Diagnoses Not on filedocumented in this encounter
--- OUTSIDE RECORDS SUMMARY | 2025-03-21 16:48 | XMS_ITS | Patient Health Record ---
Author Organization [facility] vices Address [address] [place] [place], [place] [id number] Care Team Providers Care Aml Analyst Name Role Phone Tera Hill Unavailable [phone] Kelly Sheffield Unavailable [phone] Allergies No Known Allergies Reason For Referral No Information Medications Medication SIG (Take, Route, Frequency, Duration) Notes Start Date End Date Status predniSONE 10 MG 1 tablet Orally as directed; Duration: 12 days Take 4 pills orally for 3 days. Then, Take 3 pills orally for 3 days. Then, Take 2 pills orally for 3 days. Then, Take 1 pill orally for 3 days. Then stop. 04/14/2022 Active Ondansetron HCl 8 MG 1 tablet as needed Orally every 8 hours; Duration: 5 days 05/22/2022 Active Cyclobenzaprine HCl 10 MG 1 tablet as needed Orally Once a day; Duration: 20 days 04/14/2022 Active Social History Tobacco Use: Social History Observation Description Date Details (start date - stop date) Never Smoker NA - NA Tobacco Use/Smoking Question Answer Notes Tobacco use: nonsmoker Problems Problem Type SNOMED Code ICD Code Onset Dates Problem Status W/U Status Risk Notes Problem Tinea pedis (5260916) Tinea pedis (B35.3) Active confirmed Comment:Signi ficant, entire plantar surface of feet. Will retry topical azole ,cannot do systemic d/t patient . advised can try warm soaks with epsom salt, tea tree oil, use pumice stone for dry skin, apply lotion. notify office if persistent after done ., Problem Ankle pain (687309296) Ankle pain (M25.579) Active confirmed Comment:s/p achilles tendon rupture in 2014 having pain in ankle on fairly constant basis even at rest. worsens w/ activity on exam there is swelling noted over posterior ankle/jie s area advised to contact workers comp to check status of case whether open or closed if closed will need referral back to ortho, Problem Onychomycosis (614961663) Onychomycosis (B35.1) Active confirmed Comment:chron ic, has not responded to OTC medications. advised can only try topicals again d/t patient still . if ineffective & once done nursing could try systemic therapy. advised keeping feet dry, nails well-trimmed. , Encounters Encounter Location Date Provider Diagnosis Main [address] [facility] [place] [id number] 10/04/2024 Kelly Sheffield Plan Of Treatment No Information Insurance Providers Payer Name Payer Address Payer Phone Subscriber Number Group Number Insured Name Patient Relationship to Insured Coverage Start Date Coverage End Date Neela bs [address] [place], [place] [id number] 2000 [id number] Elías Valenciaton Spouse - patient is the spouse of the insured 1 [employer] [address] [place], [place] [id number] [id number] ErikTai soliza Self - patient is the insured 2 2 Medical (General) History Medical History History ICD Code Post Depression, COMMENTS: Navjot Rabago Surgical History Surgery Date(Month/Year) Delivery - 3
--- OUTSIDE RECORDS SUMMARY | 2025-03-21 16:48 | XMS_ITS | Encounter Summary ---
Author Organization [facility] Address [address] [place] [address] Care Team Providers Care Hardwood Floor Finisher Name Role Phone Unavailable Primary Care Provider Unavailabl e Encounter Details Date Type Department Care Team (Latest Contact Info) Description 03/14/2025 Travel Social History Tobacco Use Types Packs/Day [...] EDT Office Visit [facility] [address] [facility] [address] [place] [phone] Fabio Ferreira DPRoss [address] [facility] 5 [place] [address] 04/19/2025 3:20 PM EST Office Visit [facility] [address] [place] [address] Paris Zuluaga PA [address] [facility] [place] [address] 11/05/2025 3:00 PM EDT Office Visit [facility] [address] [place] [address] Palomo Bourgeois DO [address] [place] [address] [place] [address] documented as of this encounter Visit Diagnoses Not on filedocumented in this encounter
--- OUTSIDE RECORDS SUMMARY | 2025-03-21 16:48 | XMS_ITS | Encounter Summary ---
Author Organization [facility] Address [address] [place] [address] Care Team Providers Care Book Coverer Name Role Phone Unavailable Primary Care Provider Unavailabl e Encounter Details Date Type Department Care Team (Late Contact Info) Description 11/23/2022 External Result Encounter [facility] [place] [facility] [address] [facility] [place] [address] Olayinka Bourgeois DO [address] [facility] [place] [address] Social History Tobacco Use Types Packs/Day Years [...] EDT Office Visit [facility] [address] [facility] 120 [place] [address] Fabio Ferreira, DPRoss [address] [facility] 5 [place] [address] 04/19/2025 3:20 PM EST Office Visit ANN [facility] [address] [place] [address] [place] [address] Paris Zuluaga PA [address] [facility] [address] [place], [place] [id number] 11/05/2025 3:00 PM EDT Office Visit ANN AL[facility]CON [address] [facility] [place] [address] Olayinka Bourgeois DO [address] [facility] [address] [place], [place] [id number] documented as of this encounter Procedures Procedure Name Priority Date/Time Associated Diagnosis Comments US OB 14+ WEEKS ANATOMY SCAN 11/23/2022 12:03 PM EDT documented in this encounter Results * US OB 14+ weeks anatomy scan (11/23/2022 12:03 PM EDT) Anatomical Region Laterality Modality Body Ultrasound 11/23/2022 12:0 3 PM EDT Narrative 11/23/2022 12:03 PM EDT THIS EXAM WAS PERFORMED AT [facility] REPORT (Signed Final 11/23/2022 12:03) PATIENT INFO: ID #: [id number] : [birth year] (32 yrs)(F) Name: ELOY FERMIN Visit Date: 11/23/2022 10:57 PERFORMED BY: Attending: Fabrice Resendez MD Performed By: Irasema Orellana RDMS Referred By: Olayinka Snyder. Address: [address] [place] [address] [place] [address] Location: [facility] SERVICE(S) PROVIDED: Comprehensive Anatomic Survey 13470 OB Transvaginal 71155 INDICATIONS: Screening for anatomic survey Z36.89 Screening [...] Appears Normal Interventr. Septum: Appears Normal Cardiac [place]: Appears normal Diaphragm: Appears normal 3 Vessel [...] = 4.6 cm. RECOMMENDATIONS: 1. Please see [facility] consultation documentation from today's encounter. 2. Subsequent follow up or other follow up as clinically determined by primary OB provider unless otherwise specified by [facility]. 3. Results forwarded to ordering provider so they can follow up with the patient as necessary. The copy-to physician of this order is OLAYINKA Alas The ordering physician of this order is FABRICE Armendariz Procedure Note Radiology, Radiologist, - 11/23/2022 THIS EXAM WAS PERFORMED AT [facility] REPORT (Signed Final 11/23/2022 12:03) PATIENT INFO: ID #: [id number] : [birth year] (32 yrs)(F) Name: ELOY FERMIN Visit Date: 11/23/2022 10:57 PERFORMED BY: Attending: Fabrice Resendez MD Performed By: Irasema Orellana RDMS Referred By: Olayinka Bourgeois DO Ref. Address: [address] [place] [address] [place] [address] Location: [facility] SERVICE(S) PROVIDED: Comprehensive Anatomic Survey 01446 OB Transvaginal 79172 INDICATIONS: Screening for anatomic survey Z36.89 Screening [...] Appears Normal Interventr. Septum: Appears Normal Cardiac [place]: Appears normal Diaphragm: Appears normal 3 Vessel [...] = 4.6 cm. RECOMMENDATIONS: 1. Please see [facility] consultation documentation from today's encounter. 2. Subsequent follow up or other follow up as clinically determined by primary OB provider unless otherwise specified by [facility]. 3. Results forwarded to ordering provider so they can follow up with the patient as necessary. The copy-to physician of this order is OLAYINKA Alas The ordering physician of this order is FABRICE Armendariz us Olayinka Bourgeois DO IMG OB US PROCEDURES Final Resul t documented in this encounter Visit Diagnoses Not on filedocumented in this encounter
--- OUTSIDE RECORDS SUMMARY | 2025-03-21 16:48 | XMS_ITS | Clinical Summary ---
Author Organization [facility] Address [address] [place] [address] Care Team Providers Care Account Receivable Associate Name Role Phone Unavailable Primary Care Provider Unavailabl e Allergies Active Allergy Reactions Criticality Noted Date Comments Nsaids 09/20/2021 Clotting disorder Medications cholecalcifero l (Vitamin D-3) 25 MCG (1000 UT) capsule Vitamin D3 Active cyanocobalamin (Vitamin B-12) 100 MCG tablet Vitamin B12 Act sita 27-1 MG tablet 1 (one) time each day at the same time. Active tranexamic acid (Lysteda) 650 MG tablet tablet Take 1,300 mg by mouth in the morning and 1,300 mg at noon and 1,300 mg in the evening. 5 03/26/20 25 Active metFORMIN XR (Glucophage-XR ) 500 MG 24 hr tabletIndicati ons:Encounter for weight management Take 1 tablet (500 mg) by mouth in the evening. Take with meals Do not crush, chew, or split. 30 tablet 11 5 04/20/20 25 Active citalopram (CeleXA) 20 MG tabletIndicati ons: anxiety (HHS-HCC) Take 1 tablet (20 mg) by mouth in the morning. 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/s at [facility] secondary to her vWD, factor availability, and [...] state in antepar abdirahman period, third trimester ([facility]) 09/16/2020 03/30/2023 Overview (01/05/2023): Rec'd Rhogam 08/03/20 Iron deficiency anemia of mo ther during ([facility]) 08/05/2020 03/30/2023 Overview (01/05/2023): Has referral for iron infusion 07/29/20 Ferritin 6 09/17/20 9.6/30 MCV 81 10/01/20 Bld Mgmt working on request for injectafer as patient cannot take off 5 days for venofer Hematologic disorder in moth er affecting ([facility]) 05/28/2020 03/30/2023 Encounters Date Type Department Care Team Description 03/21/2025 3:10 PM EDT Office Visit [facility] [place] [facility] [address] [place] [address] [place] [address] Palomo Bourgeois DO Encounter for weight management 03/21/2025 Telephone [facility] [place] [facility] [address] [facility] [place] [address] Kely Cannon LPN 03/21/2025 Bamboo flowsheet [facility] [place] [facility] [address] [facility] [place] [address] Palomo Bourgeois DO 03/14/2025 Travel from Last 3 Months Family History Relation Name Status Comments Brother 1 Alive Brother 2 Alive Daughter 1 [place] Alive Daughter 2 [place] Alive Father Mother Alive Sister 1 Alive [...] Mass Index 33.2 03/21/2025 3:30 PM EDT Plan of Treatment Upcoming Encounters Date Type Department Care Team (Late st Contact Info) Description 03/29/2025 2:30 PM EDT Office Visit [facility] [address] [facility] 120 [place] [address] Fabio Ferreira DPM [address] [facility] [address] [place] [address] 04/19/2025 3:20 PM EST Office Visit [facility] [place] [facility] [address] [facility] [place] [address] Paris Zuluaga PA [address] [facility] [address] [place], [facility] 11/05/2025 3:00 PM EDT Office Visit ANN ALARCON [address] [facility] [place] [address] Palomo Bourgeois DO [address] [facility] [address] [place], [facility]11 Insurance [facility]
--- OUTSIDE RECORDS SUMMARY | 2025-03-21 16:48 | XMS_ITS | Patient Health Record ---
Author Organization [facility] Address [address] [place] [address] Care Team Providers Care Central Office Operator Name Role Phone Laurie Amy Primary Care Provider Niko Sage Unavailable [phone] Luli Hudson Unavailable Allergies Allergen (clinical drug ingredient) Drug/Non Drug Allergy documented on EMR Reaction Allergy Type Onset Date Status NSAIDS (uncoded) Unknown Allergy Act sita Results Component Value Reference Range Notes SCC- FINGER 3 VIEW RIGHT 731 40 Reviewed date:04/20/2024 10:58:50 AM Interpretation: Performing Lab: Notes/Report: SCC- HAND 3 VIEW RIGHT 18875 Reviewed date:04/20/2024 10:58:56 AM Interpretation: Performing Lab: Notes/Report: PTT Reviewed date:06/13/2024 10:51:34 AM Interpretation: Performing Lab: Notes/Report: Chem 8, Venous Reviewed date:06/13/2024 10:51:29 AM Interpretation: Performing Lab: Notes/Report: Surgery Scheduling Reviewed date:04/20/2024 10:58:41 AM Interpretation: Performing Lab: Notes/Report: Primary Insurance Company: [facility] Surgeon/Assist: CHRISTA Surgery Location: [facility] Surgery Date & Time: 04/11/24 Surgery End Time: ONE HOUR Procedure: OPEN REDUCTION INTER NAL FIXATION RIGHT SMALL FINGER DISTAL PHALANX FRACTURE, 81387 Special Equipment: KWIRES C-Arm: YES Diagnosis: S62.636 Admission Type: OUTPATIENT Anesthesia Type/CPNB: GENERAL/BLOCK Post-op Appointment Date: 2 WEEKS Latex Allergy NO Lab Location: [facility] Visiting Nurse: MARIA LUISA CBC with diff, BMP, EKG [...] Lab: Notes/Report: Reason For Referral Reason APPROVED [facility]. ......04/11.............PLEASE OBTAIN AUTHORIZATION FOR OPEN REDUCTION INTERNAL FIXATION RIGHT SMALL FINGER DISTAL PHALANX FRACTURE Diagnosis 1 Closed displaced fra cture of distal phalanx of right little finger, initial encounter (S6.908Y) Referral Organization [facility] Referring Provider First Name Niko Referring Provider Last Name Christa Referring Provider Speciality Orthopedic Surgery Referred Organization [facility] Referred Address [address] [place], [place],[address], Procedure 1 ORIF of distal phala ngeal (22684) General Notes Gertrude Norton 2023 11:20:44 AM > req Cierra laura Tammy 04/10/2024 11:49:47 AM >Indra Nichols 04/10/2024 11:46:17 >Cpt code 34379, Gertrude Norton 04/10/2024 11:57:44 AM > APPROVED Auth #[id number], Valid 04/11/2024 - 07/10/2024, auth scanned in. No precert required for secondary ins, [employer] per code die drawing checker. [employer] is active per Availity, Referral Priority Stat [...] Problem Status W/U Status Risk Notes Problem [id number] Displaced fracture of distal phalanx of right little finger, subsequent encounter for fracture with routine healing (S62.636D) Active confirmed Problem [id number] Closed displaced fracture of distal phalanx of right little finger, initial encounter (S62.636A) Active confirmed Vital Signs Height 5'2 in 07/17/2024 Weight 180 lbs 07/17/2024 BMI 32.92 07/17/2024 Encounters Encounter Location Date Provider Diagnosis [facility] [address] [facility] [place] [address] 04/10/2024 Niko [place] Closed displaced fracture of distal phalanx of right little finger, initial encounter S62.636A [facility] [address] [facility] [place] [address] 04/11/2024 Niko [place] Displaced fracture of distal phalanx of right little finger, initial encounter for closed fracture S62.636A [facility] [address] [facility] [place] [address] 04/24/2024 Niko [place] Closed displaced fracture of distal phalanx of right little finger, initial encounter S62.636A [facility] [address] [facility] [place] [address] 06/12/2024 Niko [place] Displaced fracture of distal phalanx of right little finger, subsequent encounter for fracture with routine healing S62.636D [facility] [address] [facility] [place] [address] 07/17/2024 [place] Displaced fracture of distal phalanx of right little finger, subsequent encounter for fracture with routine healing S62.636D [facility] [facility] [address] [facility] [place] [address] 08/21/2024 Luli [facility] Displaced fracture of distal phalanx of right little finger, subsequent encounter for fracture with routine healing S62.636D [facility] [address] [facility] [place] [address] 04/07/2024 Niko Leonard [facility] [address] [place] [address] 05/19/2024 Niko Leonard [facility] [facility] [address] [place] [address] 05/19/2024 Niko [place] [facility] [place] [facility] [address] [place] [address] 06/01/2024 Niko [place] [facility] [facility] [address] [place] [address] 06/01/2024 Niko Leonard [facility] [facility] [address] [address] 07/03/2024 Niko Leonard [facility] [place] [facility] [address] [place] [address] 07/03/2024 Niko Leonard [facility] [facility] [address] [place] [address] 08/15/2024 [facility] [address] [facility] [address] [place] [address] [place] [address], [place] [address] 12/11/2024 Niko Leonard Assessments Encounter Date Diagnosis (ICD [...] work on restoring motion. She has a [id number] that is a therapist and prefers to get treated by her baminl-cn-ugu. She will follow-up in 4 weeks to [...] Order Date SCC- HAND 3 VIEW RIGHT [address]250 08/21/2024 Insurance Providers Payer Name Payer Address Payer Phone Subscriber Number Group Number Insured Name Patient Relationship to Insured Coverage Start Date Coverage End Date [facility] [address] [address] [place] [address] [id number] ELOY FERMIN Self - patient is the insured [employer] [address] [place] [address] [id number] LESA FERMIN Spouse - patient is the spouse of the insured [facility] [address] [address] [place] [address] [id number] ELOY FERMIN Self - patient is the insured 4 Medical (General) History Surgical History Surgery Date(Month/Year) Closed reduction and percuta neous pinning of a right fifth finger mallet fracture 04/11/2024
--- OUTSIDE RECORDS SUMMARY | 2025-03-21 16:48 | XMS_ITS | Encounter Summary ---
Author Organization [facility] Address [address] [place] [address] Care Team Providers Care Technical Research Scientist Name Role Phone Unavailable Primary Care Provider Unavailabl e Encounter Details Date Type Department Care Team (Late Contact Info) Description 11/20/2024 Orders Only [facility] [place] [facility] [address] [place] [address] Gifty Higgins [place] Social History Tobacco Use Types Packs/Day Years [...] Office Visit [facility] [address] [facility] 120 [place] [address] Fabio Ferreira DPM [address] [facility] [address] [place] [address] 04/19/2025 3:20 PM EST Office Visit [facility] [address] [place] [address] Paris Zuluaga PA [address] [facility] [place] [address] 11/05/2025 3:00 PM EDT Office Visit ANN [facility] [address] [facility] [place] [address] Palomo Bourgeois DO [address] [facility] [place] [address] documented as of this encounter Procedures Procedure Name Priority Date/Time Associated Diagnosis Comments PAP SMEAR Routine 10/31/2024 12:00 AM EDT documented in this encounter Results * Pap Smear (10/31/2024 12:00 AM EDT) Swab Cervical swab / Unknown us Palomo Bourgeois DO LAB CYTOLOGY ORDERABLES Final Re sult EXTERNAL LAB documented in this encounter Visit Diagnoses Not on filedocumented in this encounter
--- OUTSIDE RECORDS SUMMARY | 2025-03-21 16:48 | XMS_ITS | Encounter Summary ---
Author Organization [facility] Address [address] [place] [address] Care Team Providers Care Rn Concurrent Review Name Role Phone Unavailable Primary Care Provider Unavailabl e Encounter Details Date Type Department Care Team (Late st Contact Info) Description 03/21/2025 Bamboo flowsheet [facility] [place] [facility] [address] [facility] [place] [address] Palomo Bourgeois DO [address] [facility] [address] [place], [facility] Social History Tobacco Use Types [...] Office Visit [facility] [address] [facility] 120 [place] [address] Fabio Ferreira, DPM [address] [facility] 5 [place] [address] 04/19/2025 3:20 PM EST Office Visit ANN [facility] [address] [facility] [place] [address] Paris Zuluaga PA [address] [facility] [address] [place], [place] [address] 11/05/2025 3:00 PM EDT Office Visit ANN [facility] [address] [facility] [place] [address] Palomo Bourgeois DO [address] [facility] [address] [place], [place] [id number] documented as of this encounter Visit Diagnoses Not on filedocumented in this encounter
[2025-03-23 08:09] LABS: FSH 7.1 mIU/mL (.)
== END 2025-03-21 16:44 | disposition home or self-care (01) ==
LOC: LAB 16:44
PROVIDERS: Visit Provider Obstetrics & Gynecology
DX: E28.2 Polycystic ovarian syndrome (principal); Z76.89 Persons encountering health services in other specified circumstances; Z86.2 Personal history of diseases of the blood and blood-forming organs and certain disorders involving the immune mechanism
CPT/HCPCS: 36415; 80053; 82626; 82627; 83001; 83002; 83036; 84439; 84443; 84702; 85025